=== PATIENT | female | born 1990 | race Hispanic/Latino ===

== ENCOUNTER 2025-02-03 11:04 | Observation (INO) | payer OTHER, MEDICAID, SELFPAY ==
--- NOTE | 2025-02-03 11:50 | PC.NURSE ---
Used translation line (Isha ID # [id number]) to communicate with pt. Discussed admitting symptoms, health and history. Discussed what to expect and plan of care. Pt has no further questions at this time.
[2025-02-03 12:00] VITALS: BP 108/65; PULSE 80
[2025-02-03 12:11] LABS: Add Urine Microscopic? NO; Appearance Urine Clear (Clear); Glucose Urine UA Negative (Negative); Leukocyte Esterase Ur Negative LEU/UL (Negative); Nitrate Urine Negative (Negative); Specific Grav Ur 1.020 (1.001-1.035)
[2025-02-03 12:15] VITALS: BP 113/65; PULSE 76
[2025-02-03 12:30] VITALS: BP 112/71; PULSE 87
[2025-02-03 12:39] VITALS: BMI 37.2
--- NOTE | 2025-02-03 12:46 | OBADM ---
This patient, Lesley Evans, admitted to the OB room [facility] for observation. Patient/family oriented to hospital policies and general routines including ID bracelet, bed and alarms, visiting hours, pain management, procedures, bathroom and other care routines, personal items, smoking policy, room service/diet, and visiting hours. Patient/Family are encouraged to report perceived risks to care and to ask questions if they do not understand what they are told or what they should do.
--- OUTSIDE RECORDS SUMMARY | 2025-02-03 12:57 | XMS_ITS | Data Portability ---
Author Organization [facility] [place] Address [address] [place] [address] Assessment No assessment recorded. Plan of Treatment Reminders Order Date Submit Date Provider Last Modified By Organization Details Last Modified Time Details Appointments OB ROUTINE 2024 02:00P Conchis BACON MD Not available Not available Not available SURG CSection 2024 07:30A Conchis BACON MD Not available Not available Not available SURG POST OP 2024 11:00A Conchis BACON MD Not available Not available Not available Lab bile acids, total, serum 2024 [facility] (Lab), [address], [place], [address], 12/31/2024 13:41:43 CMP, serum or plasma 2024 025 [facility] (Lab), [address], [place], [address], 12/31/2024 13:41:42 CBC w/ auto diff 2024 [facility] (Lab), [address], [place], [address], 12/31/2024 13:41:41 iron + TIBC + ferritin, serum 2024 025 [facility] (Lab), [address], [place], [address], 12/31/2024 13:41:43 glucose tolerance test, gestation al, 3-hour 10/07/ 2025 10/07/2 025 NIRAV [facility] (Lab), [address], [place], [address], 12/31/2024 13:41:42 Referral None recorded. Procedures None recorded. Surgeries section (SURG) 2024 025 [email or web address] [facility], [address], [place], [address], 01/12/2025 13:24:48 Imaging US, obstetric , follow-up 2024 025 [email or web address] [place], [address], [place], [address], 01/12/2025 13:28:36 Medication Orders None recorded. Patient TargetsNo targets recorded. Patient InstructionsNo instructions recorded. Reason for Referral None Reported. Results Created Date Observation Date Name Description Value Unit Range Abnormal Flag Note LastModifiedBy Organization Detail LastModifiedTime 12/16/1912/15/2024 HEMOG LOBIN (HGB) HGB 11.8 g/dL (based on docume nted legal sex) 11.6-1 5.4 Not Available [facility] (Lab) [address], [place], [address], 12/16/2024 14:27:51 12/16/19 25 12/15/2024 HEMAT OCRIT (HCT) HCT 37.1 % (based on docume nted legal sex) 34.0-4 5.0 Not Available [facility] (Lab) [address], [place], [address], 12/16/2024 14:27:51 12/16/19 25 12/15/2024 GTT - GESTA ARSHPOLY Mcrae, ACOG OB glucose, 1 hour screen 173 mg/dL 70-135 high Not Available [facility] (Lab) [address], [place], [address], 12/16/2024 14:27:52 12/16/1912/15/2024 HIV 1/2 ANTIG EN/AN TIBOD Y, REFLE X CONFI RMATI ON HIV antigen/anti body Nonrea ctive nonrea ctive HIV-1 antig en and HIV-1 /HIV- 2 antib odies were not detec lina. No labor atory evide nce of HIV infec tion. Not Available [facility] (Lab) [address], [place], [address], 12/16/2024 14:27:52 12/16/1912/15/2024 RPR SCREE N, REFLE X TITER /CONF IRMAT ION RPR qualitative Nonrea ctive nonrea ctive Not Available [facility] (Lab) [address], [place], [address], 12/16/2024 14:27:53 12/31/19 25 12/30/2024 CBC W/DIF F WBC 8.5 10'3/ uL 3.5-10 .5 Not Available [facility] (Lab) [address], [place], [address], 12/31/2024 13:41:41 12/31/19 25 12/30/2024 CBC W/DIF F RBC 4.47 10'6/ uL (based on docume nted legal sex) 3.80-5 .20 Not Available [facility] (Lab) [address], [place], [address], 12/31/2024 13:41:41 12/31/19 25 12/30/2024 CBC W/DIF F HGB 12.5 g/dL (based on docume nted legal sex) 11.6-1 5.4 Not Available [facility] (Lab) [address], [place], [address], 12/31/2024 13:41:41 12/31/19 25 12/30/2024 CBC W/DIF F HCT 39.4 % (based on docume nted legal sex) 34.0-4 5.0 Not Available [facility] (Lab) [address], [place], [address], 12/31/2024 13:41:41 12/31/19 25 12/30/2024 CBC W/DIF F MCV 88.1 fL 80.0-9 9.0 Not Available [facility] (Lab) [address], [place], [address], 12/31/2024 13:41:41 12/31/19 25 12/30/2024 CBC W/DIF F MCH 28.0 pg 27.0-3 4.0 Not Available [facility] (Lab) [address], [place], [address], 12/31/2024 13:41:41 12/31/19 25 12/30/2024 CBC W/DIF F MCHC 31.7 g/dL 32.0-3 5.5 low Not Available [facility] (Lab) [address], [place], [address], 12/31/2024 13:41:41 12/31/19 25 12/30/2024 CBC W/DIF F RDW 13.8 % 11.0-1 5.0 Not Available [facility] (Lab) [address], [place], [address], 12/31/2024 13:41:41 12/31/19 25 12/30/2024 CBC W/DIF F plt 209 10'3/ uL 150-40 0 Not Available [facility] (Lab) [address], [place], [address], 12/31/2024 13:41:41 12/31/19 25 12/30/2024 CBC W/DIF F MPV 10.3 fL 8.8-12 .1 Not Available [facility] (Lab) [address], [place], [address], 12/31/2024 13:41:41 12/31/19 25 12/30/2024 CBC W/DIF F NRBC's 0.0 % 0.0 Not Available [facility] (Lab) [address], [place], [address], 12/31/2024 13:41:41 12/31/19 25 12/30/2024 CBC W/DIF F absolute NRBCs 0.0 10'3/ uL no refere nce range establ ished Not Available [facility] (Lab) [address], [place], [address], 12/31/2024 13:41:41 12/31/19 25 12/30/2024 CBC W/DIF F neutrophils 69.4 % 34.0-7 3.0 Not Available [facility] (Lab) [address], [place], [address], 12/31/2024 13:41:41 12/31/19 25 12/30/2024 CBC W/DIF F lymphocytes 24.5 % 15.0-5 0.0 Not Available [facility] (Lab) [address], [place], [address], 12/31/2024 13:41:41 12/31/19 25 12/30/2024 CBC W/DIF F monocytes 4.5 % 1.0-15 .0 Not Available [facility] (Lab) [address], [place], [address], 12/31/2024 13:41:41 12/31/19 25 12/30/2024 CBC W/DIF F eosinophils 0.6 % 0.0-8. 0 Not Available [facility] (Lab) [address], [place], [address], 12/31/2024 13:41:41 12/31/19 25 12/30/2024 CBC W/DIF F basophils 0.4 % 0.0-2. 0 Not Available [facility] (Lab) [address] [place], [address], 12/31/2024 13:41:41 12/31/19 25 12/30/2024 CBC W/DIF F immature granulocytes 0.6 % no define d refere nce range Immat ure Granu locyt es (IG) repre sents autom ated enume ratio n of Metam yeloc ytes, Myelo cytes and Promy elocy tracey when IG is < 5%. Blast s are not inclu ded in IG and repor lina separ ately if prese nt. Not Available [facility] (Lab) [address], [place], [address], 12/31/2024 13:41:41 12/31/19 25 12/30/2024 CBC W/DIF F absolute neutrophils 5.9 10'3/ uL 1.5-8. 0 Not Available [facility] (Lab) [address], [place], [address], 12/31/2024 13:41:41 12/31/19 25 12/30/2024 CBC W/DIF F absolute lymphocytes 2.1 10'3/ uL 1.0-4. 0 Not Available [facility] (Lab) [address], [place], [address], 12/31/2024 13:41:41 12/31/19 25 12/30/2024 CBC W/DIF F absolute monocytes 0.4 10'3/ uL 0.2-1. 0 Not Available [facility] (Lab) [address], [place], [address], 12/31/2024 13:41:41 12/31/19 25 12/30/2024 CBC W/DIF F absolute eosinophils 0.1 10'3/ uL 0.0-0. 6 Not Available [facility] (Lab) [address] [place], [address], 12/31/2024 13:41:41 12/31/19 25 12/30/2024 CBC W/DIF F absolute basophils 0.0 10'3/ uL 0.0-0. 3 Not Available [facility] (Lab) [address], [place], [address], 12/31/2024 13:41:41 12/31/19 25 12/30/2024 CBC W/DIF F absolute immature granulocytes 0.1 10'3/ uL 0.00-0 .10 Refer ence range s for nonbi nary/ inter sex or unspe cifie d gende r patie nts have not been estab lishe d. Pleas e refer to the follo wing table for range s estab lishe d for cisge nder patie nts and evalu ate in the clini figueroa sarahi xt of the indiv idual patie nt: [email or web address] :[email or web address] [email or web address] nm.or g/gen derx Not Available [facility] (Lab) [address], [place], [address], 12/31/2024 13:41:41 12/31/19 25 12/30/2024 GTT - GESTA ARSH L, 3 HOUR, ACOG glucose, fasting acog 73 mg/dL 70-94 Not Available [facility] (Lab) [address] [place], [address], 12/31/2024 13:41:42 12/31/19 25 12/30/2024 GTT - GESTA ARSH L, 3 HOUR, ACOG glucose, 1 hour acog 166 mg/dL 70-179 Not Available [facility] (Lab) [address] [place], [address], 12/31/2024 13:41:42 12/31/19 25 12/30/2024 GTT - GESTA ARSH L, 3 HOUR, ACOG glucose, 2 hour acog 167 mg/dL 70-154 high Not Available [facility] (Lab) [address] [place], [address], 12/31/2024 13:41:42 12/31/19 25 12/30/2024 GTT - GESTA ARSH L, 3 HOUR, ACOG glucose, 3 hour acog 137 mg/dL 70-139 Not Available [facility] (Lab) [address] [place], [address], 12/31/2024 13:41:42 12/31/19 25 12/30/2024 CMP(C OMPRE HENSI VE METAB OLIC PANEL ) sodium 137 mmol/ L 133-14 6 Not Available [facility] (Lab) [address], [place], [address], 12/31/2024 13:41:42 12/31/19 25 12/30/2024 CMP(C OMPRE HENSI VE METAB OLIC PANEL ) potassium 4.0 mmol/ L 3.5-5. 1 Not Available [facility] (Lab) [address], [place], [address], 12/31/2024 13:41:42 12/31/19 25 12/30/2024 CMP(C OMPRE HENSI VE METAB OLIC PANEL ) chloride 103 mmol/ L 98-107 Not Available [facility] (Lab) [address], [place], [address], 12/31/2024 13:41:42 12/31/19 25 12/30/2024 CMP(C OMPRE HENSI VE METAB OLIC PANEL ) carbon dioxide 24 mmol/ L 21-31 Not Available [facility] (Lab) [address], [place], [address], 12/31/2024 13:41:42 12/31/19 25 12/30/2024 CMP(C OMPRE HENSI VE METAB OLIC PANEL ) anion gap 10 mmol/ L 4-13 Not Available [facility] (Lab) [address], [place], [address], 12/31/2024 13:41:42 12/31/19 25 12/30/2024 CMP(C OMPRE HENSI VE METAB OLIC PANEL ) blood urea nitrogen 8 mg/dL 7-25 Not Available [facility] (Lab) [address], [place], [address], 12/31/2024 13:41:42 12/31/19 25 12/30/2024 CMP(C OMPRE HENSI VE METAB OLIC PANEL ) creatinine 0.39 mg/dL 0.60-1 .30 low Not Available [facility] (Lab) [address], [place], [address], 12/31/2024 13:41:42 12/31/19 25 12/30/2024 CMP(C OMPRE HENSI VE METAB OLIC PANEL ) egfrcr (CKD-epi 2020) >90 mL/mi n/1.7 3_m2 >=60 Not Available [facility] (Lab) [address], [place], [address], 12/31/2024 13:41:42 12/31/19 25 12/30/2024 CMP(C OMPRE HENSI VE METAB OLIC PANEL ) calcium 8.7 mg/dL 8.3-10 .5 Not Available [facility] (Lab) [address], [place], [address], 12/31/2024 13:41:42 12/31/19 25 12/30/2024 CMP(C OMPRE HENSI VE METAB OLIC PANEL ) glucose 173 mg/dL 70-100 high Not Available [facility] (Lab) [address], [place], [address], 12/31/2024 13:41:42 12/31/19 25 12/30/2024 CMP(C OMPRE HENSI VE METAB OLIC PANEL ) protein, total 6.4 g/dL 6.4-8. 3 Not Available [facility] (Lab) [address], [place], [address], 12/31/2024 13:41:42 12/31/19 25 12/30/2024 CMP(C OMPRE HENSI VE METAB OLIC PANEL ) albumin 3.5 g/dL 3.5-5. 0 Not Available [facility] (Lab) [address], [place], [address], 12/31/2024 13:41:42 12/31/1916 0112/30/2024 CMP(C OMPRE HENSI VE METAB OLIC PANEL ) ALT 18 units /L 9-43 Not Available [facility] (Lab) [address], [place], [address], 12/31/2024 13:41:42 12/31/19 25 12/30/2024 CMP(C OMPRE HENSI VE METAB OLIC PANEL ) alkaline phosphatase 96 units /L 34-104 Not Available [facility] (Lab) [address], [place], [address], 12/31/2024 13:41:42 12/31/19 25 12/30/2024 CMP(C OMPRE HENSI VE METAB OLIC PANEL ) AST 18 units /L 13-39 Not Available [facility] (Lab) [address], [place], [address], 12/31/2024 13:41:42 12/31/19 25 12/30/2024 CMP(C OMPRE HENSI VE METAB OLIC PANEL ) bilirubin, total 0.5 mg/dL 0.2-1. 2 Not Available [facility] (Lab) [address], [place], [address], 12/31/2024 13:41:42 12/31/19 25 12/30/2024 MIRLANDE TIN / IRON / TRANS MIRLANDE N / TIBC iron 123 ug/dL 40-170 Not Available [facility] (Lab) [address], [place], [address], 12/31/2024 13:41:43 12/31/19 25 12/30/2024 MIRLANDE TIN / IRON / TRANS MIRLANDE N / TIBC transferrin 367 mg/dL 200-36 0 high Not Available [facility] (Lab) [address], [place], [address], 12/31/2024 13:41:43 12/31/19 25 12/30/2024 MIRLANDE TIN / IRON / TRANS MIRLANDE N / TIBC ferritin 23.6 NG/mL 8.0-25 2.0 Not Available [facility] (Lab) [address], [place], [address], 12/31/2024 13:41:43 12/31/19 25 12/30/2024 MIRLANDE TIN / IRON / TRANS MIRLANDE N / TIBC TIBC 514 ug/dL 250-45 0 high Not Available [facility] (Lab) [address], [place], [address], 12/31/2024 13:41:43 12/31/19 25 12/30/2024 MIRLANDE TIN / IRON / TRANS MIRLANDE N / TIBC iron saturation 24 % 20-55 Not Available [facility] (Lab) [address], [place], [address], 12/31/2024 13:41:43 12/31/19 25 12/30/2024 BILE ACIDS , TOTAL bile acids, total 3 umol/ L 0-10 Test Perfo rmed by: Jaskaran [facility]z [facility] [address] Not Available [facility] (Lab) [address], [place], [address], 12/31/2024 13:41:43 11/18/19 25 11/17/2024 US, norie tric, limit ed No observ ation record ed. [email or web address] [place] [address], [place], [address], 11/17/2024 15:58:58 11/18/19 25 11/17/2024 US, obstnorbert tric, limit ed No observ ation record ed. anant [email or web address] [address], [place], [address], 12/29/2024 17:09:12 01/13/20 25 01/12/2025 US, elvia tric, follo w-up No observ ation record ed. [email or web address] [place] [address], [place], [address], 01/12/2025 12:15:18 01/13/20 25 01/12/2025 US, obste tric, follo w-up No observ ation record ed. NIRAV Weber [address], [place], [address], 01/26/2025 04:05:19 Result Notes None recorded. Problems Name Problem SNOMED Code Status Onset Date Resolution Date Notes Provider Name and Address Organization Details Recorded Time 90917717 Active 2024 Hilaria Kessler null, [facility] 12:41:52 Deliverie s by [id number] Active 2024 TO REPEAT C/S, would like 03/03 SHAWN BACON MD [address], [place], [address], [facility] 12:31:36 Past history of placenta previa 491081234 Active 2024 Jacob Sanders MD [address], [place], [address], [facility] 12:49:56 Bacteriur ia 41669692 Active 2024 Hilaria Kessler null, [facility] 13:18:44 Bacteriur ia 09472044 Active 2024 Hilaria Kessler null, [facility] 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 12:43:49 Problem Notes None recorded. Procedures Surgical History Date Name Laterality Status Provider Name and Address Organization Details Recorded Time Date of Last Pap Smear completed [facility] 12/29/2024 17:18:43 section completed Hilaria Kessler [facility] 01/21/2023 12:22:47 Imaging Results None recorded. Procedure Notes None recorded. Medical Equipment None Reported. Allergies No known drug allergies Medications Name Sig Start Date Stop Date Status Note LastModified by Organization Details LastModified Time fluconazole 150 mg tablet Take 1 tablet by oral route for 1 day. 11/25 completed Not Available Not Available Not Available metronidazo le 500 mg tablet Take 1 tablet twice a day by oral route for 7 days. 11/17 completed Not Available Not Available Not Available amoxicillin 500 mg tablet TAKE 1 TABLET BY MOUTH TWICE DAILY 11/17 completed Not Available Not Available Not Available active Not Available Not Avai lable Not Available Ismael Fe 1.5/30 (28) 1.5 mg-30 mcg (21)/75 mg (7) tablet TAKE 1 TABLET BY MOUTH ONCE DAILY NEEDS APPOINTME NT 07/28 completed Not Available Not Available Not Available Vitals Date Recorded Body weight Systolic And Diastolic Provider Name and Address Organization Details Last Updated DateTime 12/15/2024 57453.14440 g 103/68 mm[Hg] [facility] 12/15/2024 15:08:01 Date Recorded Body height Body mass index (BMI) Body weight Systolic And Diastolic Provider Name and Address Organization Details Last Updated DateTime 12/29/2024 144.78 cm 38.5 kg/m2 70166.44 g 110/73 mm[Hg] [facility] 12/29/2024 17:18:19 Date Recorded Body weight Body mass index (BMI) Body height Systolic And Diastolic Provider Name and Address Organization Details Last Updated DateTime 01/12/2025 32360.849 49 g 38.3 kg/m2 144.78 cm 105/64 mm[Hg] [facility] 01/12/2025 12:15:11 Date Recorded Body height Body mass index (BMI) Body weight Systolic And Diastolic Provider Name and Address Organization Details Last Updated DateTime 01/27/2025 144.78 cm 38.5 kg/m2 46867.44 g 118/69 mm[Hg] Dia Rocha [facility] 01/27/2025 16:35:03 Social History Question Answer Notes LastModified by Organizat ion Details LastModified Time Tobacco Smoking Status Never Smoker Hilaria Kessler roxana [facility] 01/21/2023 12:22:38 If You Are , What Was Your Level Of Alcohol Consumption Prior To ? Occasional Information not available 08/25/2024 Sex: Unknown Functional Status Question Answer Note LastModified by Organization D etails LastModified Time What is your level of alcohol consumption? None Information not available 08/25/2024 Mental Status None recorded. Family History Relationship Description Onset Age of this Age Resolved Age Notes LastModified by Organization Details LastModified Time Mother Hypertensive disorder [email or web address] Not available 2022 12:22:26 Maternal Grandmother Osteoporosis [email or web address] Not available 01/21/2023 12:22:34 Maternal Grandfather Heart disease [email or web address] Not available 2024 12:06:37 Paternal Grandfather Diabetes mellitus [email or web address] Not available 2024 12:07:04 Paternal Grandmother Diabetes mellitus [email or web address] Not available 2024 12:07:04 Medical History No medical history recorded. Gynecological History Statement/Question Response Date of LMP 05/21/2024 STIs/STDs Y Age of first menstrual cycle 15 Date of Last Pap Smear 08/25/2024 Current Control Method Desired Control Method BCPs LMP Definite Obstetrics History GPAL:G 2 P 1 0 0 1 Type Value Full Term 1 Living 1 Total 2 Past Encounters Encounter ID Performer Location Encounter Start Date Encounter Closed Date Diagnosis/Indication Diagnosis SNOMED-CT Code Diagnosis ICD10 Code Diagnosis IMO Codes Diagnosis Note [id number] Jacob Sanders MD [place] [address] [address] 01/21/2023 10:57:41 01/21/2023 12:55:37 Contraception care management 495821516 Z30.9 Gynecologi c examination 16897391 Z01.419 Annual gynecologi figueroa exam performed. Patient will come back in a year unless there are new symptoms. Suggest Calcium with Vitamin D if not eating in diet. Patient advised to get annual flu shot. Recommend yearly physicals and preform monthly breast exams. Genetic testing is available for patients with family history of cancer. Engage in safe sexual practices, use condoms. Encouraged to have daily exercise. Avoid tobacco and illicit drugs, moderation of alcohol. If BMI greater than 25 dietary consult advised. If you have any questions please call or email. Pap smear- today laboratory evaluation - declined [id number] Jacob Sanders MD [place] [address],[place] [address] 06/29/2024 12:53:38 06/29/2024 13:42:01 Uncertain viability of 005659556 O36.80X0 Z3A.01 [id number] Jacob Sanders MD [place] [address],[place] [address] 07/16/2024 11:04:37 07/16/2024 11:34:30 screening 645633553 Z36.87 Z3A.01 [id number] Jacob Sanders MD [place] [address],[place] [address] 07/28/2024 11:10:44 07/28/2024 11:55:33 Fundal height high for dates 267345629 O26.849 Z3A.08 266465 [id number] Jacob Sanders MD [place] [address],[place] [address] 07/28/2024 11:10:58 07/28/2024 12:47:52 Amenorrhea 90855000 N91.2 37996 this patient is a 34-year-ol d female who presents for amenorrhea . She is a positive test. Ultrasound revealed a 1st trimester gestation. Patient has no complaints . We talked about early care. Talked about genetic screening. We talked about her ultrasound results. We talked about the 12 week ultrasound that has genetic screening components . She was given recommenda tions on exercise, diet, over-the-c ounter medication s. We reviewed her obstetric history. We reviewed her medical history. We reviewed her social history. She will begin routine care at her next visit. [id number] Jacob Sanders MD [place] [address],[place] [address] 08/25/2024 11:38:24 08/25/2024 13:36:34 screening 107462427 Z36.82 Z3A.12 473498 [id number] Jacob Sanders MD [place] [address],[place] [address] 08/25/2024 11:38:57 08/25/2024 12:57:33 care status 514068084 Z34.82 70282582 [id number] SHAWN BACON MD [place] [address],[place] [address] 09/22/2024 11:17:49 09/22/2024 15:51:21 Hog Ribber needed 775573822 Z75.8 9626053733 Gestation period, 16 weeks 83071654 Z3A.16 7654908 [id number] SHAWN BACON MD [place] [address],[place] [address] 10/20/2024 10:30:28 10/20/2024 11:49:04 Ultrasound scan - obstetric 560705144 Z36.3 Z3A.20 97364 [id number] SHAWN BACON MD [place] [address],[place] [address] 10/20/2024 10:30:39 10/20/2024 12:52:06 Genetic disorder carrier 67895963 Z14.8 010529 + carrier for SMA and alpha thalassemi a; needs partner testing prior to next Deliveries by [id number] O82 905521 - desires RCS Gestation period, 20 weeks 53036460 Z3A.20 5980752 [id number] MD Timur BALL [address],[place] [address] 11/17/2024 12:10:34 11/17/2024 14:20:54 Deliveries by [id number] O82 [id number] - [facility] Bacteriuria 66552718 O99 .820 51541806 Gestation period, 24 weeks 857647260 Z3A.24 0997374 [id number] MD Timur BALL [address],[place] [address] 11/17/2024 12:55:45 11/17/2024 13:20:14 Finding related to 777471965 Z03.72 Z3A.24 1669505 [id number] MD Timur BALL [address],[place] [address] 12/15/2024 14:54:05 12/15/2024 15:57:01 Deliveries by [id number] O82 094668 - [facility] Gestation period, 28 weeks 32584051 Z3A.28 1069724 [id number] MD Timur BALL [address],[place] [address] 12/29/2024 17:08:45 01/01/2025 08:55:23 Itching of skin 251280252 L29.89 [id number] Deliveries by [id number] O82 [id number] - [facility] Gestation period, 30 weeks 33563919 Z3A.30 0333762 [id number] MD Timur BALL [address],[place] [address] 01/12/2025 11:06:56 01/12/2025 12:11:01 Placenta circumvallata 7073479 O43.113 Z3A.32 5418527 [id number] MD Timur BALL [address],[place] [address] 01/12/2025 11:07:09 01/12/2025 12:46:52 Deliveries by [id number] O82 021677 - [facility] Gestation period, 32 weeks 8454476 Z3A.32 7767536 [id number] MD Timur BALL [address] [address],[place] [address] 01/27/2025 16:23:34 01/27/2025 17:02:24 Bacteriuria [id number] O99.820 [id number] Deliveries by [id number] - desires [facility] Concerns Section Related Observation LastModified by Organization Detai ls LastModified Time None Recorded Concern Status LastModified by Organization Details LastModified Time None Recorded Advance Directives Directive None Recorded Payers Insurance Date Sequence Insurance Name Policy Number Policy Guillen Covered Member ID Guillen Member ID Guarantor Name 06/29/2024 1 *SELF PAY* Amee cyr Evans 01/24/2025 1 [facility] [id number] Neptrixie C Evans [id number] Nepmary Evans 01/24/2025 2 [place] [facility] Gigiy Evans [id number] Nepmary Evans Notes Date Note Type Note Provider Name and Address Organization Details Recorded Time 12/15/2024 text/html Generic HPI TemplateReported by Patient SHAWN BACON MD [address], [place], [address], [facility] 12/15/2024 15:56:24 12/29/2024 text/html Generic HPI TemplateReported by Patient SHAWN ABCON MD [address], [place], [address], [facility] 01/01/2025 00:25:51 01/12/2025 text/html Generic HPI TemplateReported by Patient Dia schmidt, [facility] 01/12/2025 14:45:18 01/27/2025 text/html Generic HPI TemplateReported by Patient SHAWN BACON MD [address], [place], [address], [facility] 01/27/2025 17:01:00 OBGyn Episode Ob Episode Information Episode Created Date Number of Fetuses Patient Bloodtype Patient rh Status Prepregnancy Weight lbs Domestic Partner Domestic Partner Phone Father Name Security System Engineer Status 01/22/20 23 1 CLOSED Fetus Data First Name Last Name Admitted to NICU Weight (g) Sex Living Outcome Pediatric Complications Fetus ID Race Codes Race Delivery Type 5.88 [id number] F Full Term [id number] Primary Lawrence Calculation Initial Lawrence Date Initial Exam Date Initial Exam Provider Initial Ultrasound Date Last Menstrual Period Date Ultra Sound Weeks Gestation 0 Eighteen To Twenty Week Lawrence Update Ultra Sound Date Fundal Height At Umbil Quickening Date Ultra Sound Latest Weeks Gestation Final Lawrence Confirmed By Final Lawrence Confirmed Date Final Lawrence Date Ultra Sound Latest Days Gestation 0 0 Menstrual History Last Menstrual Date Menses Monthly On Bcp Conception Prior Menses Frequency Hcg Plus Date Menarche Onset Age Delivery Information Delivery Date Delivery Type Labor Anesthesia Weeks Gestation Incision Type Labor Labor Length Hrs Delivered By Post Complications Tubal Sterilization Discharge Date Comments 5 38 Carlott a placenta previa Discharge Information Feeding Method Contraceptive Method Maternal HG B and HCT Levels Ob Episode Information Episode Created Date Number of Fetuses Patient Bloodtype Patient rh Status Prepregnancy Weight lbs Domestic Partner Domestic Partner Phone Father Name Security System Engineer Status 08/26/19 25 1 O Positive [address] Paolo s OPEN Fetus Data First Name Last Name Admitted to NICU Weight (g) Sex Living Outcome Pediatric Complications Fetus ID Race Codes Race Delivery Type [id number] Problems Problem Notes Problem Name Start Date End Date Resolution Snomed Code Not e Bacteriuria 09/04/2024 [id number] Genetic disorder carrier 10/20/2024 [id number] + 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; needs partner testing prior to next Past history of placenta previa 08/25/2024 [id number] Deliveries by 08/25/[id number] TO REPEAT C/S, would like 03/03 Lawrence Calculation Initial Lawrence Date Initial Exam Date Initial Exam Provider Initial Ultrasound Date Last Menstrual Period Date Ultra Sound Weeks Gestation 08/25/2024 07/16/2024 05/21/2024 6 Eighteen To Twenty Week Lawrence Update Ultra Sound Date Fundal Height At Umbil Quickening Date Ultra Sound Latest Weeks Gestation Final Lawrence Confirmed By Final Lawrence Confirmed Date Final Lawrence Date Ultra Sound Latest Days Gestation 0 [email or web address] 08/25/2024 03/06/20 25 0 Pre-paul Flowsheet Flowsheet Date 08/25/2024 Cuevas Score Blood Edema Fundus Height Fundus Units Glucose Ketones Leukocytes Nitrite Labor Signs Protein Cervic Dilation Cervic Effacement Cervic Station Type Weight in lbs Pre/Post Dialysis Refused BP Diastolic BP Location Tested BP Systolic BP Type Fetus Heart Rate Present Fetus Movement Comments Flowsheet Date 08/25/2024 Cuevas Score Blood Edema Fundus Height Fundus Units Glucose Ketones Leukocytes Nitrite Labor Signs Protein Cervic Dilation Cervic Effacement Cervic Station Type Weight in lbs Pre/Post Dialysis Refused Weight 163.772334632331 BP Diastolic BP Location Tested BP Systolic BP Type 83 L arm 120 sitting Fetus Heart Rate Present Fetus Movement A No Comments this patient is a 34-year-ol d multiparous female at 12 weeks' gestation who presents for initial care. She has a history of term . Her medical, surgical, obstetric history is unremarkable. She is vaccinated. She was given precautions recommendations for . We talked about vaccines in . Talked about care in detail. She is having genetic testing. She had a normal 12 week ultrasound. To begin routine care. Flowsheet Date 09/22/2024 Cuevas Score Blood Edema Fundus Height Fundus Units Glucose Ketones Leukocytes Nitrite Labor Signs Protein Cervic Dilation Cervic Effacement Cervic Station Type Weight in lbs Pre/Post Dialysis Refused Weight 166.961075565255 BP Diastolic BP Location Tested BP Systolic BP Type 66 L arm 106 sitting Fetus Heart Rate Present A 145 Fetus Movement A Yes Comments Doing well. Had some vaginal itching, BV on pap smear. Medications sent yesterday, has not started yet. Used OTC miconazole x2, no improvement. Having some bilateral leg swelling. Hx of placenta previa in her prior , discussed that this has low risk of recurrence. Anatomy US next visit. OB labs wnl, NIPT to be drawn today. RTC 4 weeks. Flowsheet Date 10/20/2024 Cuevas Score Blood Edema Fundus Height Fundus Units Glucose Ketones Leukocytes Nitrite Labor Signs Protein Cervic Dilation Cervic Effacement Cervic Station Type Weight in lbs Pre/Post Dialysis Refused BP Diastolic BP Location Tested BP Systolic BP Type Fetus Heart Rate Present Fetus Movement Comments Flowsheet Date 10/20/2024 Cuevas Score Blood Edema Fundus Height Fundus Units Glucose Ketones Leukocytes Nitrite Labor Signs Protein Cervic Dilation Cervic Effacement Cervic Station Type Weight in lbs Pre/Post Dialysis Refused Weight 168.634957627122 BP Diastolic BP Location Tested BP Systolic BP Type 70 L arm 108 sitting Fetus Heart Rate Present A Present Fetus Movement A Yes Comments Good movement. No furt her itching, now resolved. Anatomy US normal and complete, EFW 75%. Repeat at 32 weeks. No evidence of placenta previa. LR male NIPT! Carrier screening +SMA and alpha thal, discussed with patient. Recommend partner testing prior to next . Flowsheet Date 11/17/2024 Cuevas Score Blood Edema Fundus Height Fundus Units Glucose Ketones Leukocytes Nitrite Labor Signs Protein Cervic Dilation Cervic Effacement Cervic Station Type Weight in lbs Pre/Post Dialysis Refused BP Diastolic BP Location Tested BP Systolic BP Type Fetus Heart Rate Present Fetus Movement Comments Flowsheet Date 11/17/2024 Cuevas Score Blood Edema Fundus Height Fundus Units Glucose Ketones Leukocytes Nitrite Labor Signs Protein Cervic Dilation Cervic Effacement Cervic Station Type Weight in lbs Pre/Post Dialysis Refused Weight 172.211829545785 BP Diastolic BP Location Tested BP Systolic BP Type 72 L arm 108 sitting Fetus Heart Rate Present A 150 Fetus Movement A Yes Comments Having increased vaginal dis charge and irritation. Has tried clotrimazole cream without relief. Will send diflucan. Having less movement since hitting her belly on a door at work. No bleeding or cramping. Will follow with ultrasound to evaluate. Discussed GCT and labs for next visit. RTC 4 weeks. Flowsheet Date 12/15/2024 Cuevas Score Blood Edema Fundus Height Fundus Units Glucose Ketones Leukocytes Nitrite Labor Signs Protein Cervic Dilation Cervic Effacement Cervic Station Type Weight in lbs Pre/Post Dialysis Refused 178.090246001456 BP Diastolic BP Location Tested BP Systolic BP Type 68 L arm 103 sitting Fetus Heart Rate Present A 145 Fetus Movement A Yes Comments Doing well, baby active. No cramping or bleeding. GCT and labs today. Discussed tdap and RSV vaccine. Repeat growth US at 32 weeks. RTC 2 weeks. Flowsheet Date 12/29/2024 Cuevas Score Blood Edema Fundus Height Fundus Units Glucose Ketones Leukocytes Nitrite Labor Signs Protein Cervic Dilation Cervic Effacement Cervic Station Type Weight in lbs Pre/Post Dialysis Refused Weight 178.625674628711 BP Diastolic BP Location Tested BP Systolic BP Type 73 L arm 110 sitting Fetus Heart Rate Present A 135 Fetus Movement A Yes Comments Good movement. No blee ding. Reports right sided arm, torso and leg pain and itching of 6/10. Will check bile acids, CMP and ferritin. Discussed tdap and RSV vaccine. GCT elevated, discussed 3h GTT. Will come in tomorrow morning. Repeat growth US next visit at 32 weeks. Flowsheet Date 01/12/2025 Cuevas Score Blood Edema Fundus Height Fundus Units Glucose Ketones Leukocytes Nitrite Labor Signs Protein Cervic Dilation Cervic Effacement Cervic Station Type Weight in lbs Pre/Post Dialysis Refused BP Diastolic BP Location Tested BP Systolic BP Type Fetus Heart Rate Present Fetus Movement Comments Flowsheet Date 01/12/2025 Cuevas Score Blood Edema Fundus Height Fundus Units Glucose Ketones Leukocytes Nitrite Labor Signs Protein Cervic Dilation Cervic Effacement Cervic Station Type Weight in lbs Pre/Post Dialysis Refused 177.792999370725 BP Diastolic BP Location Tested BP Systolic BP Type 64 L arm 105 sitting Fetus Heart Rate Present A Present Fetus Movement A Yes Comments Doing well, good movem ent. Itching has improved. Bile acids and CMP wnl. Passed 3h GTT. EFW 63%, vertex, MAGDALENO wnl. Discussed tdap and RSV vaccine, vaccine orders given. Will schedule preadmission and RCS. RTC 2 weeks. Flowsheet Date 01/27/2025 Cuevas Score Blood Edema Fundus Height Fundus Units Glucose Ketones Leukocytes Nitrite Labor Signs Protein Cervic Dilation Cervic Effacement Cervic Station Type Weight in lbs Pre/Post Dialysis Refused Weight 178.423149853791 BP Diastolic BP Location Tested BP Systolic BP Type 69 L arm 118 sitting Fetus Heart Rate Present Fetus Movement A Yes Comments Good movement. No cram ping or bleeding. Discussed day of c section. Patient would like to start leave at 36 weeks due to very physical job. Will send [facility] paperwork to the office. Received tdap, RSV and flu vaccines. Preadmission scheduled. RTC 2 weeks. Menstrual History Last Menstrual Date Menses Monthly On Bcp Conception Prior Menses Frequency Hcg Plus Date Menarche Onset Age 0205/21/2024 true Delivery Information Delivery Date Delivery Type Labor Anesthesia Weeks Gestation Incision Type Labor Labor Length Hrs Delivered By Post Complications Tubal Sterilization Discharge Date Comments Discharge Information Feeding Method Contraceptive Method Maternal HG B and HCT Levels
[2025-02-03 13:00] VITALS: BP 114/70; PULSE 69
--- NOTE | 2025-02-03 13:21 | PC.NURSE ---
Dr. Slater on unit and informed pt c/o abdominal pain last night that kept her from being able to sleep. Yesterday she felt like she leaked fluid once after using the bathroom. ROM plus was negative. FHT's reactive with occasional contraction noted. Pt just feeling an occasional pressure now, nothing like last night. Order received to check cervix and then may discharge to home.
--- NOTE | 2025-02-03 13:27 | PC.NURSE ---
SVE is closed, thick, -2 station and posterior.
[2025-02-03 13:32] LABS: OBXCEM ROM Plus Negative (Negative)
--- NOTE | 2025-02-08 17:11 | P.PNOB_ITS ---
OB - Triage/Final Diagnosis Visit Information Comments/Additional reasons for admission: I have assessed the risk for this patient, Lesley Evans, and determined that she would benefit from observation care. Evaluation Laboratory results: Laboratory Tests 02/03/25 02/03/25 12:04 13:00 Urine Color Yellow Urine Appearance Clear Urine pH 6.5 Ur Specific [place] 1.020 Urine Protein Negative Urine Glucose (UA) Negative Urine Ketones Negative Ur Blood (Man) Negative Urine Nitrate Negative Urine Bilirubin Negative Urine Urobilinogen 1.0 Leukocyte Esterase Rfl Negative Membranes Rupture Rom plus negative Final Diagnosis (1) Abdominal pain affecting : Code(s): O26.899 - Other specified related conditions, unspecified trimester; R10.9 - Unspecified abdominal pain Status: Acute
== END 2025-02-03 14:10 | disposition home or self-care (01) ==
LOC: ANHOBPP 13:52 → ANHLDR 14:24
PROVIDERS: Admitting Provider Obstetrics & Gynecology; Visit Provider Obstetrics & Gynecology
DX: O26.893 Other specified pregnancy related conditions, third trimester (principal); Z3A.36 36 weeks gestation of pregnancy; R10.9 Unspecified abdominal pain
CPT/HCPCS: 81003; 84112; G0378; G0379

== ENCOUNTER 2025-03-03 05:12 | Inpatient (IN) | payer OTHER, MEDICAID, SELFPAY ==
[2025-03-03] VITALS (76 sets, daily range): BP systolic 88–136; BP diastolic 50–98; PULSE 40–100; RESP 15–20; TEMP 36.3–36.8; O2SAT 84–100; BMI 39.0
--- OUTSIDE RECORDS SUMMARY | 2025-03-03 00:35 | XMS_ITS | Continuity of Care Document ---
Author Organization [facility] [place], P.[place], [place] Address [address] [place] [address] Assessment No assessment recorded. Plan of Treatment Reminders Order Date Submit Date Provider Last Modified By Organization Details Last Modified Time Details Appointments SURG CSection 2024 07:30A Conchis BACON MD Not available Not available Not available SURG POST OP 2024 11:00A Conchis BACON MD Not available Not available Not available Lab None recorded. Referral None recorded. Procedures None recorded. Surgeries None recorded. Imaging None recorded. Medication Orders None recorded. Patient TargetsNo targets recorded. Patient InstructionsNo instructions recorded. Reason for Referral None Reported. Results Created Date Observation Date Name Description Value Unit Range Abnormal Flag Note LastModifiedBy Organization Detail LastModifiedTime 09/29/19 25 09/28/2024 [UNIT Y] ANEUP LOIDY NIPT fraction 4.6% normal Not Available [facility] [address], [place], [address], 09/28/2024 23:42:26 09/29/19 25 09/28/2024 [UNIT Y] ANEUP LOIDY NIPT 22Q11.2 microdeletio n LOW RISK <1 in 10,000 normal Not Available [facility] [address], [place], [address], 09/28/2024 23:42:26 09/29/19 25 09/28/2024 [UNIT Y] ANEUP LOIDY NIPT sex chromosome aneuploidy NOT DETECT ED normal Not Available [facility] [address], [place], [address], 09/28/2024 23:42:26 09/29/19 25 09/28/2024 [UNIT Y] ANEUP LOIDY NIPT monosomy X LOW RISK <1 in 10,000 normal Not Available [facility] [address], [place], [address], 09/28/2024 23:42:26 09/29/19 25 09/28/2024 [UNIT Y] ANEUP LOIDY NIPT trisomy 13 LOW RISK <1 in 10,000 normal Not Available [facility] [address], [place], [address], 09/28/2024 23:42:26 09/29/19 25 09/28/2024 [UNIT Y] ANEUP LOIDY NIPT trisomy 18 LOW RISK <1 in 10,000 normal Not Available [facility] [address], [place], [address], 09/28/2024 23:42:26 09/29/19 25 09/28/2024 [UNIT Y] ANEUP LOIDY NIPT trisomy 21 LOW RISK <1 in 10,000 normal Not Available [facility] [address], [place], [address], 09/28/2024 23:42:26 09/29/19 25 09/28/2024 [UNIT Y] ANEUP LOIDY NIPT sex MALE normal Not Available [facility] [address], [place], [address], 09/28/2024 23:42:26 09/29/19 25 09/28/2024 [UNIT Y] ANEUP LOIDY NIPT gestation SINGLE TON normal Not Available [facility] [address], [place], [address], 09/28/2024 23:42:26 09/29/19 25 09/28/2024 [UNIT Y] ANEUP LOIDY NIPT for detailed report, see pdf See PDF normal Not Available [facility] [address], [place], [address], 09/28/2024 23:42:26 10/08/19 25 10/07/2024 [UNIT Y] CHARLEEN Mcrae fraction 5.7% normal Not Available [facility] [address], [place], [address], 10/07/2024 00:49:52 10/08/19 25 10/07/2024 [UNIT Y] CHARLEEN CATHIE TYSON N alpha-thalas semia nipt result LOW RISK 1 in 2,300 ( patern al ethnic ity); 1 in 14,000 (Gener al popula tion) normal Not Available [facility] [address], [place], [address], 10/07/2024 00:49:52 10/08/19 25 10/07/2024 [UNIT Y] CHARLEEN TYSON N spinal muscular atrophy nipt result LOW RISK 1 in 4000 normal Not Available [facility] [address], [place], [address], 10/07/2024 00:49:52 10/08/19 25 10/07/2024 [UNIT Y] CHARLEEN Mcrae sickle cell disease/beta -thalassemia /hemoglobino pathies carrier screen NEGATI VE normal Not Available [facility] [address], [place], [address], 10/07/2024 00:49:52 10/08/19 25 10/07/2024 [UNIT Y] CHARLEEN TYSON N alpha-thalas semia carrier screen POSITI VE Silent tanvi r; aa/a- abnormal Not Available [facility] [address], [place], [address], 10/07/2024 00:49:52 10/08/19 25 10/07/2024 [UNIT Y] CHARLEEN TYSON N cystic fibrosis carrier screen NEGATI VE normal Not Available [facility] [address], [place], [address], 10/07/2024 00:49:52 10/08/19 25 10/07/2024 [UNIT Y] CHARLEEN Mcrae spinal muscular atrophy carrier screen POSITI VE 1 SMN1 copy abnormal Not Available [facility] [address], [place], [address], 10/07/2024 00:49:52 10/08/19 25 10/07/2024 [UNIT Y] CHARLEEN Mcrae for detailed report, see pdf See PDF normal Not Available [facility] [address], [place], [address], 10/07/2024 00:49:52 08/26/19 25 08/25/2024 CBC W/DIF F WBC 8.4 10'3/ uL 3.5-10 .5 Not Available [facility] (Lab) [address], [place], [address], 08/26/2024 12:03:47 08/26/19 25 08/25/2024 CBC W/DIF F RBC 4.46 10'6/ uL (based on docume nted legal sex) 3.80-5 .20 Not Available [facility] (Lab) [address] [place], [address], 08/26/2024 12:03:47 08/26/19 25 08/25/2024 CBC W/DIF F HGB 12.3 g/dL (based on docume nted legal sex) 11.6-1 5.4 Not Available [facility] (Lab) [address] [place], [address], 08/26/2024 12:03:47 08/26/19 25 08/25/2024 CBC W/DIF F HCT 37.8 % (based on docume nted legal sex) 34.0-4 5.0 Not Available [facility] (Lab) [address], [place], [address], 08/26/2024 12:03:47 08/26/19 25 08/25/2024 CBC W/DIF F MCV 84.8 fL 80.0-9 9.0 Not Available [facility] (Lab) [address], [place], [address], 08/26/2024 12:03:47 08/26/19 25 08/25/2024 CBC W/DIF F MCH 27.6 pg 27.0-3 4.0 Not Available [facility] (Lab) [address], [place], [address], 08/26/2024 12:03:47 08/26/19 25 08/25/2024 CBC W/DIF F MCHC 32.5 g/dL 32.0-3 5.5 Not Available [facility] (Lab) [address], [place], [address], 08/26/2024 12:03:47 08/26/19 25 08/25/2024 CBC W/DIF F RDW 13.2 % 11.0-1 5.0 Not Available [facility] (Lab) [address], [place], [address], 08/26/2024 12:03:47 08/26/19 25 08/25/2024 CBC W/DIF F plt 254 10'3/ uL 150-40 0 Not Available [facility] (Lab) [address], [place], [address], 08/26/2024 12:03:47 08/26/19 25 08/25/2024 CBC W/DIF F MPV 10.2 fL 8.8-12 .1 Not Available [facility] (Lab) [address], [place], [address], 08/26/2024 12:03:47 08/26/19 25 08/25/2024 CBC W/DIF F NRBC's 0.0 % 0.0 Not Available [facility] (Lab) [address], [place], [address], 08/26/2024 12:03:47 08/26/19 25 08/25/2024 CBC W/DIF F absolute NRBCs 0.0 10'3/ uL no refere nce range establ ished Not Available [facility] (Lab) [address] [facility], [place], [address], 08/26/2024 12:03:47 08/26/19 25 08/25/2024 CBC W/DIF F neutrophils 67.0 % 34.0-7 3.0 Not Available [facility] (Lab) [address] [facility], [place], [address], 08/26/2024 12:03:47 08/26/19 25 08/25/2024 CBC W/DIF F lymphocytes 24.5 % 15.0-5 0.0 Not Available [facility] (Lab) [address] [facility], [place], [address], 08/26/2024 12:03:47 08/26/19 25 08/25/2024 CBC W/DIF F monocytes 6.3 % 1.0-15 .0 Not Available [facility] (Lab) [address] [facility], [place], [address], 08/26/2024 12:03:47 08/26/19 25 08/25/2024 CBC W/DIF F eosinophils 1.2 % 0.0-8. 0 Not Available [facility] (Lab) [address] [place], [address], 08/26/2024 12:03:47 08/26/19 25 08/25/2024 CBC W/DIF F basophils 0.2 % 0.0-2. 0 Not Available [facility] (Lab) [address] [facility], [place], [address], 08/26/2024 12:03:47 08/26/19 25 08/25/2024 CBC W/DIF F immature granulocytes 0.8 % no define d refere nce range Immat ure Granu locyt es (IG) repre sents autom ated enume ratio n of Metam yeloc ytes, Myelo cytes and Promy elocy tracey when IG is < 5%. Blast s are not inclu ded in IG and repor lina separ ately if prese nt. Not Available [facility] (Lab) [address] [facility], [place], [address], 08/26/2024 12:03:47 08/26/19 25 08/25/2024 CBC W/DIF F absolute neutrophils 5.6 10'3/ uL 1.5-8. 0 Not Available [facility] (Lab) [address] [facility], [place], [address], 08/26/2024 12:03:47 08/26/19 25 08/25/2024 CBC W/DIF F absolute lymphocytes 2.1 10'3/ uL 1.0-4. 0 Not Available [facility] (Lab) [address] [facility], [place], [address], 08/26/2024 12:03:47 08/26/19 25 08/25/2024 CBC W/DIF F absolute monocytes 0.5 10'3/ uL 0.2-1. 0 Not Available [facility] (Lab) [address] [facility], [place], [address], 08/26/2024 12:03:47 08/26/19 25 08/25/2024 CBC W/DIF F absolute eosinophils 0.1 10'3/ uL 0.0-0. 6 Not Available [facility] (Lab) [address] [facility], [place], [address], 08/26/2024 12:03:47 08/26/19 25 08/25/2024 CBC W/DIF F absolute basophils 0.0 10'3/ uL 0.0-0. 3 Not Available [facility] (Lab) [address] [place], [address], 08/26/2024 12:03:47 08/26/19 25 08/25/2024 CBC W/DIF F absolute immature granulocytes 0.1 10'3/ uL 0.00-0 .10 Refer ence range s for nonbi nary/ inter sex or unspe cifie d gende r patie nts have not been estab lishe d. Pleas e refer to the [facility] table for range s estab lishe d for cisge nder patie nts and evalu ate in the clini figueroa sarahi xt of the indiv idual patie nt: https :[email or web address] book. [email or web address].or g/gen derx Not Available [facility] (Lab) [address], [place], [address], 08/26/2024 12:03:47 08/26/1908/25/2024 TYPE/ RH/SC REEN ABO/Rh type O POS Not Available [facility] (Lab) [address] [place], [address], 08/26/2024 12:03:48 08/26/19 25 08/25/2024 TYPE/ RH/SC REEN antibody screen NEG Not Available [facility] (Lab) [address], [place], [address], 08/26/2024 12:03:48 08/26/19 25 08/25/2024 TYPE/ RH/SC REEN exp date 2024 23:59 Not Available [facility] (Lab) [address] [place], [address], 08/26/2024 12:03:48 08/26/19 25 08/25/2024 HEPAT ITIS B SURFA CE ANTIG EN hepatitis B surface antigen Non-re active non-re active This assay was perfo rmed using [employer] ratio n reage nts and test kits. Value s obtai ellie with other assay metho ds or kits canno t be used inter smith eably . Not Available [facility] (Lab) [address], [place], [address], 08/26/2024 12:03:48 08/26/19 25 08/25/2024 HEPAT ITIS C ANTIB JAMEEL SCREE N, REFLE X TO CONFI RMATI ON hepatitis C antibody Non-re active non-re active Antib odies to HCV Not Detec lina, does not exclu de the possi bilit y of expos ure to HCV. Not Available [facility] (Lab) [address] [place], [address], 08/26/2024 12:03:49 08/26/19 25 08/25/2024 TSH, REFLE X FREE T4 TSH 1.44 uIU/m L 0.30-5 .33 Not Available [facility] (Lab) [address] [place], [address], 08/26/2024 12:03:49 08/26/19 25 08/25/2024 RUBEL LA IGG ANTIB JAMEEL, QUANT rubella antibodies, IgG Reacti ve reacti ve Not Available [facility] (Lab) [address] [place], [address], 08/26/2024 12:03:50 08/26/19 25 08/25/2024 RUBEL LA IGG ANTIB JAMEEL, QUANT rubella antibodies, IgG quant 242.9 IU/mL >=10 Non-r eacti ve (Non- Immun e) <10 IU/mL React veronica (Immu ne) > or = 10 IU/mL Not Available [facility] (Lab) [address] [place], [address], 08/26/2024 12:03:50 08/26/19 25 08/25/2024 HEMOG LOBIN A1C hemoglobin A1C 4.8 % 4.0-5. 6 The Ameri can [employer]abe tracey [employer] iatio n recom mends that a prima ry goal of thera py rosaul d be a HBA1C of < 7% and that physi cians rosaul d reeva luate the treat ment regim en in patie nts with HBA1C value s consi stent ly > 8%. <5.7% Laure l 5.7 - 6.4% Incre ased risk for diabe tracey >=6.5 % Diagn ostic of diabe tracey <7.0% Goal of thera py >8.0% Actio n sugge sted Not Available [facility] (Lab) [address] [facility], [place], [address], 08/26/2024 12:03:50 08/26/19 25 08/25/2024 RPR SCREE N, REFLE X TITER /CONF IRMAT ION RPR qualitative Nonrea ctive nonrea ctive Not Available [facility] (Lab) [address] [facility], [place], [address], 08/26/2024 12:03:51 08/26/19 25 08/25/2024 IMAGE GUIDE D PAP AND HPV REGAR DLESS image guided Pap, HPV regardless of Pap result SEE RESULT S BELOW CASE REPOR T: Cytol ogy Gynec ologi figueroa Repor t Case: [id number] Autho shelley g Provi ruben: Madeline Sanders MD Colle cted: 08/25 1442 Order ing Locat ion: [place] Path[facility] Recei adriana: 08/26 0738 First Scree n: Jessica Gaytan een: Brandon Robles ed, CT Speci men: Screnorbert luana Pap - Image d, Cervi x STATE MENT OF ADEQU ACY: Satis facto ry for evalu ation Trans forma tion zone compo nent prese nt ----- ----- ----- ----- ----- ----- ----- ----- ----- ----- ----- ----- ----- ----- ----- ----- ----- ---- FINAL DIAGN OSIS: Negat veronica for Intra epith elial Lesio n or Casa funes (NIL) . Shift in dania sugge stive of bacte rial vagin osis. Elect alan diaz d by Brandon Robles ed, CT on 025 at 2320 CDT ----- ----- ----- ----- ----- ----- ----- ----- ----- ----- ----- ----- ----- ----- ----- ----- ----- ---- HPV RESUL TS: HPV mRNA E6/E7 : No HPV mRNA Detec lina NOTE: This high risk HPV mRNA assay detec ts fourt een high- risk HPV types (16, 18, 31, 33, 35, 39, 45, 51, 52, 56, 58, 59, 66, 68) witho ut diffe renti ation . COMME NT: This speci men was revie wed by a Cytot echno logis t and/o r Patho logis t (as indic ated in this repor t) after evalu ation using the Thinp rep Imagi ng Syste m. CLINI FIGUEROA INFOR MATIO N: Menst rual Statu s: LMP (if appli cable ): 2024 Clini figueroa Histo ry/Pr eviou s Pap: Type of Neopl aroldo (if appli cable ): Signi fican t Clini figueroa Findi ngs: Other Histo ry: Hormo mayra (if appli cable ): PAP EDUCA ARSH L NOTE: The Pap Test is a scree luana test with an inher ent false negat veronica rate. Liqui d-bas ed sampl ing may decre ase, but will not elimi santos, false negat veronica resul ts. A negat veronica resul t does not precl ude the prese nce and/o r devel opmen t of disea se, since the prese nce of abnor mal cells in the sampl e depen ds on the locat ion of the lesio n and sampl ing techn ique. Karen nued regul ar scree luana is the best metho d of cance r preve ntion . If repor lina cytol ogic findi ng do not corre late with physi figueroa and/o r histo rical findi ngs, furth er inves tigat ion is recom torey d, as clini lala summers nted. Not Available [facility] (Lab) [address] [facility], [place], [address], 08/27/2024 04:01:28 08/26/19 25 08/25/2024 CULTU RE: URINE result report SEE RESULT S BELOW abnormal Test: Cultu re: Urine Speci men Sourc e: Urine Voide d Speci men Type: Urine Speci men Date: 1442 Resul t Date: 257 Resul t Statu s: Final resul t Abnor mal: Yes Resul ting Lab: [facility] [address] [facility] [address] Tel: CULTU RE ----- ----- ----- --- 25,00 0-50, 000 CFU/m l Strep tococ cus agala ctiae (Grou p B) (Abno rmal) Strep tococ cus agala ctiae (Beta strep Group B Strep ) remai ns unive rsall y susce ptibl e to penic illin , cefaz sejal and vanco mycin . If clind elizabeth n is being consi dered for intra partu m proph ylaxi s, pleas e conta ct the lab withi n 5 days. Not Available [facility] (Lab) [address] , [place], [address], 08/27/2024 04:01:29 09/23/1909/22/2024 HIV 1/2 ANTIG EN/AN TIBOD Y, REFLE X CONFI RMATI ON HIV antigen/anti body Nonrea ctive nonrea ctive Phleb otomi [facility] this test on 08/25 . Do not charg e for venip unctu re. HIV-1 antig en and HIV-1 /HIV- 2 antib odies were not detec lina. No labor atory evide nce of HIV infec tion. Not Available [facility] (Lab) [address] , [place], [address], 09/23/2024 04:49:59 12/16/1912/15/2024 HEMOG LOBIN (HGB) HGB 11.8 g/dL (based on docume nted legal sex) 11.6-1 5.4 Not Available [facility] (Lab) [address] [facility], [place], [address], 12/16/2024 14:27:51 12/16/19 25 12/15/2024 HEMAT OCRIT (HCT) HCT 37.1 % (based on docume nted legal sex) 34.0-4 5.0 Not Available [facility] (Lab) [address] [facility], [place], [address], 12/16/2024 14:27:51 12/16/19 25 12/15/2024 GTT - GESTA ARSH L JAH N, ACOG OB glucose, 1 hour screen 173 mg/dL 70-135 high Not Available [facility] (Lab) [address] [facility], [place], [address], 12/16/2024 14:27:52 12/16/19 25 12/15/2024 HIV 1/2 ANTIG EN/AN TIBOD Y, REFLE X CONFI RMATI ON HIV antigen/anti body Nonrea ctive nonrea ctive HIV-1 antig en and HIV-1 /HIV- 2 antib odies were not detec lina. No labor atory evide nce of HIV infec tion. Not Available [facility] (Lab) [address] [facility], [place], [address], 12/16/2024 14:27:52 12/16/1912/15/2024 RPR SCREE N, REFLE X TITER /CONF IRMAT ION RPR qualitative Nonrea ctive nonrea ctive Not Available [facility] (Lab) [address] [facility], [place], [address], 12/16/2024 14:27:53 12/31/19 25 12/30/2024 CBC W/DIF F WBC 8.5 10'3/ uL 3.5-10 .5 Not Available [facility] (Lab) [address] , [place], [address], 12/31/2024 13:41:41 12/31/19 25 12/30/2024 CBC W/DIF F RBC 4.47 10'6/ uL (based on docume nted legal sex) 3.80-5 .20 Not Available [facility] (Lab) [address], [place], [address], 12/31/2024 13:41:41 12/31/19 25 12/30/2024 CBC W/DIF F HGB 12.5 g/dL (based on docume nted legal sex) 11.6-1 5.4 Not Available [facility] (Lab) [address], [place], [address], 12/31/2024 13:41:41 12/31/19 25 12/30/2024 CBC W/DIF F HCT 39.4 % (based on docume nted legal sex) 34.0-4 5.0 Not Available [facility] (Lab) [address], [place], [address], 12/31/2024 13:41:41 12/31/19 25 12/30/2024 CBC W/DIF F MCV 88.1 fL 80.0-9 9.0 Not Available [facility] (Lab) [address], [place], [address], 12/31/2024 13:41:41 12/31/19 25 12/30/2024 CBC W/DIF F MCH 28.0 pg 27.0-3 4.0 Not Available [facility] (Lab) [address], [place], [address], 12/31/2024 13:41:41 12/31/19 25 12/30/2024 CBC W/DIF F MCHC 31.7 g/dL 32.0-3 5.5 low Not Available [facility] (Lab) [address] [facility], [place], [address], 12/31/2024 13:41:41 12/31/19 25 12/30/2024 CBC W/DIF F RDW 13.8 % 11.0-1 5.0 Not Available [facility] (Lab) [address] [facility], [place], [address], 12/31/2024 13:41:41 12/31/19 25 12/30/2024 CBC W/DIF F plt 209 10'3/ uL 150-40 0 Not Available [facility] (Lab) [address] [facility], [place], [address], 12/31/2024 13:41:41 12/31/19 25 12/30/2024 CBC W/DIF F MPV 10.3 fL 8.8-12 .1 Not Available [facility] (Lab) [address] [facility], [place], [address], 12/31/2024 13:41:41 12/31/19 25 12/30/2024 CBC W/DIF F NRBC's 0.0 % 0.0 Not Available [facility] (Lab) [address] [facility], [place], [address], 12/31/2024 13:41:41 12/31/19 25 12/30/2024 CBC W/DIF F absolute NRBCs 0.0 10'3/ uL no refere nce range establ ished Not Available [facility] (Lab) [address] [facility], [place], [address], 12/31/2024 13:41:41 12/31/19 25 12/30/2024 CBC W/DIF F neutrophils 69.4 % 34.0-7 3.0 Not Available [facility] (Lab) [address] [facility], [place], [address], 12/31/2024 13:41:41 12/31/19 25 12/30/2024 CBC W/DIF F lymphocytes 24.5 % 15.0-5 0.0 Not Available [facility] (Lab) [address] [facility], [place], [address], 12/31/2024 13:41:41 12/31/19 25 12/30/2024 CBC W/DIF F monocytes 4.5 % 1.0-15 .0 Not Available [facility] (Lab) [address] [facility], [place], [address], 12/31/2024 13:41:41 12/31/19 25 12/30/2024 CBC W/DIF F eosinophils 0.6 % 0.0-8. 0 Not Available [facility] (Lab) [address] [facility], [place], [address], 12/31/2024 13:41:41 12/31/19 25 12/30/2024 CBC W/DIF F basophils 0.4 % 0.0-2. 0 Not Available [facility] (Lab) [address] [facility], [place], [address], 12/31/2024 13:41:41 12/31/19 25 12/30/2024 CBC W/DIF [...] separ ately if prese nt. Not Available [facility] (Lab) [address] [facility], [place], [address], 12/31/2024 13:41:41 12/31/19 25 12/30/2024 CBC W/DIF F absolute neutrophils 5.9 10'3/ uL 1.5-8. 0 Not Available [facility] (Lab) [address] [facility], [place], [address], 12/31/2024 13:41:41 12/31/19 25 12/30/2024 CBC W/DIF F absolute lymphocytes 2.1 10'3/ uL 1.0-4. 0 Not Available [facility] (Lab) [address] [facility], [place], [address], 12/31/2024 13:41:41 12/31/19 25 12/30/2024 CBC W/DIF F absolute monocytes 0.4 10'3/ uL 0.2-1. 0 Not Available [facility] (Lab) [address] [facility], [place], [address], 12/31/2024 13:41:41 12/31/19 25 12/30/2024 CBC W/DIF F absolute eosinophils 0.1 10'3/ uL 0.0-0. 6 Not Available [facility] (Lab) [address] [facility], [place], [address], 12/31/2024 13:41:41 12/31/19 25 12/30/2024 CBC W/DIF F absolute basophils 0.0 10'3/ uL 0.0-0. 3 Not Available [facility] (Lab) [address] [facility], [place], [address], 12/31/2024 13:41:41 12/31/19 25 12/30/2024 CBC W/DIF F absolute immature granulocytes 0.1 10'3/ uL 0.00-0 .10 Refer ence range s for nonbi nary/ inter sex or unspe cifie d gende r patie nts have not been estab lishe d. Pleas e refer to the consueloo wing table for range s estab lishe d for cisge nder patie nts and evalu ate in the clini figueroa sarahi xt of the indiv idual patie nt: https :[email or web address] book. nm.or g/gen derx Not Available [facility] (Lab) [address], [place], [address], 12/31/2024 13:41:41 12/31/19 25 12/30/2024 GTT - GESTA ARSH L, 3 HOUR, ACOG glucose, fasting acog 73 mg/dL 70-94 Not Available [facility] (Lab) [address] [facility], [place], [address], 12/31/2024 13:41:42 12/31/19 25 12/30/2024 GTT - GESTA ARSH L, 3 HOUR, ACOG glucose, 1 hour acog 166 mg/dL 70-179 Not Available [facility] (Lab) [address] [facility], [place], [address], 12/31/2024 13:41:42 12/31/19 25 12/30/2024 GTT - GESTA ARSH L, 3 HOUR, ACOG glucose, 2 hour acog 167 mg/dL 70-154 high Not Available [facility] (Lab) [address] [facility], [place], [address], 12/31/2024 13:41:42 12/31/19 25 12/30/2024 GTT - GESTA ARSH L, 3 HOUR, ACOG glucose, 3 hour acog 137 mg/dL 70-139 Not Available [facility] (Lab) [address] [facility], [place], [address], 12/31/2024 13:41:42 12/31/19 25 12/30/2024 CMP(C OMPRE HENSI VE METAB OLIC PANEL ) sodium 137 mmol/ L 133-14 6 Not Available [facility] (Lab) [address] [place], [address], 12/31/2024 13:41:42 12/31/19 25 12/30/2024 CMP(C OMPRE HENSI VE METAB OLIC PANEL ) potassium 4.0 mmol/ L 3.5-5. 1 Not Available [facility] (Lab) [address] [place], [address], 12/31/2024 13:41:42 12/31/19 25 12/30/2024 CMP(C OMPRE HENSI VE METAB OLIC PANEL ) chloride 103 mmol/ L 98-107 Not Available [facility] (Lab) [address] [facility], [place], [address], 12/31/2024 13:41:42 12/31/19 25 12/30/2024 CMP(C OMPRE HENSI VE METAB OLIC PANEL ) carbon dioxide 24 mmol/ L 21-31 Not Available [facility] (Lab) [address] [facility], [place], [address], 12/31/2024 13:41:42 12/31/19 25 12/30/2024 CMP(C OMPRE HENSI VE METAB OLIC PANEL ) anion gap 10 mmol/ L 4-13 Not Available [facility] (Lab) [address] [facility], [place], [address], 12/31/2024 13:41:42 12/31/19 25 12/30/2024 CMP(C OMPRE HENSI VE METAB OLIC PANEL ) blood urea nitrogen 8 mg/dL 7-25 Not Available [facility] (Lab) [address] [facility], [place], [address], 12/31/2024 13:41:42 12/31/19 25 12/30/2024 CMP(C OMPRE HENSI VE METAB OLIC PANEL ) creatinine 0.39 mg/dL 0.60-1 .30 low Not Available [facility] (Lab) [address] [facility], [place], [address], 12/31/2024 13:41:42 12/31/19 25 12/30/2024 CMP(C OMPRE HENSI VE METAB OLIC PANEL ) egfrcr (CKD-epi 2020) >90 mL/mi n/1.7 3_m2 >=60 Not Available [facility] (Lab) [address] [facility], [place], [address], 12/31/2024 13:41:42 12/31/19 25 12/30/2024 CMP(C OMPRE HENSI VE METAB OLIC PANEL ) calcium 8.7 mg/dL 8.3-10 .5 Not Available [facility] (Lab) [address] [facility], [place], [address], 12/31/2024 13:41:42 12/31/19 25 12/30/2024 CMP(C OMPRE HENSI VE METAB OLIC PANEL ) glucose 173 mg/dL 70-100 high Not Available [facility] (Lab) [address] [facility], [place], [address], 12/31/2024 13:41:42 12/31/19 25 12/30/2024 CMP(C OMPRE HENSI VE METAB OLIC PANEL ) protein, total 6.4 g/dL 6.4-8. 3 Not Available [facility] (Lab) [address] [facility], [place], [address], 12/31/2024 13:41:42 12/31/19 25 12/30/2024 CMP(C OMPRE HENSI VE METAB OLIC PANEL ) albumin 3.5 g/dL 3.5-5. 0 Not Available [facility] (Lab) [address] [facility], [place], [address], 12/31/2024 13:41:42 12/31/19 25 12/30/2024 CMP(C OMPRE HENSI VE METAB OLIC PANEL ) ALT 18 units /L 9-43 Not Available [facility] (Lab) [address] [facility], [place], [address], 12/31/2024 13:41:42 12/31/19 25 12/30/2024 CMP(C OMPRE HENSI VE METAB OLIC PANEL ) alkaline phosphatase 96 units /L 34-104 Not Available [facility] (Lab) [address] [facility], [place], [address], 12/31/2024 13:41:42 12/31/19 25 12/30/2024 CMP(C OMPRE HENSI VE METAB OLIC PANEL ) AST 18 units /L 13-39 Not Available [facility] (Lab) [address], [place], [address], 12/31/2024 13:41:42 12/31/19 25 12/30/2024 CMP(C OMPRE HENSI VE METAB OLIC PANEL ) bilirubin, total 0.5 mg/dL 0.2-1. 2 Not Available [facility] (Lab) [address], [place], [address], 12/31/2024 13:41:42 12/31/19 25 12/30/2024 MIRLANDE TIN / IRON / TRANS MIRLANDE N / TIBC iron 123 ug/dL 40-170 Not Available [facility] (Lab) [address] [facility], [place], [address], 12/31/2024 13:41:43 12/31/19 25 12/30/2024 MIRLANDE TIN / IRON / TRANS MIRLANDE N / TIBC transferrin 367 mg/dL 200-36 0 high Not Available [facility] (Lab) [address] [facility], [place], [address], 12/31/2024 13:41:43 12/31/19 25 12/30/2024 MIRLANDE TIN / IRON / TRANS MIRLANDE N / TIBC ferritin 23.6 NG/mL 8.0-25 2.0 Not Available [facility] (Lab) [address] [facility], [place], [address], 12/31/2024 13:41:43 12/31/19 25 12/30/2024 MIRLANDE TIN / IRON / TRANS MIRLANDE N / TIBC TIBC 514 ug/dL 250-45 0 high Not Available [facility] (Lab) [address], [place], [address], 12/31/2024 13:41:43 12/31/19 25 12/30/2024 MIRLANDE TIN / IRON / TRANS MIRLANDE N / TIBC iron saturation 24 % 20-55 Not Available [facility] (Lab) [address] [facility], [place], [address], 12/31/2024 13:41:43 12/31/19 25 12/30/2024 BILE ACIDS , TOTAL bile acids, total 3 umol/ L 0-10 Test Perfo rmed by: Jaskaran Neville [facility] [address] [place] [address] Not Available [facility] (Lab) [address], [place], [address], 12/31/2024 13:41:43 08/26/19 25 08/25/2024 US, obste tric, nucha l trans lucen cy No observ ation record ed. [email or web address] [place] [address], [place], [address], 08/25/2024 15:03:01 08/26/19 25 08/25/2024 US, obste tric, nucha l trans lucen cy No observ ation record ed. [email or web address] T[address], [place], [address], 08/26/2024 13:31:04 10/21/19 25 10/20/2024 US, obste tric, 2nd or 3rd trime ster No observ ation record ed. [email or web address] [address], [place], [address], 10/20/2024 15:07:51 10/21/19 25 10/20/2024 US, obste tric, 2nd or 3rd trime ster No observ ation record ed. [email or web address] [address], [place], [address], 12/29/2024 17:15:22 11/18/19 25 11/17/2024 US, obste tric, limit ed No observ ation record ed. [email or web address] [place] [address], [place], [address], 11/17/2024 15:58:58 11/18/19 25 11/17/2024 US, obste tric, limit ed No observ ation record ed. [email or web address] [address], [place], [address], 12/29/2024 17:09:12 01/13/20 25 01/12/2025 US, obste tric, follo w-up No observ ation record ed. [email or web address] [place] [address], [place], [address], 01/12/2025 12:15:18 01/13/20 25 01/12/2025 US, obste tric, follo w-up No observ ation record ed. NIRAV [facility] [address] [facility] [address], [place], [address], 02/15/2025 10:24:47 Result Notes None recorded. Problems Name Problem SNOMED Code Status Onset Date Resolution Date Notes Provider Name and Address Organization Details Recorded Time 75166435 Active 2024 Hilaria schmidt [facility] 12:41:52 Deliverie s by 256722875 Active 2024 TO REPEAT C/S, would like 03/03 SHAWN BACON MD [address], [place], [address], [facility] 12:31:36 Past history of placenta previa 967436866 Active 2024 Jacob Sanders MD [address], [place], [address], [facility] 12:49:56 Bacteriur ia 45342993 Active 2024 Hilaria schmidt, [facility] 13:18:44 Bacteriur ia 61909859 Active 2024 Hilaria schmidt, [facility] 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 12:43:49 Problem Notes None recorded. Procedures Surgical History Date Name Laterality Status Provider Name and Address Organization Details Recorded Time Date of Last Pap Smear completed Dia Rocha [facility] 12/29/2024 17:18:43 section completed Hilaria Kessler [facility] 01/21/2023 12:22:47 Imaging Results None recorded. [...] Available Not Available Vitals Date Recorded Body height Body mass index (BMI) Body weight Systolic And Diastolic Provider Name and Address Organization Details Last Updated DateTime 01/27/2025 144.78 cm 38.5 kg/m2 33596.44 g 118/69 mm[Hg] Dia Rocha [facility] 01/27/2025 16:35:03 Social History Question Answer Notes LastModified by Organizat ion Details LastModified Time Tobacco Smoking Status Never Smoker Hilaria [facility] 01/21/2023 12:22:38 If You Are , [...] ICD10 Code Diagnosis IMO Codes Diagnosis Note [id number] SHAWN BACON MD [place] [address] [address] 12/29/2024 17:08:45 01/01/2025 08:55:23 Itching of skin 381045311 L29.89 [id number] Deliveries by [id number] [id number] - desires [facility]CS Gestation period, 30 weeks 84763033 Z3A.30 [id number] SHAWN BACON MD [place] [address] [address] 01/12/2025 11:06:56 01/12/2025 12:11:01 Placenta circumvallata 8340316 O43.113 Z3A.32 [id number] [id number] SHAWN BACON MD [place] [address] [address] 01/12/2025 11:07:09 01/12/2025 12:46:52 Deliveries by [id number] [id number] - desires RCS Gestation period, 32 weeks 7670341 Z3A.32 [id number] SHAWN BACON MD [place] [address] [address] 01/27/2025 16:23:34 01/27/2025 17:02:24 Bacteriuria 89767965 O99.820 [id number] Deliveries by [id number] O82 [id number] - desires [facility] Health Concerns Section Related Observation LastModified by Organization Detai ls LastModified Time None Recorded Concern Status LastModified by Organization Details LastModified Time None Recorded Payers Encounter Date Sequence Insurance Name Policy Number Policy Guillen Covered Member ID Guillen Member ID Guarantor Name 01/27/2025 1 [facility] [id number] Nepmary C Evans [id number] Nepmary Evans 01/27/2025 2 [place] [id number] Nepmary Evans [id number] Nepmary Evans Notes Date Note Type Note Provider Name and Address Organization Details Recorded Time 01/27/2025 text/html Generic HPI TemplateReported by Patient SHAWN BACON MD [address], [place], [address], [facility] 01/27/2025 17:01:00 OBGyn Episode Ob Episode Information Episode Created Date Number of Fetuses Patient Bloodtype Patient rh Status Prepregnancy Weight lbs Domestic Partner Domestic Partner Phone Father Name Bartender Manager Status 08/26/19 25 1 O Positive [address] Paolo s OPEN Fetus Data First Name Last Name Admitted to NICU Weight (g) Sex Living Outcome Pediatric Complications Fetus ID Race Codes Race Delivery Type [id number] Problems Problem Notes Problem Name Start Date End Date Resolution Snomed Code Not e Bacteriuria 09/04/2024 11973738 Genetic disorder carrier 10/20/2024 [id number] + 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; needs partner testing prior to next Past history of placenta previa 08/25/2024 [id number] Deliveries by 08/25/2024 [id number] TO REPEAT C/S, would like 03/03 [...] Weight in lbs Pre/Post Dialysis Refused Weight 163.753375650339 BP Diastolic BP Location Tested BP Systolic [...] Weight in lbs Pre/Post Dialysis Refused Weight 166.963002466499 BP Diastolic BP Location Tested BP Systolic [...] Weight in lbs Pre/Post Dialysis Refused Weight 168.656854290794 BP Diastolic BP Location Tested BP Systolic [...] Weight in lbs Pre/Post Dialysis Refused Weight 172.454877351805 BP Diastolic BP Location Tested BP Systolic [...] Type Weight in lbs Pre/Post Dialysis Refused 178.172941821156 BP Diastolic BP Location Tested BP Systolic [...] Weight in lbs Pre/Post Dialysis Refused Weight 178.062400576845 BP Diastolic BP Location Tested BP Systolic [...] Type Weight in lbs Pre/Post Dialysis Refused 177.652785375094 BP Diastolic BP Location Tested BP Systolic [...] Weight in lbs Pre/Post Dialysis Refused Weight 178.826819070410 BP Diastolic BP Location Tested BP Systolic BP Type 69 L arm 118 sitting Fetus Heart Rate Present Fetus Movement A Yes Comments Good movement. No cram ping or bleeding. Discussed day of c section. Patient would like to start leave at 36 weeks due to very physical job. Will send [facility] paperwork to the office. Received tdap, RSV and flu vaccines. Preadmission scheduled. RTC 2 weeks. Flowsheet Date 02/09/2025 Cuevas Score Blood Edema Fundus Height Fundus Units Glucose Ketones Leukocytes Nitrite Labor Signs Protein Cervic Dilation Cervic Effacement Cervic Station Type Weight in lbs Pre/Post Dialysis Refused Weight 183.032939986372 BP Diastolic BP Location Tested BP Systolic BP Type 68 L arm 111 sitting Fetus Heart Rate Present A 135 Fetus Movement A Yes Comments Baby active. No issues. No c ramping or bleeding. GBS collected. c section scheduled. RTC 1 week Flowsheet Date 02/16/2025 Cuevas Score Blood Edema Fundus Height Fundus Units Glucose Ketones Leukocytes Nitrite Labor Signs Protein Cervic Dilation Cervic Effacement Cervic Station Type Weight in lbs Pre/Post Dialysis Refused Weight 182.631474781691 BP Diastolic BP Location Tested BP Systolic BP Type 79 L arm 122 sitting Fetus Heart Rate Present A 150 Fetus Movement A Yes Comments Doing well, reports lower pe lvic pain and contractions at night. Good movement. No cramping or bleeding. GBS positive. SVE closed. RTC 1 week. Flowsheet Date 02/24/2025 Cuevas Score Blood Edema Fundus Height Fundus Units Glucose Ketones Leukocytes Nitrite Labor Signs Protein Cervic Dilation Cervic Effacement Cervic Station Type Weight in lbs Pre/Post Dialysis Refused 183.842874687777 BP Diastolic BP Location Tested BP Systolic BP Type 74 L arm 114 sitting Fetus Heart Rate Present A 155 Fetus Movement A Yes Comments Doing well, good movem ent. No cramping or bleeding. Ready for c section next week. Having new hemorrhoids, discussed OTC treatments. Menstrual History Last Menstrual Date Menses Monthly [...]
--- OUTSIDE RECORDS SUMMARY | 2025-03-03 00:35 | XMS_ITS | Continuity of Care Document ---
Author Organization [facility] [place] [place] Address [address] [place] [address] Assessment No assessment recorded. Plan of Treatment Reminders Order Date Submit Date Provider Last Modified By Organization Details Last Modified Time Details Appointments SURG CSection 2024 07:30A Conchis BACNO MD Not available Not available Not available [...] [facility] [address], [place], [address], 09/28/2024 23:42:26 09/29/19 25 09/28/2024 [UNIT Y] ANEUP LOIDY NIPT 22Q11.2 microdeletio n LOW RISK <1 in 10,000 normal Not Available [facility] [address], [place], [address], 09/28/2024 23:42:26 09/29/19 25 09/28/2024 [UNIT Y] ANEUP LOIDY NIPT sex chromosome aneuploidy NOT DETECT ED normal Not Available [facility] [address], [place], [address], 09/28/2024 23:42:26 09/29/19 25 09/28/2024 [UNIT Y] ANEUP LOIDY NIPT monosomy X LOW RISK <1 in 10,000 normal Not Available [facility] [address], [place], [address], 09/28/2024 23:42:26 09/29/19 25 09/28/2024 [UNIT Y] ANEUP LOIDY NIPT trisomy 13 LOW RISK <1 in 10,000 normal Not Available [facility] [address], [place], [address], 09/28/2024 23:42:26 09/29/19 25 09/28/2024 [UNIT Y] ANEUP LOIDY NIPT trisomy 18 LOW RISK <1 in 10,000 normal Not Available [facility] [address], [place], [address], 09/28/2024 23:42:26 09/29/19 25 09/28/2024 [UNIT Y] ANEUP LOIDY NIPT trisomy 21 LOW RISK <1 in 10,000 normal Not Available [facility] [address], [place], [address], 09/28/2024 23:42:26 09/29/19 25 09/28/2024 [UNIT Y] ANEUP LOIDY NIPT sex MALE normal Not Available [facility] [address], [place], [address], 09/28/2024 23:42:26 09/29/19 25 09/28/2024 [UNIT Y] ANEUP LOIDY NIPT gestation SINGLE TON normal Not Available [facility] [address], [place], [address], 09/28/2024 23:42:26 09/29/19 25 09/28/2024 [UNIT Y] ANEUP LOIDY NIPT for detailed report, see pdf See PDF normal Not Available [facility] [address], [place], [address], 09/28/2024 23:42:26 10/08/19 25 10/07/2024 [UNIT Y] CHARLEEN Mcrae fraction 5.7% normal Not Available [facility] [address], [place], [address], 10/07/2024 00:49:52 10/08/19 25 10/07/2024 [UNIT Y] CHARLEEN CATHIE TYSON N alpha-thalas semia nipt result LOW RISK 1 in 2,300 ( patern al ethnic ity); 1 in 14,000 (Gener al popula tion) normal Not Available [facility] [address], [place], [address], 10/07/2024 00:49:52 10/08/19 25 10/07/2024 [UNIT Y] CHARLEEN TYSON N spinal muscular atrophy nipt result LOW RISK 1 in 4000 normal Not Available [facility] [address], [place], [address], 10/07/2024 00:49:52 10/08/19 25 10/07/2024 [UNIT Y] CHARLEEN Mcrae sickle cell disease/beta -thalassemia /hemoglobino pathies carrier screen NEGATI VE normal Not Available [facility] [address], [place], [address], 10/07/2024 00:49:52 10/08/19 25 10/07/2024 [UNIT Y] CHARLEEN TYSON N alpha-thalas semia carrier screen POSITI VE Silent tanvi r; aa/a- abnormal Not Available [facility] [address], [place], [address], 10/07/2024 00:49:52 10/08/19 25 10/07/2024 [UNIT Y] CHARLEEN TYSON N cystic fibrosis carrier screen NEGATI VE normal Not Available [facility] [address], [place], [address], 10/07/2024 00:49:52 10/08/19 25 10/07/2024 [UNIT Y] CHARLEEN Mcrae spinal muscular atrophy carrier screen POSITI VE 1 SMN1 copy abnormal Not Available [facility] [address], [place], [address], 10/07/2024 00:49:52 10/08/19 25 10/07/2024 [UNIT Y] CHARLEEN Mcrae for detailed report, see pdf See PDF normal Not Available [facility] [address], [place], [address], 10/07/2024 00:49:52 08/26/19 25 08/25/2024 CBC W/DIF F WBC 8.4 10'3/ uL 3.5-10 .5 Not Available [facility] (Lab) [address], [place], [address], 08/26/2024 12:03:47 08/26/19 25 08/25/2024 CBC W/DIF F RBC 4.46 10'6/ uL (based on docume nted legal sex) 3.80-5 .20 Not Available [facility] (Lab) [address] [place], [address], 08/26/2024 12:03:47 08/26/19 25 08/25/2024 CBC W/DIF F HGB 12.3 g/dL (based on docume nted legal sex) 11.6-1 5.4 Not Available [facility] (Lab) [address] [place], [address], 08/26/2024 12:03:47 08/26/19 25 08/25/2024 CBC W/DIF F HCT 37.8 % (based on docume nted legal sex) 34.0-4 5.0 Not Available [facility] (Lab) [address], [place], [address], 08/26/2024 12:03:47 08/26/19 25 08/25/2024 CBC W/DIF F MCV 84.8 fL 80.0-9 9.0 Not Available [facility] (Lab) [address], [place], [address], 08/26/2024 12:03:47 08/26/19 25 08/25/2024 CBC W/DIF F MCH 27.6 pg 27.0-3 4.0 Not Available [facility] (Lab) [address], [place], [address], 08/26/2024 12:03:47 08/26/19 25 08/25/2024 CBC W/DIF F MCHC 32.5 g/dL 32.0-3 5.5 Not Available [facility] (Lab) [address], [place], [address], 08/26/2024 12:03:47 08/26/19 25 08/25/2024 CBC W/DIF F RDW 13.2 % 11.0-1 5.0 Not Available [facility] (Lab) [address], [place], [address], 08/26/2024 12:03:47 08/26/19 25 08/25/2024 CBC W/DIF F plt 254 10'3/ uL 150-40 0 Not Available [facility] (Lab) [address], [place], [address], 08/26/2024 12:03:47 08/26/19 25 08/25/2024 CBC W/DIF F MPV 10.2 fL 8.8-12 .1 Not Available [facility] (Lab) [address], [place], [address], 08/26/2024 12:03:47 08/26/19 25 08/25/2024 CBC W/DIF F NRBC's 0.0 % 0.0 Not Available [facility] (Lab) [address], [place], [address], 08/26/2024 12:03:47 08/26/19 25 08/25/2024 CBC W/DIF F absolute NRBCs 0.0 10'3/ uL no refere nce range establ ished Not Available [facility] (Lab) [address] [facility], [place], [address], 08/26/2024 12:03:47 08/26/19 25 08/25/2024 CBC W/DIF F neutrophils 67.0 % 34.0-7 3.0 Not Available [facility] (Lab) [address] [facility], [place], [address], 08/26/2024 12:03:47 08/26/19 25 08/25/2024 CBC W/DIF F lymphocytes 24.5 % 15.0-5 0.0 Not Available [facility] (Lab) [address], [place], [address], 08/26/2024 12:03:47 08/26/19 25 08/25/2024 CBC W/DIF F monocytes 6.3 % 1.0-15 .0 Not Available [facility] (Lab) [address] [facility], [place], [address], 08/26/2024 12:03:47 08/26/19 25 08/25/2024 CBC W/DIF F eosinophils 1.2 % 0.0-8. 0 Not Available [facility] (Lab) [address] [place], [address], 08/26/2024 12:03:47 08/26/19 25 08/25/2024 CBC W/DIF F basophils 0.2 % 0.0-2. 0 Not Available [facility] (Lab) [address], [place], [address], 08/26/2024 12:03:47 08/26/19 25 08/25/2024 CBC W/DIF [...] separ ately if prese nt. Not Available [facility] (Lab) [address], [place], [address], 08/26/2024 12:03:47 08/26/19 25 08/25/2024 CBC W/DIF F absolute neutrophils 5.6 10'3/ uL 1.5-8. 0 Not Available [facility] (Lab) [address], [place], [address], 08/26/2024 12:03:47 08/26/19 25 08/25/2024 CBC W/DIF F absolute lymphocytes 2.1 10'3/ uL 1.0-4. 0 Not Available [facility] (Lab) [address], [place], [address], 08/26/2024 12:03:47 08/26/19 25 08/25/2024 CBC W/DIF F absolute monocytes 0.5 10'3/ uL 0.2-1. 0 Not Available [facility] (Lab) [address], [place], [address], 08/26/2024 12:03:47 08/26/19 25 08/25/2024 CBC W/DIF F absolute eosinophils 0.1 10'3/ uL 0.0-0. 6 Not Available [facility] (Lab) [address], [place], [address], 08/26/2024 12:03:47 08/26/19 25 08/25/2024 CBC W/DIF F absolute basophils 0.0 10'3/ uL 0.0-0. 3 Not Available [facility] (Lab) [address] [place], [address], 08/26/2024 12:03:47 08/26/19 25 08/25/2024 CBC W/DIF F absolute immature granulocytes 0.1 10'3/ uL 0.00-0 .10 Refer ence range s for nonbi nary/ inter sex or unspe cifie d gende r patie nts have not been estab lishe d. Pleas e [facility] for range s estab lishe d for cisge nder patie nts and evalu ate in the clini figueroa sarahi xt of the indiv idual patie nt: https :[email or web address] arciniega book. nm.or g/gen derx Not Available [facility] (Lab) [address], [place], [address], 08/26/2024 12:03:47 08/26/1908/25/2024 TYPE/ RH/SC REEN ABO/Rh type O POS Not Available [facility] (Lab) [address] [place], [address], 08/26/2024 12:03:48 08/26/19 25 08/25/2024 TYPE/ RH/SC REEN antibody screen NEG Not Available [facility] (Lab) [address], [place], [address], 08/26/2024 12:03:48 08/26/19 25 08/25/2024 TYPE/ RH/SC REEN exp date 2024 23:59 Not Available [facility] (Lab) [address] [place], [address], 08/26/2024 12:03:48 08/26/19 25 08/25/2024 HEPAT ITIS B SURFA CE ANTIG EN hepatitis B surface antigen Non-re active non-re active This assay was perfo rmed using [employer] ratio n reage nts and test kits. Value s obtai ellie with other assay metho ds or kits canno t be used inter smith eably . Not Available [facility] (Lab) [address], [place], [address], 08/26/2024 12:03:48 08/26/19 25 08/25/2024 HEPAT ITIS C ANTIB JAMEEL SCREE N, REFLE X TO CONFI RMATI ON hepatitis C antibody Non-re active non-re active Antib odies to HCV Not Detec lina, does not exclu de the possi bilit y of expos ure to HCV. Not Available [facility] (Lab) [address] [place], [address], 08/26/2024 12:03:49 08/26/19 25 08/25/2024 TSH, REFLE X FREE T4 TSH 1.44 uIU/m L 0.30-5 .33 Not Available [facility] (Lab) [address] [place], [address], 08/26/2024 12:03:49 08/26/19 25 08/25/2024 RUBEL LA IGG ANTIB JAMEEL, QUANT rubella antibodies, IgG Reacti ve reacti ve Not Available [facility] (Lab) [address] [place], [address], 08/26/2024 12:03:50 08/26/19 25 08/25/2024 RUBEL LA IGG ANTIB JAMEEL, QUANT rubella antibodies, IgG quant 242.9 IU/mL >=10 Non-r eacti ve (Non- Immun e) <10 IU/mL React veronica (Immu ne) > or = 10 IU/mL Not Available [facility] (Lab) [address] [place], [address], 08/26/2024 12:03:50 08/26/19 25 08/25/2024 HEMOG LOBIN [...] >8.0% Actio n sugge sted Not Available [facility] (Lab) [address] [facility], [place], [address], 08/26/2024 12:03:50 08/26/19 25 08/25/2024 RPR SCREE N, REFLE X TITER /CONF IRMAT ION RPR qualitative Nonrea ctive nonrea ctive Not Available [facility] (Lab) [address], [place], [address], 08/26/2024 12:03:51 08/26/19 25 08/25/2024 IMAGE GUIDE [...] as clini lala summers nted. Not Available [facility] (Lab) [address], [place], [address], 08/27/2024 04:01:28 08/26/19 25 08/25/2024 CULTU RE: URINE result report SEE RESULT S BELOW abnormal Test: Cultu re: Urine Speci men Sourc e: Urine Voide d Speci men Type: Urine Speci men Date: 1442 Resul t Date: 257 Resul t Statu s: Final resul t Abnor mal: Yes Resul ting Lab: [facility] [address] [facility] [address] Tel: CULTU RE ----- ----- ----- --- [...] lab withi n 5 days. Not Available [facility] (Lab) [address] , [place], [address], 08/27/2024 04:01:29 09/23/1909/22/2024 HIV 1/2 ANTIG EN/AN TIBOD Y, REFLE X CONFI RMATI ON HIV antigen/anti body Nonrea ctive nonrea ctive Phleb otomi [facility] this test on 08/25 . Do not charg e for venip unctu re. HIV-1 antig en and HIV-1 /HIV- 2 antib odies were not detec lina. No labor atory evide nce of HIV infec tion. Not Available [facility] (Lab) [address] , [place], [address], 09/23/2024 04:49:59 12/16/1912/15/2024 HEMOG LOBIN (HGB) HGB 11.8 g/dL (based on docume nted legal sex) 11.6-1 5.4 Not Available [facility] (Lab) [address], [place], [address], 12/16/2024 14:27:51 12/16/19 25 12/15/2024 HEMAT OCRIT (HCT) HCT 37.1 % (based on docume nted legal sex) 34.0-4 5.0 Not Available [facility] (Lab) [address], [place], [address], 12/16/2024 14:27:51 12/16/19 25 12/15/2024 GTT - GESTA ARSH L JAH N, ACOG OB glucose, 1 hour screen 173 mg/dL 70-135 high Not Available [facility] (Lab) [address], [place], [address], 12/16/2024 14:27:52 12/16/19 25 12/15/2024 HIV 1/2 ANTIG EN/AN TIBOD Y, REFLE X CONFI RMATI ON HIV antigen/anti body Nonrea ctive nonrea ctive HIV-1 antig en and HIV-1 /HIV- 2 antib odies were not detec lina. No labor atory evide nce of HIV infec tion. Not Available [facility] (Lab) [address], [place], [address], 12/16/2024 14:27:52 12/16/1912/15/2024 RPR SCREE N, REFLE X TITER /CONF IRMAT ION RPR qualitative Nonrea ctive nonrea ctive Not Available [facility] (Lab) [address], [place], [address], 12/16/2024 14:27:53 12/31/19 25 12/30/2024 CBC W/DIF F WBC 8.5 10'3/ uL 3.5-10 .5 Not Available [facility] (Lab) [address] , [place], [address], 12/31/2024 13:41:41 12/31/19 25 12/30/2024 CBC W/DIF F RBC 4.47 10'6/ uL (based on docume nted legal sex) 3.80-5 .20 Not Available [facility] (Lab) [address], [place], [address], 12/31/2024 13:41:41 12/31/19 25 12/30/2024 CBC W/DIF F HGB 12.5 g/dL (based on docume nted legal sex) 11.6-1 5.4 Not Available [facility] (Lab) [address], [place], [address], 12/31/2024 13:41:41 12/31/19 25 12/30/2024 CBC W/DIF F HCT 39.4 % (based on docume nted legal sex) 34.0-4 5.0 Not Available [facility] (Lab) [address], [place], [address], 12/31/2024 13:41:41 12/31/19 25 12/30/2024 CBC W/DIF F MCV 88.1 fL 80.0-9 9.0 Not Available [facility] (Lab) [address], [place], [address], 12/31/2024 13:41:41 12/31/19 25 12/30/2024 CBC W/DIF F MCH 28.0 pg 27.0-3 4.0 Not Available [facility] (Lab) [address], [place], [address], 12/31/2024 13:41:41 12/31/19 25 12/30/2024 CBC W/DIF F MCHC 31.7 g/dL 32.0-3 5.5 low Not Available [facility] (Lab) [address] [facility] [address], [place], [address], 12/31/2024 13:41:41 12/31/19 25 12/30/2024 CBC W/DIF F RDW 13.8 % 11.0-1 5.0 Not Available [facility] (Lab) [address], [place], [address], 12/31/2024 13:41:41 12/31/19 25 12/30/2024 CBC W/DIF F plt 209 10'3/ uL 150-40 0 Not Available [facility] (Lab) [address], [place], [address], 12/31/2024 13:41:41 12/31/19 25 12/30/2024 CBC W/DIF F MPV 10.3 fL 8.8-12 .1 Not Available [facility] (Lab) [address], [place], [address], 12/31/2024 13:41:41 12/31/19 25 12/30/2024 CBC W/DIF F NRBC's 0.0 % 0.0 Not Available [facility] (Lab) [address], [place], [address], 12/31/2024 13:41:41 12/31/19 25 12/30/2024 CBC W/DIF F absolute NRBCs 0.0 10'3/ uL no refere nce range establ ished Not Available [facility] (Lab) [address], [place], [address], 12/31/2024 13:41:41 12/31/19 25 12/30/2024 CBC W/DIF F neutrophils 69.4 % 34.0-7 3.0 Not Available [facility] (Lab) [address], [place], [address], 12/31/2024 13:41:41 12/31/19 25 12/30/2024 CBC W/DIF F lymphocytes 24.5 % 15.0-5 0.0 Not Available [facility] (Lab) [address], [place], [address], 12/31/2024 13:41:41 12/31/19 25 12/30/2024 CBC W/DIF F monocytes 4.5 % 1.0-15 .0 Not Available [facility] (Lab) [address], [place], [address], 12/31/2024 13:41:41 12/31/19 25 12/30/2024 CBC W/DIF F eosinophils 0.6 % 0.0-8. 0 Not Available [facility] (Lab) [address], [place], [address], 12/31/2024 13:41:41 12/31/19 25 12/30/2024 CBC W/DIF F basophils 0.4 % 0.0-2. 0 Not Available [facility] (Lab) [address], [place], [address], 12/31/2024 13:41:41 12/31/19 25 12/30/2024 CBC W/DIF [...] separ ately if prese nt. Not Available [facility] (Lab) [address], [place], [address], 12/31/2024 13:41:41 12/31/19 25 12/30/2024 CBC W/DIF F absolute neutrophils 5.9 10'3/ uL 1.5-8. 0 Not Available [facility] (Lab) [address], [place], [address], 12/31/2024 13:41:41 12/31/19 25 12/30/2024 CBC W/DIF F absolute lymphocytes 2.1 10'3/ uL 1.0-4. 0 Not Available [facility] (Lab) [address], [place], [address], 12/31/2024 13:41:41 12/31/19 25 12/30/2024 CBC W/DIF F absolute monocytes 0.4 10'3/ uL 0.2-1. 0 Not Available [facility] (Lab) [address], [place], [address], 12/31/2024 13:41:41 12/31/19 25 12/30/2024 CBC W/DIF F absolute eosinophils 0.1 10'3/ uL 0.0-0. 6 Not Available [facility] (Lab) [address], [place], [address], 12/31/2024 13:41:41 12/31/19 25 12/30/2024 CBC W/DIF F absolute basophils 0.0 10'3/ uL 0.0-0. 3 Not Available [facility] (Lab) [address], [place], [address], 12/31/2024 13:41:41 12/31/19 25 12/30/2024 CBC W/DIF [...] arciniega book. nm.or g/gen derx Not Available [facility] (Lab) [address], [place], [address], 12/31/2024 13:41:41 12/31/19 25 12/30/2024 GTT - GESTA ARSH L, 3 HOUR, ACOG glucose, fasting acog 73 mg/dL 70-[address] [facility] (Lab) [address], [place], [address], 12/31/2024 13:41:42 12/31/19 25 12/30/2024 GTT - GESTA ARSH L, 3 HOUR, ACOG glucose, 1 hour acog 166 mg/dL 70-179 Not Available [facility] (Lab) [address], [place], [address], 12/31/2024 13:41:42 12/31/19 25 12/30/2024 GTT - GESTA ARSH L, 3 HOUR, ACOG glucose, 2 hour acog 167 mg/dL 70-154 high Not Available [facility] (Lab) [address], [place], [address], 12/31/2024 13:41:42 12/31/19 25 12/30/2024 GTT - GESTA ARSH L, 3 HOUR, ACOG glucose, 3 hour acog 137 mg/dL 70-139 Not Available [facility] (Lab) [address], [place], [address], 12/31/2024 13:41:42 12/31/19 25 12/30/2024 CMP(C OMPRE HENSI VE METAB OLIC PANEL ) sodium 137 mmol/ L 133-14 6 Not Available [facility] (Lab) [address] [place], [address], 12/31/2024 13:41:42 12/31/19 25 12/30/2024 CMP(C OMPRE HENSI VE METAB OLIC PANEL ) potassium 4.0 mmol/ L 3.5-5. 1 Not Available [facility] (Lab) [address] [place], [address], 12/31/2024 13:41:42 12/31/19 25 12/30/2024 CMP(C OMPRE HENSI VE METAB OLIC PANEL ) chloride 103 mmol/ L 98-107 Not Available [facility] (Lab) [address], [place], [address], 12/31/2024 13:41:42 12/31/19 25 12/30/2024 CMP(C OMPRE HENSI VE METAB OLIC PANEL ) carbon dioxide 24 mmol/ L 21-31 Not Available [facility] (Lab) [address], [place], [address], 12/31/2024 13:41:42 12/31/19 25 12/30/2024 CMP(C OMPRE HENSI VE METAB OLIC PANEL ) anion gap 10 mmol/ L 4-13 Not Available [facility] (Lab) [address], [place], [address], 12/31/2024 13:41:42 12/31/19 25 12/30/2024 CMP(C OMPRE HENSI VE METAB OLIC PANEL ) blood urea nitrogen 8 mg/dL 7-25 Not Available [facility] (Lab) [address], [place], [address], 12/31/2024 13:41:42 12/31/19 25 12/30/2024 CMP(C OMPRE HENSI VE METAB OLIC PANEL ) creatinine 0.39 mg/dL 0.60-1 .30 low Not Available [facility] (Lab) [address], [place], [address], 12/31/2024 13:41:42 12/31/19 25 12/30/2024 CMP(C OMPRE HENSI VE METAB OLIC PANEL ) egfrcr (CKD-epi 2020) >90 mL/mi n/1.7 3_m2 >=60 Not Available [facility] (Lab) [address], [place], [address], 12/31/2024 13:41:42 12/31/19 25 12/30/2024 CMP(C OMPRE HENSI VE METAB OLIC PANEL ) calcium 8.7 mg/dL 8.3-10 .5 Not Available [facility] (Lab) [address], [place], [address], 12/31/2024 13:41:42 12/31/19 25 12/30/2024 CMP(C OMPRE HENSI VE METAB OLIC PANEL ) glucose 173 mg/dL 70-100 high Not Available [facility] (Lab) [address], [place], [address], 12/31/2024 13:41:42 12/31/19 25 12/30/2024 CMP(C OMPRE HENSI VE METAB OLIC PANEL ) protein, total 6.4 g/dL 6.4-8. 3 Not Available [facility] (Lab) [address], [place], [address], 12/31/2024 13:41:42 12/31/19 25 12/30/2024 CMP(C OMPRE HENSI VE METAB OLIC PANEL ) albumin 3.5 g/dL 3.5-5. 0 Not Available [facility] (Lab) [address], [place], [address], 12/31/2024 13:41:42 12/31/19 25 12/30/2024 CMP(C OMPRE HENSI VE METAB OLIC PANEL ) ALT 18 units /L 9-43 Not Available [facility] (Lab) [address], [place], [address], 12/31/2024 13:41:42 12/31/19 25 12/30/2024 CMP(C OMPRE HENSI VE METAB OLIC PANEL ) alkaline phosphatase 96 units /L 34-104 Not Available [facility] (Lab) [address], [place], [address], 12/31/2024 13:41:42 12/31/19 25 12/30/2024 CMP(C OMPRE HENSI VE METAB OLIC PANEL ) AST 18 units /L 13-39 Not Available [facility] (Lab) [address], [place], [address], 12/31/2024 13:41:42 12/31/19 25 12/30/2024 CMP(C OMPRE HENSI VE METAB OLIC PANEL ) bilirubin, total 0.5 mg/dL 0.2-1. 2 Not Available [facility] (Lab) [address], [place], [address], 12/31/2024 13:41:42 12/31/19 25 12/30/2024 MIRLANDE TIN / IRON / TRANS MIRLANDE N / TIBC iron 123 ug/dL 40-170 Not Available [facility] (Lab) [address], [place], [address], 12/31/2024 13:41:43 12/31/19 25 12/30/2024 MIRLANDE TIN / IRON / TRANS MIRLANDE N / TIBC transferrin 367 mg/dL 200-36 0 high Not Available [facility] (Lab) [address], [place], [address], 12/31/2024 13:41:43 12/31/19 25 12/30/2024 MIRLANDE TIN / IRON / TRANS MIRLANDE N / TIBC ferritin 23.6 NG/mL 8.0-25 2.0 Not Available [facility] (Lab) [address], [place], [address], 12/31/2024 13:41:43 12/31/19 25 12/30/2024 MIRLANDE TIN / IRON / TRANS MIRLANDE N / TIBC TIBC 514 ug/dL 250-45 0 high Not Available [facility] (Lab) [address], [place], [address], 12/31/2024 13:41:43 12/31/19 25 12/30/2024 MIRLANDE TIN / IRON / TRANS MIRLANDE N / TIBC iron saturation 24 % 20-55 Not Available [facility] (Lab) [address], [place], [address], 12/31/2024 13:41:43 12/31/19 25 12/30/2024 BILE ACIDS , TOTAL bile acids, total 3 umol/ L 0-10 Test Perfo rmed by: Jaskaran rodriguez [facility] [address] [place] [address] Not Available [facility] (Lab) [address], [place], [address], 12/31/2024 13:41:43 02/10/20 25 02/09/2025 CULTU RE: GROUP B STREP SCREE N, REFLE X SUSCE PTIBI LITY result report SEE RESULT S BELOW abnormal Test: Cultu re: Group B Strep , Refle x Susce ptibi lity ([facility]/ [facility] ) Speci men Sourc e: Vagin a/Rec paxton Speci men Type: Vagin al/Re ctal Speci men Date: 02/09 1452 Resul t Date: 02/13 1510 Resul t Statu s: Final resul t Abnor mal: Yes Resul ting Lab: [facility] [address] [facility] [address] Tel: CULTU RE ----- ----- ----- --- Posit veronica for Strep tococ cus agala ctiae (Grou p B) (Abno rmal) Clind amyci n = resis tant, eryth romyc in = resis tant. Cefaz sejal may be used for intra partu m proph ylaxi s in penic illin -marnie rgic women at low risk, and Vanco mycin is recom torey d for women at high risk for anaph ylaxi s. Susce ptibi lity testi ng is not neces indu for these drugs . Not Available [facility] (Lab) [address], [place], [address], 02/13/2025 16:13:50 08/26/19 25 08/25/2024 US, obste tric, nucha l trans lucen cy No observ ation record ed. [email or web address] [place] [address], [place], [address], 08/25/2024 15:03:01 08/26/19 25 08/25/2024 US, obste tric, nucha l trans lucen cy No observ ation record ed. [email or web address] [address], [place], [address], 08/26/2024 13:31:04 10/21/19 25 10/20/2024 US, obste tric, 2nd or 3rd trime ster No observ ation record ed. [email or web address] [place] [address], [place], [address], 10/20/2024 15:07:51 10/21/19 25 10/20/2024 [place], obste tric, 2nd or 3rd trime ster No observ ation record ed. [email or web address] [address], [place], [address], 12/29/2024 17:15:22 11/18/19 25 11/17/2024 [place], obste tric, limit ed No observ ation record ed. [email or web address] [place] [address], [place], [address], 11/17/2024 15:58:58 11/18/19 25 11/17/2024 US, obste tric, limit ed No observ ation record ed. [email or web address] [address], [place], [address], 12/29/2024 17:09:12 01/13/20 25 01/12/2025 US, obste tric, follo w-up No observ ation record ed. [email or web address] [place] [address], [place], [address], 01/12/2025 12:15:18 01/13/20 25 01/12/2025 US, obste tric, follo w-up No observ ation record ed. NIRAV T[address], [place], [address], 02/15/2025 10:24:47 Result Notes None recorded. Problems Name Problem SNOMED Code Status Onset Date Resolution Date Notes Provider Name and Address Organization Details Recorded Time 99714977 Active [address] [facility] 12:41:52 Deliverie s by [id number] Active 2024 TO REPEAT C/S, would like 03/03 SHAWN BACON MD [address], [place], [address], [facility] 12:31:36 Past history of placenta previa 622495030 Active 2024 Jacob Sanders MD [address], [place], [address], [facility] 5 12:49:56 Bacteriur ia 44514997 Active 2024 Hilaria [facility] 5 13:18:44 Bacteriur ia 93802160 Active 2024 [facility] 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 12:43:49 Problem Notes None recorded. Procedures Surgical History Date Name Laterality Status Provider Name and Address Organization Details Recorded Time Date of Last Pap Smear completed Dia Rocha [facility] 12/29/2024 17:18:43 section completed Hilaria Kessler [facility] 01/21/2023 12:22:47 Imaging Results None recorded. [...] Not Avai lable Not Available Ismael Fe .5 (28) 1.5 mg-30 mcg (21)/75 mg (7) tablet TAKE 1 TABLET BY MOUTH ONCE DAILY NEEDS APPOINTME NT 07/28 completed Not Available Not Available Not Available Vitals Date Recorded Body weight Body mass index (BMI) Body height Systolic And Diastolic Provider Name and Address Organization Details Last Updated DateTime 02/24/2025 74284.403 71 g 39.6 kg/m2 144.78 cm 114/74 mm[Hg] Dia Rocha [facility] 02/24/2025 09:46:01 Social History Question Answer Notes LastModified by Organizat ion Details LastModified Time Tobacco Smoking Status Never Sm[facility] 01/21/2023 12:22:38 If You Are , [...] available 2024 12:07:04 Paternal Grandmother Diabetes mellitus [email or web address] Not available 2024 12:07:04 Medical History No [...] ICD10 Code Diagnosis IMO Codes Diagnosis Note [id number] SHAWN BACON MD [place] [address],[place] [address] 01/27/2025 16:23:34 01/27/2025 17:02:24 Bacteriuria 49395360 O99.820 [id number] Deliveries by [id number] [id number] - desires RCS [id number] SHAWN BACON MD [place] [address],[place] [address] 02/09/2025 15:07:38 02/09/2025 15:56:09 Gestation period, 36 weeks 32347367 Z3A.36 [id number] Deliveries by [id number] O82 [id number] - desires RCS [id number] SHAWN BACON MD [place] [address],[place] [address] 02/16/2025 14:49:42 02/16/2025 15:24:08 Deliveries by [id number] O82 [id number] - desires RCS Bacteriuria 71983438 O99 .820 [id number] Gestation period, 37 weeks 55430041 Z3A.37 [id number] - continue PNV [id number] SHAWN BACON MD [place] [address],[place] [address] 02/24/2025 09:38:49 02/24/2025 10:11:12 Deliveries by [id number] O82 [id number] - desires RCS Gestation period, 38 weeks 09750523 Z3A.38 [id number] Health Concerns Section Related Observation LastModified by Organization Detai ls LastModified Time None Recorded Concern Status LastModified by Organization Details LastModified Time None Recorded Payers Encounter Date Sequence Insurance Name Policy Number Policy Guillen Covered Member ID Guillen Member ID Guarantor Name 02/24/2025 1 [facility] [id number] Lesley Evans [id number] Lesley Evans 02/24/2025 2 [place] [id number] Lesley Evans [id number] Lesley Evans Notes Date Note Type Note Provider Name and Address Organization Details Recorded Time 02/24/2025 text/html Generic HPI TemplateReported by Patient SHAWN BACON MD [address], [place], [address], [facility] 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 Status 08/26/19 25 1 O Positive [address] s OPEN Fetus Data First Name Last Name Admitted to NICU Weight (g) Sex Living Outcome Pediatric Complications Fetus ID Race Codes Race Delivery Type [id number] Problems Problem Notes Problem Name Start Date End Date Resolution Snomed Code Not e Bacteriuria 09/04/2024 [id number] Genetic disorder carrier 10/20/2024 04135262 + 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; needs partner testing prior to next Past history of placenta previa 08/25/2024 [id number] Deliveries by 08/25/2024 [id number] TO REPEAT C/S, would like 03/03 [...] Weight in lbs Pre/Post Dialysis Refused Weight 163.997714551409 BP Diastolic BP Location Tested BP Systolic [...] Weight in lbs Pre/Post Dialysis Refused Weight 166.776697303008 BP Diastolic BP Location Tested BP Systolic [...] Weight in lbs Pre/Post Dialysis Refused Weight 168.866131182998 BP Diastolic BP Location Tested BP Systolic [...] Weight in lbs Pre/Post Dialysis Refused Weight 172.430738529217 BP Diastolic BP Location Tested BP Systolic [...] Type Weight in lbs Pre/Post Dialysis Refused 178.236938538164 BP Diastolic BP Location Tested BP Systolic [...] Weight in lbs Pre/Post Dialysis Refused Weight 178.768011195675 BP Diastolic BP Location Tested BP Systolic [...] Type Weight in lbs Pre/Post Dialysis Refused 177.291540180673 BP Diastolic BP Location Tested BP Systolic [...] Weight in lbs Pre/Post Dialysis Refused Weight 178.739902177147 BP Diastolic BP Location Tested BP Systolic BP Type 69 L arm 118 sitting Fetus Heart Rate Present Fetus Movement A Yes Comments Good movement. No cram ping or bleeding. Discussed day of c section. Patient would like to start leave at 36 weeks due to very physical job. Will send [facility] paperwork to the office. Received tdap, RSV and flu vaccines. Preadmission scheduled. RTC 2 weeks. Flowsheet Date 02/09/2025 Cuevas Score Blood Edema Fundus Height Fundus Units Glucose Ketones Leukocytes Nitrite Labor Signs Protein Cervic Dilation Cervic Effacement Cervic Station Type Weight in lbs Pre/Post Dialysis Refused Weight 183.643560335382 BP Diastolic BP Location Tested BP Systolic [...] Weight in lbs Pre/Post Dialysis Refused Weight 182.734567250855 BP Diastolic BP Location Tested BP Systolic [...] Type Weight in lbs Pre/Post Dialysis Refused 183.259469142662 BP Diastolic BP Location Tested BP Systolic [...]
--- OUTSIDE RECORDS SUMMARY | 2025-03-03 00:35 | XMS_ITS | Continuity of Care Document ---
Author Organization [facility] [place] Address [address] [place] [address] Assessment No assessment recorded. Plan of Treatment Reminders Order Date Submit Date Provider Last Modified By Organization Details Last Modified Time Details Appointments SURG CSection 2024 07:30A Conchis BACON MD Not available Not available Not available SURG POST OP 2024 11:00A Conchis BACON MD Not available Not available Not available Lab streptoco ccus group B, culture, unspecifi ed specimen 2024 025 [facility] (Lab), [address], [place], [address], 02/13/2025 16:13:51 Referral None recorded. Procedures None recorded. Surgeries None recorded. Imaging None recorded. Medication Orders None recorded. Patient TargetsNo targets recorded. Patient InstructionsNo instructions recorded. Reason for Referral None Reported. Results Created Date Observation Date Name Description Value Unit Range Abnormal Flag Note LastModifiedBy Organization Detail LastModifiedTime 09/29/1909/28/2024 [UNIT Y] ANEUP LOIDY NIPT fraction 4.6% normal Not Available [facility] [address], [place], [address], 09/28/2024 23:42:26 09/29/19 25 09/28/2024 [UNIT Y] ANEUP LOIDY NIPT 22Q11.2 microdeletio n LOW RISK <1 in 10,000 normal Not Available [facility] [address], [place], [address], 09/28/2024 23:42:26 09/29/19 25 09/28/2024 [UNIT Y] ANEUP LOIDY NIPT sex chromosome aneuploidy NOT DETECT ED normal Not Available [facility] [address], [place], [address], 09/28/2024 23:42:26 09/29/19 25 09/28/2024 [UNIT Y] ANEUP LOIDY NIPT monosomy X LOW RISK <1 in 10,000 normal Not Available [facility] [address], [place], [address], 09/28/2024 23:42:26 09/29/19 25 09/28/2024 [UNIT Y] ANEUP LOIDY NIPT trisomy 13 LOW RISK <1 in 10,000 normal Not Available [facility] [address], [place], [address], 09/28/2024 23:42:26 09/29/19 25 09/28/2024 [UNIT Y] ANEUP LOIDY NIPT trisomy 18 LOW RISK <1 in 10,000 normal Not Available [facility] [address], [place], [address], 09/28/2024 23:42:26 09/29/19 25 09/28/2024 [UNIT Y] ANEUP LOIDY NIPT trisomy 21 LOW RISK <1 in 10,000 normal Not Available [facility] [address], [place], [address], 09/28/2024 23:42:26 09/29/19 25 09/28/2024 [UNIT Y] ANEUP LOIDY NIPT sex MALE normal Not Available [facility] [address], [place], [address], 09/28/2024 23:42:26 09/29/19 25 09/28/2024 [UNIT Y] ANEUP LOIDY NIPT gestation SINGLE TON normal Not Available [facility] [address], [place], [address], 09/28/2024 23:42:26 09/29/19 25 09/28/2024 [UNIT Y] ANEUP LOIDY NIPT for detailed report, see pdf See PDF normal Not Available [facility] [address], [place], [address], 09/28/2024 23:42:26 10/08/19 25 10/07/2024 [UNIT Y] CHARLEEN CATHIE Mcrae fraction 5.7% normal Not Available [facility] [address], [place], [address], 10/07/2024 00:49:52 10/08/19 25 10/07/2024 [UNIT Y] CHARLEEN ER SCREE N alpha-thalas semia nipt result LOW RISK 1 in 2,300 ( patern al ethnic ity); 1 in 14,000 (Gener al popula tion) normal Not Available [facility] [address], [place], [address], 10/07/2024 00:49:52 10/08/19 25 10/07/2024 [UNIT Y] CHARLEEN CATHIE SCREE N spinal muscular atrophy nipt result LOW RISK 1 in 4000 normal Not Available [facility] [address], [place], [address], 10/07/2024 00:49:52 10/08/19 25 10/07/2024 [UNIT Y] CHARLEEN CATHIE SCREE N sickle cell disease/beta -thalassemia /hemoglobino pathies carrier screen NEGATI VE normal Not Available [facility] [address], [place], [address], 10/07/2024 00:49:52 10/08/19 25 10/07/2024 [UNIT Y] CHARLEEN CATHIE SCREE N alpha-thalas semia carrier screen POSITI VE Silent tanvi r; aa/a- abnormal Not Available [facility] [address], [place], [address], 10/07/2024 00:49:52 10/08/19 25 10/07/2024 [UNIT Y] CHARLEEN Mcrae cystic fibrosis carrier screen NEGATI VE normal Not Available [facility] [address], [place], [address], 10/07/2024 00:49:52 10/08/19 25 10/07/2024 [UNIT Y] CHARLEEN Mcrae spinal muscular atrophy carrier screen POSITI VE 1 SMN1 copy abnormal Not Available [facility] [address], [place], [address], 10/07/2024 00:49:52 10/08/19 25 10/07/2024 [UNIT Y] CHARLEEN Mcrae for detailed report, see pdf See PDF normal Not Available [facility] [address], [place], [address], 10/07/2024 00:49:52 08/26/19 25 08/25/2024 CBC W/DIF F WBC 8.4 10'3/ uL 3.5-10 .5 Not Available [facility] (Lab) [address], [place], [address], 08/26/2024 12:03:47 08/26/19 25 08/25/2024 CBC W/DIF F RBC 4.46 10'6/ uL (based on docume nted legal sex) 3.80-5 .20 Not Available [facility] (Lab) [address], [place], [address], 08/26/2024 12:03:47 08/26/19 25 08/25/2024 CBC W/DIF F HGB 12.3 g/dL (based on docume nted legal sex) 11.6-1 5.4 Not Available [facility] (Lab) [address] [place], [address], 08/26/2024 12:03:47 08/26/19 25 08/25/2024 CBC W/DIF F HCT 37.8 % (based on docume nted legal sex) 34.0-4 5.0 Not Available [facility] (Lab) [address], [place], [address], 08/26/2024 12:03:47 08/26/19 25 08/25/2024 CBC W/DIF F MCV 84.8 fL 80.0-9 9.0 Not Available [facility] (Lab) [address], [place], [address], 08/26/2024 12:03:47 08/26/19 25 08/25/2024 CBC W/DIF F MCH 27.6 pg 27.0-3 4.0 Not Available [facility] (Lab) [address], [place], [address], 08/26/2024 12:03:47 08/26/19 25 08/25/2024 CBC W/DIF F MCHC 32.5 g/dL 32.0-3 5.5 Not Available [facility] (Lab) [address], [place], [address], 08/26/2024 12:03:47 08/26/19 25 08/25/2024 CBC W/DIF F RDW 13.2 % 11.0-1 5.0 Not Available [facility] (Lab) [address], [place], [address], 08/26/2024 12:03:47 08/26/19 25 08/25/2024 CBC W/DIF F plt 254 10'3/ uL 150-40 0 Not Available [facility] (Lab) [address] [place], [address], 08/26/2024 12:03:47 08/26/19 25 08/25/2024 CBC W/DIF F MPV 10.2 fL 8.8-12 .1 Not Available [facility] (Lab) [address] [place], [address], 08/26/2024 12:03:47 08/26/19 25 08/25/2024 CBC W/DIF F NRBC's 0.0 % 0.0 Not Available [facility] (Lab) [address] [facility], [place], [address], 08/26/2024 12:03:47 08/26/19 25 08/25/2024 CBC W/DIF F absolute NRBCs 0.0 10'3/ uL no refere nce range establ ished Not Available [facility] (Lab) [address] [facility], [place], [address], 08/26/2024 12:03:47 08/26/19 25 08/25/2024 CBC W/DIF F neutrophils 67.0 % 34.0-7 3.0 Not Available [facility] (Lab) [address] [facility], [place], [address], 08/26/2024 12:03:47 08/26/19 25 08/25/2024 CBC W/DIF F lymphocytes 24.5 % 15.0-5 0.0 Not Available [facility] (Lab) [address] [facility], [place], [address], 08/26/2024 12:03:47 08/26/19 25 08/25/2024 CBC W/DIF F monocytes 6.3 % 1.0-15 .0 Not Available [facility] (Lab) [address] [facility], [place], [address], 08/26/2024 12:03:47 08/26/19 25 08/25/2024 CBC W/DIF F eosinophils 1.2 % 0.0-8. 0 Not Available [facility] (Lab) [address] [facility], [place], [address], 08/26/2024 12:03:47 08/26/19 25 08/25/2024 CBC W/DIF F basophils 0.2 % 0.0-2. 0 Not Available [facility] (Lab) [address] [facility], [place], [address], 08/26/2024 12:03:47 08/26/19 25 08/25/2024 CBC W/DIF [...] separ ately if prese nt. Not Available [facility] (Lab) [address] [facility], [place], [address], 08/26/2024 12:03:47 08/26/19 25 08/25/2024 CBC W/DIF F absolute neutrophils 5.6 10'3/ uL 1.5-8. 0 Not Available [facility] (Lab) [address] [facility], [place], [address], 08/26/2024 12:03:47 08/26/19 25 08/25/2024 CBC W/DIF F absolute lymphocytes 2.1 10'3/ uL 1.0-4. 0 Not Available [facility] (Lab) [address] [facility], [place], [address], 08/26/2024 12:03:47 08/26/19 25 08/25/2024 CBC W/DIF F absolute monocytes 0.5 10'3/ uL 0.2-1. 0 Not Available [facility] (Lab) [address] [facility], [place], [address], 08/26/2024 12:03:47 08/26/19 25 08/25/2024 CBC W/DIF F absolute eosinophils 0.1 10'3/ uL 0.0-0. 6 Not Available [facility] (Lab) [address] [facility], [place], [address], 08/26/2024 12:03:47 08/26/19 25 08/25/2024 CBC W/DIF F absolute basophils 0.0 10'3/ uL 0.0-0. 3 Not Available [facility] (Lab) [address], [place], [address], 08/26/2024 12:03:47 08/26/19 25 08/25/2024 CBC W/DIF [...] arciniega book. nm.or g/gen derx Not Available [facility] (Lab) [address], [place], [address], 08/26/2024 12:03:47 08/26/19 25 08/25/2024 TYPE/ RH/SC REEN ABO/Rh type O POS Not Available [facility] (Lab) [address], [place], [address], 08/26/2024 12:03:48 08/26/19 25 08/25/2024 TYPE/ RH/SC REEN antibody screen NEG Not Available [facility] (Lab) [address], [place], [address], 08/26/2024 12:03:48 08/26/19 25 08/25/2024 TYPE/ RH/SC REEN exp date 2024 23:59 Not Available [facility] (Lab) [address], [place], [address], 08/26/2024 12:03:48 08/26/19 25 08/25/2024 HEPAT ITIS B SURFA CE ANTIG EN hepatitis B surface antigen Non-re active non-re active This assay was perfo rmed using [employer] ratio n reage nts and test kits. Value s obtai ellie with other assay metho ds or kits canno t be used inter smith eably . Not Available [facility] (Lab) [address] [facility], [place], [address], 08/26/2024 12:03:48 08/26/19 25 08/25/2024 HEPAT ITIS C ANTIB JAMEEL SCREE N, REFLE X TO CONFI RMATI ON hepatitis C antibody Non-re active non-re active Antib odies to HCV Not Detec lina, does not exclu de the possi bilit y of expos ure to HCV. Not Available [facility] (Lab) [address] [facility], [place], [address], 08/26/2024 12:03:49 08/26/19 25 08/25/2024 TSH, REFLE X FREE T4 TSH 1.44 uIU/m L 0.30-5 .33 Not Available [facility] (Lab) [address] [facility], [place], [address], 08/26/2024 12:03:49 08/26/19 25 08/25/2024 RUBEL LA IGG ANTIB JAMEEL, QUANT rubella antibodies, IgG Reacti ve reacti ve Not Available [facility] (Lab) [address] [facility], [place], [address], 08/26/2024 12:03:50 08/26/19 25 08/25/2024 RUBEL LA IGG ANTIB JAMEEL, QUANT rubella antibodies, IgG quant 242.9 IU/mL >=10 Non-r eacti ve (Non- Immun e) <10 IU/mL React veronica (Immu ne) > or = 10 IU/mL Not Available [facility] (Lab) [address] [place], [address], 08/26/2024 12:03:50 08/26/19 25 08/25/2024 HEMOG LOBIN A1C hemoglobin A1C 4.8 % 4.0-5. 6 The Ameri can Diabe tracey [employer] iatio n recom mends that a prima ry goal of thera py shoul d be a HBA1C of < 7% and that physi cians shoul d reeva luate the treat ment regim en in patie nts with HBA1C value s consi stent ly > 8%. <5.7% Laure l 5.7 - 6.4% Incre ased risk for diabe tracey >=6.5 % Diagn ostic of diabe tracey <7.0% Goal of thera py >8.0% Actio n sugge sted Not Available [facility] (Lab) [address] [facility], [place], [address], 08/26/2024 12:03:50 08/26/19 25 08/25/2024 RPR SCREE N, REFLE X TITER /CONF IRMAT ION RPR qualitative Nonrea ctive nonrea ctive Not Available [facility] (Lab) [address] [facility], [place], [address], 08/26/2024 12:03:51 08/26/19 25 08/25/2024 IMAGE GUIDE D PAP AND HPV REGAR DLESS image guided Pap, HPV regardless of Pap result SEE RESULT S BELOW CASE REPOR T: Cytol ogy Gynec ologi figueroa Repor t Case: [id number] Autho shelley juarez Provi ruben: Madeline Sanders MD Colle cted: 08/25 1442 Order ing Locat ion: [place] [facility] Recei adriana: 08/26 0738 First Scree n: Jessica Gaytan Rescr een: Otto genao, Brandon ed, CT Speci men: Scree luana Pap - Image d, Cervi x [...] ing techn ique. Karen nued regul ar connie craft is the best metho d of cance r preve ntion . If repor lina cytol ogic findi ng do not corre late with physi figueroa and/o r histo rical findi ngs, furth er inves tigat ion is recom torey d, as clini lala summers nted. Not Available [facility] (Lab) [address], [place], [address], 08/27/2024 04:01:28 08/26/1908/25/2024 CULTU RE: URINE result report SEE RESULT S BELOW abnormal Test: Cultu re: Urine Speci men Sourc e: Urine Voide d Speci men Type: Urine Speci men Date: 1441 Resul t Date: 257 Resul t Statu s: Final resul t Abnor mal: Yes Resul ting Lab: [facility] [address] [facility] [address] Tel: CULTU RE ----- ----- ----- --- 25,00 0-50, 000 CFU/m l Strep tococ cus agala ctiae (Grou p B) (Abno rmal) Strep tococ cus agala ctiae (Beta strep Group B Strep ) remai ns unive rsall y susce ptibl e to penic illin , cefaz sejal and vanco mycin . If clind amybrook n is being consi dered for intra partu m proph ylaxi s, pleas e conta ct the lab withi n 5 days. Not Available [facility] (Lab) [address], [place], [address], 08/27/2024 04:01:29 09/23/1909/22/2024 HIV 1/2 ANTIG EN/AN TIBOD Y, REFLE X CONFI RMATI ON HIV antigen/anti body Nonrea ctive nonrea ctive Phleb otomi st misse d drawi ng this test on 08/25 . Do not charg e for venip unctu re. HIV-1 antig en and HIV-1 /HIV- 2 antib odies were not detec lina. No labor atory evide nce of HIV infec tion. Not Available [facility] (Lab) [address] [facility], [place], [address], 09/23/2024 04:49:59 12/16/1912/15/2024 HEMOG LOBIN (HGB) HGB 11.8 g/dL (based on docume nted legal sex) 11.6-1 5.4 Not Available [facility] (Lab) [address] [facility], [place], [address], 12/16/2024 14:27:51 12/16/19 25 12/15/2024 HEMAT OCRIT (HCT) HCT 37.1 % (based on docume nted legal sex) 34.0-4 5.0 Not Available [facility] (Lab) [address] [facility], [place], [address], 12/16/2024 14:27:51 12/16/19 25 12/15/2024 GTT - GESTA ARSH L CONNIE Mcrae, ACOG OB glucose, 1 hour screen 173 mg/dL 70-135 high Not Available [facility] (Lab) [address] [place], [address], 12/16/2024 14:27:52 12/16/1912/15/2024 HIV 1/2 ANTIG EN/AN TIBOD Y, REFLE X CONFI RMATI ON HIV antigen/anti body Nonrea ctive nonrea ctive HIV-1 antig en and HIV-1 /HIV- 2 antib odies were not detec lina. No labor atory evide nce of HIV infec tion. Not Available [facility] (Lab) [address] [facility], [place], [address], 12/16/2024 14:27:52 12/16/19 25 12/15/2024 RPR SCREE N, REFLE X TITER /CONF IRMAT ION RPR qualitative Nonrea ctive nonrea ctive Not Available [facility] (Lab) [address], [place], [address], 12/16/2024 14:27:53 12/31/1912/30/2024 CBC W/DIF F WBC 8.5 10'3/ uL 3.5-10 .5 Not Available [facility] (Lab) [address], [place], [address], 12/31/2024 13:41:41 12/31/19 25 12/30/2024 CBC W/DIF F RBC 4.47 10'6/ uL (based on docume nted legal sex) 3.80-5 .20 Not Available [facility] (Lab) [address], [place], [address], 12/31/2024 13:41:41 12/31/19 25 12/30/2024 CBC W/DIF F HGB 12.5 g/dL (based on docume nted legal sex) 11.6-1 5.4 Not Available [facility] (Lab) [address], [place], [address], 12/31/2024 13:41:41 12/31/19 25 12/30/2024 CBC W/DIF F HCT 39.4 % (based on docume nted legal sex) 34.0-4 5.0 Not Available [facility] (Lab) [address], [place], [address], 12/31/2024 13:41:41 12/31/19 25 12/30/2024 CBC W/DIF F MCV 88.1 fL 80.0-9 9.0 Not Available [facility] (Lab) [address], [place], [address], 12/31/2024 13:41:41 12/31/19 25 12/30/2024 CBC W/DIF F MCH 28.0 pg 27.0-3 4.0 Not Available [facility] (Lab) [address], [place], [address], 12/31/2024 13:41:41 12/31/19 25 12/30/2024 CBC W/DIF F MCHC 31.7 g/dL 32.0-3 5.5 low Not Available [facility] (Lab) [address] [facility], [place], [address], 12/31/2024 13:41:41 12/31/19 25 12/30/2024 CBC W/DIF F RDW 13.8 % 11.0-1 5.0 Not Available [facility] (Lab) [address] [facility], [place], [address], 12/31/2024 13:41:41 12/31/19 25 12/30/2024 CBC W/DIF F plt 209 10'3/ uL 150-40 0 Not Available [facility] (Lab) [address] [facility], [place], [address], 12/31/2024 13:41:41 12/31/19 25 12/30/2024 CBC W/DIF F MPV 10.3 fL 8.8-12 .1 Not Available [facility] (Lab) [address] [facility], [place], [address], 12/31/2024 13:41:41 12/31/19 25 12/30/2024 CBC W/DIF F NRBC's 0.0 % 0.0 Not Available [facility] (Lab) [address] [facility], [place], [address], 12/31/2024 13:41:41 12/31/19 25 12/30/2024 CBC W/DIF F absolute NRBCs 0.0 10'3/ uL no refere nce range establ ished Not Available [facility] (Lab) [address] [facility], [place], [address], 12/31/2024 13:41:41 12/31/19 25 12/30/2024 CBC W/DIF F neutrophils 69.4 % 34.0-7 3.0 Not Available [facility] (Lab) [address] [facility], [place], [address], 12/31/2024 13:41:41 12/31/19 25 12/30/2024 CBC W/DIF F lymphocytes 24.5 % 15.0-5 0.0 Not Available [facility] (Lab) [address] [facility], [place], [address], 12/31/2024 13:41:41 12/31/19 25 12/30/2024 CBC W/DIF F monocytes 4.5 % 1.0-15 .0 Not Available [facility] (Lab) [address] [facility], [place], [address], 12/31/2024 13:41:41 12/31/19 25 12/30/2024 CBC W/DIF F eosinophils 0.6 % 0.0-8. 0 Not Available [facility] (Lab) [address] [facility], [place], [address], 12/31/2024 13:41:41 12/31/19 25 12/30/2024 CBC W/DIF F basophils 0.4 % 0.0-2. 0 Not Available [facility] (Lab) [address] [facility], [place], [address], 12/31/2024 13:41:41 12/31/19 25 12/30/2024 CBC W/DIF [...] separ ately if prese nt. Not Available [facility] (Lab) [address] [facility], [place], [address], 12/31/2024 13:41:41 12/31/19 25 12/30/2024 CBC W/DIF F absolute neutrophils 5.9 10'3/ uL 1.5-8. 0 Not Available [facility] (Lab) [address] [facility], [place], [address], 12/31/2024 13:41:41 12/31/19 25 12/30/2024 CBC W/DIF F absolute lymphocytes 2.1 10'3/ uL 1.0-4. 0 Not Available [facility] (Lab) [address] [facility], [place], [address], 12/31/2024 13:41:41 12/31/19 25 12/30/2024 CBC W/DIF F absolute monocytes 0.4 10'3/ uL 0.2-1. 0 Not Available [facility] (Lab) [address] [facility], [place], [address], 12/31/2024 13:41:41 12/31/19 25 12/30/2024 CBC W/DIF F absolute eosinophils 0.1 10'3/ uL 0.0-0. 6 Not Available [facility] (Lab) [address] [facility], [place], [address], 12/31/2024 13:41:41 12/31/19 25 12/30/2024 CBC W/DIF F absolute basophils 0.0 10'3/ uL 0.0-0. 3 Not Available [facility] (Lab) [address] [facility], [place], [address], 12/31/2024 13:41:41 12/31/19 25 12/30/2024 CBC W/DIF F absolute immature granulocytes 0.1 10'3/ uL 0.00-0 .10 Refer ence range s for nonbi nary/ inter sex or unspe cifie d gende r patie nts have not been estab lishe d. Pleas e refer to the sal olson table for range s estab lishe d for cisge nder patie nts and evalu ate in the clini figueroa sarahi xt of the indiv idual patie nt: https :[email or web address] arciniega book. nm.or g/gen derx Not Available [facility] (Lab) [address] [facility], [place], [address], 12/31/2024 13:41:41 12/31/19 25 12/30/2024 GTT - GESTA ARSH L, 3 HOUR, ACOG glucose, fasting acog 73 mg/dL 70-94 Not Available [facility] (Lab) [address] [facility], [place], [address], 12/31/2024 13:41:42 12/31/19 25 12/30/2024 GTT - GESTA ARSH L, 3 HOUR, ACOG glucose, 1 hour acog 166 mg/dL 70-179 Not Available [facility] (Lab) [address] [facility], [place], [address], 12/31/2024 13:41:42 12/31/19 25 12/30/2024 GTT - GESTA ARSH L, 3 HOUR, ACOG glucose, 2 hour acog 167 mg/dL 70-154 high Not Available [facility] (Lab) [address] [facility], [place], [address], 12/31/2024 13:41:42 12/31/19 25 12/30/2024 GTT - GESTA ARSH L, 3 HOUR, ACOG glucose, 3 hour acog 137 mg/dL 70-139 Not Available [facility] (Lab) [address] [place], [address], 12/31/2024 13:41:42 12/31/19 25 12/30/2024 CMP(C OMPRE HENSI VE METAB OLIC PANEL ) sodium 137 mmol/ L 133-14 6 Not Available [facility] (Lab) [address] [place], [address], 12/31/2024 13:41:42 12/31/19 25 12/30/2024 CMP(C OMPRE HENSI VE METAB OLIC PANEL ) potassium 4.0 mmol/ L 3.5-5. 1 Not Available [facility] (Lab) [address] [place], [address], 12/31/2024 13:41:42 12/31/19 25 12/30/2024 CMP(C OMPRE HENSI VE METAB OLIC PANEL ) chloride 103 mmol/ L 98-107 Not Available [facility] (Lab) [address] [facility], [place], [address], 12/31/2024 13:41:42 12/31/19 25 12/30/2024 CMP(C OMPRE HENSI VE METAB OLIC PANEL ) carbon dioxide 24 mmol/ L 21-31 Not Available [facility] (Lab) [address] [facility], [place], [address], 12/31/2024 13:41:42 12/31/19 25 12/30/2024 CMP(C OMPRE HENSI VE METAB OLIC PANEL ) anion gap 10 mmol/ L 4-13 Not Available [facility] (Lab) [address] [facility], [place], [address], 12/31/2024 13:41:42 12/31/19 25 12/30/2024 CMP(C OMPRE HENSI VE METAB OLIC PANEL ) blood urea nitrogen 8 mg/dL 7-25 Not Available [facility] (Lab) [address] [facility], [place], [address], 12/31/2024 13:41:42 12/31/19 25 12/30/2024 CMP(C OMPRE HENSI VE METAB OLIC PANEL ) creatinine 0.39 mg/dL 0.60-1 .30 low Not Available [facility] (Lab) [address] [facility], [place], [address], 12/31/2024 13:41:42 12/31/19 25 12/30/2024 CMP(C OMPRE HENSI VE METAB OLIC PANEL ) egfrcr (CKD-epi 2020) >90 mL/mi n/1.7 3_m2 >=60 Not Available [facility] (Lab) [address], [place], [address], 12/31/2024 13:41:42 12/31/19 25 12/30/2024 CMP(C OMPRE HENSI VE METAB OLIC PANEL ) calcium 8.7 mg/dL 8.3-10 .5 Not Available [facility] (Lab) [address], [place], [address], 12/31/2024 13:41:42 12/31/19 25 12/30/2024 CMP(C OMPRE HENSI VE METAB OLIC PANEL ) glucose 173 mg/dL 70-100 high Not Available [facility] (Lab) [address], [place], [address], 12/31/2024 13:41:42 12/31/19 25 12/30/2024 CMP(C OMPRE HENSI VE METAB OLIC PANEL ) protein, total 6.4 g/dL 6.4-8. 3 Not Available [facility] (Lab) [address], [place], [address], 12/31/2024 13:41:42 12/31/19 25 12/30/2024 CMP(C OMPRE HENSI VE METAB OLIC PANEL ) albumin 3.5 g/dL 3.5-5. 0 Not Available [facility] (Lab) [address], [place], [address], 12/31/2024 13:41:42 12/31/19 25 12/30/2024 CMP(C OMPRE HENSI VE METAB OLIC PANEL ) ALT 18 units /L 9-43 Not Available [facility] (Lab) [address], [place], [address], 12/31/2024 13:41:42 12/31/19 25 12/30/2024 CMP(C OMPRE HENSI VE METAB OLIC PANEL ) alkaline phosphatase 96 units /L 34-104 Not Available [facility] (Lab) [address], [place], [address], 12/31/2024 13:41:42 12/31/19 25 12/30/2024 CMP(C OMPRE HENSI VE METAB OLIC PANEL ) AST 18 units /L 13-39 Not Available [facility] (Lab) [address], [place], [address], 12/31/2024 13:41:42 12/31/19 25 12/30/2024 CMP(C OMPRE HENSI VE METAB OLIC PANEL ) bilirubin, total 0.5 mg/dL 0.2-1. 2 Not Available [facility] (Lab) [address], [place], [address], 12/31/2024 13:41:42 12/31/19 25 12/30/2024 MIRLANDE TIN / IRON / TRANS MIRLANDE N / TIBC iron 123 ug/dL 40-170 Not Available [facility] (Lab) [address], [place], [address], 12/31/2024 13:41:43 12/31/19 25 12/30/2024 MIRLANDE TIN / IRON / TRANS MIRLANDE N / TIBC transferrin 367 mg/dL 200-36 0 high Not Available [facility] (Lab) [address] [facility], [place], [address], 12/31/2024 13:41:43 12/31/19 25 12/30/2024 MIRLANDE TIN / IRON / TRANS MIRLANDE N / TIBC ferritin 23.6 NG/mL 8.0-25 2.0 Not Available [facility] (Lab) [address] [facility], [place], [address], 12/31/2024 13:41:43 12/31/19 25 12/30/2024 MIRLANDE TIN / IRON / TRANS MIRLANDE N / TIBC TIBC 514 ug/dL 250-45 0 high Not Available [facility] (Lab) [address] [facility], [place], [address], 12/31/2024 13:41:43 12/31/19 25 12/30/2024 MIRLANDE TIN / IRON / TRANS MIRLANDE N / TIBC iron saturation 24 % 20-55 Not Available [facility] (Lab) [address], [place], [address], 12/31/2024 13:41:43 12/31/19 25 12/30/2024 BILE ACIDS , TOTAL bile acids, total 3 umol/ L 0-10 Test Perfo rmed by: [facility] [address] [place] [address] Not Available [facility] (Lab) [address], [place], [address], 12/31/2024 13:41:43 02/10/2002/09/2025 CULTU RE: GROUP B STREP SCREE N, REFLE X SUSCE PTIBI LITY result report SEE RESULT S BELOW abnormal Test: Cultu re: Group B Strep , Refle x Susce ptibi lity ([facility] ) Speci men Sourc e: Vagin a/Rec paxton Speci men Type: Vagin al/Re ctal Speci men Date: 02/09 1452 Resul t Date: 02/13 1510 Resul t Statu s: Final resul t Abnor mal: Yes Resul whitney Lab: [facility] [address] [facility] [address] Tel: CULTU RE ----- ----- ----- --- [...] indu for these drugs . Not Available [facility] (Lab) [address], [place], [address], 02/13/2025 16:13:50 08/26/19 25 08/25/2024 US, obste tric, nucha l trans lucen cy No observ ation record ed. [email or web address] [facility] [address], [place], [address], 08/25/2024 15:03:01 08/26/19 25 08/25/2024 US, obste tric, nucha l trans lucen cy No observ ation record ed. [email or web address] Tia [address], [place], [address], 08/26/2024 13:31:04 10/21/19 25 10/20/2024 US, obste tric, 2nd or 3rd trime ster No observ ation record ed. [email or web address] [facility] [address], [place], [address], 10/20/2024 15:07:51 10/21/19 25 10/20/2024 US, obste tric, 2nd or 3rd trime ster No observ ation record ed. Tia [address], [place], [address], 12/29/2024 17:15:22 11/18/19 25 11/17/2024 US, obste tric, limit ed No observ ation record ed. [email or web address] [address], [place], [address], 11/17/2024 15:58:58 11/18/19 25 11/17/2024 US, obste tric, limit ed No observ ation record ed. [email or web address] [address], [place], [address], 12/29/2024 17:09:12 01/13/20 25 01/12/2025 US, obste tric, follo w-up No observ ation record ed. [email or web address] [facility] [address], [place], [address], 01/12/2025 12:15:18 01/13/20 25 01/12/2025 US, obste tric, follo w-up No observ ation record ed. NIRAV Weber [address], [place], [address], 02/15/2025 10:24:47 Result Notes None recorded. Problems Name Problem SNOMED Code Status Onset Date Resolution Date Notes Provider Name and Address Organization Details Recorded Time 58590867 Active 2024 Hilaira Kessler null, [facility] 12:41:52 Deliverie s by 222092950 Active 2024 TO REPEAT C/S, would like 03/03 SHAWN BACON MD [address], [place], [address], [facility] 12:31:36 Past history of placenta previa 721695247 Active 2024 Jacob Sanders MD [address], [place], [address], [facility] 5 12:49:56 Bacteriur ia 58524390 Active 2024 Hilaria Kessler null, [facility] 5 13:18:44 Bacteriur ia 03007597 Active 2024 Hilarianeha Kessler null, [facility] 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 12:43:49 Problem Notes None recorded. Procedures Surgical History Date Name Laterality Status Provider Name and Address Organization Details Recorded Time Date of Last Pap Smear completed Dia Rocha [facility] 12/29/2024 17:18:43 section completed Hilaria Kessler [facility] 01/21/2023 12:22:47 Imaging Results None [...] and Address Organization Details Last Updated DateTime 02/09/2025 144.78 cm 39.6 kg/m2 18161.4 g 111/68 mm[Hg] Dia Rocha [facility] 02/09/2025 15:13:46 Social History Question Answer Notes LastModified by Organizat ion Details LastModified Time Tobacco Smoking Status Never Smoker Hilaria schmidt [facility] 01/21/2023 12:22:38 If You Are [...] ICD10 Code Diagnosis IMO Codes Diagnosis Note [id number] SHAWN BACON MD [facility] [address],[place] [address] 01/12/2025 11:06:56 01/12/2025 12:11:01 Placenta circumvallata 6449820 O43.113 Z3A.32 2817973 [id number] SHAWN BACON MD [facility] [address],[place] [address] 01/12/2025 11:07:09 01/12/2025 12:46:52 Deliveries by [id number] [id number] - desires [facility] Gestation period, 32 weeks 6096032 Z3A.32 6353663 [id number] SHAWN BACON MD [facility] [address],[place] [address] 01/27/2025 16:23:34 01/27/2025 17:02:24 Bacteriuria 18738023 O99.820 [id number] Deliveries by [id number] O82 [id number] - desires [facility] [id number] SHAWN BACON MD [facility] [address],[place] [address] 02/09/2025 15:07:38 02/09/2025 15:56:09 Gestation period, 36 weeks 16288210 Z3A.36 [id number] Deliveries by [id number] O82 [id number] - desires [facility] Concerns Section Related Observation LastModified by Organization Detai ls LastModified Time None Recorded Concern Status LastModified by Organization Details LastModified Time None Recorded Payers Encounter Date Sequence Insurance Name Policy Number Policy Guillen Covered Member ID Guillen Member ID Guarantor Name 02/09/2025 1 [facility] [id number] Lesley Freemana [id number] Neptrixie Evans 02/09/2025 2 [place] [employer] Lesley Freemana [id number] Lesley Evans Notes Date Note Type Note Provider Name and Address Organization Details Recorded Time 02/09/2025 text/html Generic HPI TemplateReported by Patient SHAWN BACON MD [address], [place], [address], [facility] 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 08/26/19 25 1 O Positive [address] Paolo s OPEN Fetus Data First Name Last Name Admitted to NICU Weight (g) Sex Living Outcome Pediatric Complications Fetus ID Race Codes Race Delivery Type [id number] Problems Problem Notes Problem Name Start Date End Date Resolution Snomed Code Not e Bacteriuria 09/04/2024 65081172 Genetic disorder carrier 10/20/2024 26210682 + 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; needs partner testing prior to next Past history of placenta previa 08/25/2024 361189140 Deliveries by 08/25/[id number] 004 TO REPEAT C/S, would like 03/03 [...] Weight in lbs Pre/Post Dialysis Refused Weight 163.535513636747 BP Diastolic BP Location Tested BP Systolic [...] Weight in lbs Pre/Post Dialysis Refused Weight 166.035004487052 BP Diastolic BP Location Tested BP Systolic [...] Weight in lbs Pre/Post Dialysis Refused Weight 168.576884188074 BP Diastolic BP Location Tested BP Systolic [...] Weight in lbs Pre/Post Dialysis Refused Weight 172.804812001358 BP Diastolic BP Location Tested BP Systolic [...] Type Weight in lbs Pre/Post Dialysis Refused 178.802567526761 BP Diastolic BP Location Tested BP Systolic [...] Weight in lbs Pre/Post Dialysis Refused Weight 178.750965634569 BP Diastolic BP Location Tested BP Systolic [...] Type Weight in lbs Pre/Post Dialysis Refused 177.210975515227 BP Diastolic BP Location Tested BP Systolic [...] Weight in lbs Pre/Post Dialysis Refused Weight 178.719798807436 BP Diastolic BP Location Tested BP Systolic BP Type 69 L arm 118 sitting Fetus Heart Rate Present Fetus Movement A Yes Comments Good movement. No cram ping or bleeding. Discussed day of c section. Patient would like to start leave at 36 weeks due to very physical job. Will send [place] paperwork to the office. Received tdap, RSV and flu vaccines. Preadmission scheduled. RTC 2 weeks. Flowsheet Date 02/09/2025 Cuevas Score Blood Edema Fundus Height Fundus Units Glucose Ketones Leukocytes Nitrite Labor Signs Protein Cervic Dilation Cervic Effacement Cervic Station Type Weight in lbs Pre/Post Dialysis Refused Weight 183.616366977919 BP Diastolic BP Location Tested BP Systolic [...] Weight in lbs Pre/Post Dialysis Refused Weight 182.907487304567 BP Diastolic BP Location Tested BP Systolic [...] Type Weight in lbs Pre/Post Dialysis Refused 183.818542931558 BP Diastolic BP Location Tested BP Systolic [...]
--- OUTSIDE RECORDS SUMMARY | 2025-03-03 00:35 | XMS_ITS | Continuity of Care Document ---
Author Organization [facility], [place] Address [address] [place] [address] Assessment No assessment recorded. Plan of Treatment [...] None recorded. Surgeries section (SURG) 2024 025 [email or web address] [facility], [address] [address], [place], [address], 01/12/2025 13:24:48 Imaging None recorded. Medication Orders None recorded. Patient TargetsNo targets recorded. Patient InstructionsNo instructions recorded. Reason for Referral None Reported. Results Created Date Observation Date Name Description Value Unit Range Abnormal Flag Note LastModifiedBy Organization Detail LastModifiedTime 09/29/1909/28/2024 [UNIT Y] ANEUP LOIDY NIPT fraction 4.6% normal Not Available [facility] [address], [place], [address], 09/28/2024 23:42:26 09/29/19 25 09/28/2024 [UNIT Y] ANEUP LOIDY NIPT 22Q11.2 microdeletio n LOW RISK <1 in 10,000 normal Not Available [facility] [address], [place], [address], 09/28/2024 23:42:26 09/29/19 25 09/28/2024 [UNIT Y] ANEUP LOIDY NIPT sex chromosome aneuploidy NOT DETECT ED normal Not Available [facility] [address], [place], [address], 09/28/2024 23:42:26 09/29/19 25 09/28/2024 [UNIT Y] ANEUP LOIDY NIPT monosomy X LOW RISK <1 in 10,000 normal Not Available [facility] [address], [place], [address], 09/28/2024 23:42:26 09/29/19 25 09/28/2024 [UNIT Y] ANEUP LOIDY NIPT trisomy 13 LOW RISK <1 in 10,000 normal Not Available [facility] [address], [place], [address], 09/28/2024 23:42:26 09/29/19 25 09/28/2024 [UNIT Y] ANEUP LOIDY NIPT trisomy 18 LOW RISK <1 in 10,000 normal Not Available [facility] [address], [place], [address], 09/28/2024 23:42:26 09/29/19 25 09/28/2024 [UNIT Y] ANEUP LOIDY NIPT trisomy 21 LOW RISK <1 in 10,000 normal Not Available [facility] [address], [place], [address], 09/28/2024 23:42:26 09/29/19 25 09/28/2024 [UNIT Y] ANEUP LOIDY NIPT sex MALE normal Not Available [facility] [address], [place], [address], 09/28/2024 23:42:26 09/29/19 25 09/28/2024 [UNIT Y] ANEUP LOIDY NIPT gestation SINGLE TON normal Not Available [facility] [address], [place], [address], 09/28/2024 23:42:26 09/29/19 25 09/28/2024 [UNIT Y] ANEUP LOIDY NIPT for detailed report, see pdf See PDF normal Not Available [facility] [address], [place], [address], 09/28/2024 23:42:26 10/08/19 25 10/07/2024 [UNIT Y] CHARLEEN CATHIE Mcrae fraction 5.7% normal Not Available [facility] [address], [place], [address], 10/07/2024 00:49:52 10/08/19 25 10/07/2024 [UNIT Y] CHARLEEN CATHIE SCRENorbert N alpha-thalas semia nipt result LOW RISK 1 in 2,300 ( patern al ethnic ity); 1 in 14,000 (Gener al popula tion) normal Not Available [facility] [address], [place], [address], 10/07/2024 00:49:52 10/08/19 25 10/07/2024 [UNIT Y] CHARLEEN CATHIE TYSON N spinal muscular atrophy nipt result LOW RISK 1 in 4000 normal Not Available [facility] [address], [place], [address], 10/07/2024 00:49:52 10/08/19 25 10/07/2024 [UNIT Y] CHARLEEN CATHIE SCREE N sickle cell disease/beta -thalassemia /hemoglobino pathies carrier screen NEGATI VE normal Not Available [facility] [address], [place], [address], 10/07/2024 00:49:52 10/08/19 25 10/07/2024 [UNIT Y] CHARLEEN CATHIE TYSON N alpha-thalas semia carrier screen POSITI VE Silent tanvi r; aa/a- abnormal Not Available [facility] [address], [place], [address], 10/07/2024 00:49:52 10/08/19 25 10/07/2024 [UNIT Y] CHARLEEN Mcrae cystic fibrosis carrier screen NEGATI VE normal Not Available [facility] [address], [place], [address], 10/07/2024 00:49:52 10/08/19 25 10/07/2024 [UNIT Y] CHARLEEN Mcrae spinal muscular atrophy carrier screen POSITI VE 1 SMN1 copy abnormal Not Available [facility] [address], [place], [address], 10/07/2024 00:49:52 10/08/19 25 10/07/2024 [UNIT Y] CHARLEEN Mcrae for detailed report, see pdf See PDF normal Not Available [facility] [address], [place], [address], 10/07/2024 00:49:52 08/26/19 25 08/25/2024 CBC W/DIF F WBC 8.4 10'3/ uL 3.5-10 .5 Not Available [facility] (Lab) [address] , [place], [address], 08/26/2024 12:03:47 08/26/19 25 08/25/2024 CBC W/DIF F RBC 4.46 10'6/ uL (based on docume nted legal sex) 3.80-5 .20 Not Available [facility] (Lab) [address], [place], [address], 08/26/2024 12:03:47 08/26/19 25 08/25/2024 CBC W/DIF F HGB 12.3 g/dL (based on docume nted legal sex) 11.6-1 5.4 Not Available [facility] (Lab) [address], [place], [address], 08/26/2024 12:03:47 08/26/19 25 08/25/2024 CBC W/DIF F HCT 37.8 % (based on docume nted legal sex) 34.0-4 5.0 Not Available [facility] (Lab) [address], [place], [address], 08/26/2024 12:03:47 08/26/19 25 08/25/2024 CBC W/DIF F MCV 84.8 fL 80.0-9 9.0 Not Available [facility] (Lab) [address], [place], [address], 08/26/2024 12:03:47 08/26/19 25 08/25/2024 CBC W/DIF F MCH 27.6 pg 27.0-3 4.0 Not Available [facility] (Lab) [address], [place], [address], 08/26/2024 12:03:47 08/26/19 25 08/25/2024 CBC W/DIF F MCHC 32.5 g/dL 32.0-3 5.5 Not Available [facility] (Lab) [address], [place], [address], 08/26/2024 12:03:47 08/26/19 25 08/25/2024 CBC W/DIF F RDW 13.2 % 11.0-1 5.0 Not Available [facility] (Lab) [address], [place], [address], 08/26/2024 12:03:47 08/26/19 25 08/25/2024 CBC W/DIF F plt 254 10'3/ uL 150-40 0 Not Available [facility] (Lab) [address], [place], [address], 08/26/2024 12:03:47 08/26/19 25 08/25/2024 CBC W/DIF F MPV 10.2 fL 8.8-12 .1 Not Available [facility] (Lab) [address], [place], [address], 08/26/2024 12:03:47 08/26/19 25 08/25/2024 CBC W/DIF F NRBC's 0.0 % 0.0 Not Available [facility] (Lab) [address], [place], [address], 08/26/2024 12:03:47 08/26/19 25 08/25/2024 CBC W/DIF F absolute NRBCs 0.0 10'3/ uL no refere nce range establ ished Not Available [facility] (Lab) [address], [place], [address], 08/26/2024 12:03:47 08/26/19 25 08/25/2024 CBC W/DIF F neutrophils 67.0 % 34.0-7 3.0 Not Available [facility] (Lab) [address], [place], [address], 08/26/2024 12:03:47 08/26/19 25 08/25/2024 CBC W/DIF F lymphocytes 24.5 % 15.0-5 0.0 Not Available [facility] (Lab) [address], [place], [address], 08/26/2024 12:03:47 08/26/19 25 08/25/2024 CBC W/DIF F monocytes 6.3 % 1.0-15 .0 Not Available [facility] (Lab) [address] [facility], [place], [address], 08/26/2024 12:03:47 08/26/19 25 08/25/2024 CBC W/DIF F eosinophils 1.2 % 0.0-8. 0 Not Available [facility] (Lab) [address] [facility], [place], [address], 08/26/2024 12:03:47 08/26/19 25 08/25/2024 CBC W/DIF F basophils 0.2 % 0.0-2. 0 Not Available [facility] (Lab) [address], [place], [address], 08/26/2024 12:03:47 08/26/19 25 08/25/2024 CBC W/DIF [...] separ ately if prese nt. Not Available [facility] (Lab) [address], [place], [address], 08/26/2024 12:03:47 08/26/19 25 08/25/2024 CBC W/DIF F absolute neutrophils 5.6 10'3/ uL 1.5-8. 0 Not Available [facility] (Lab) [address] [facility], [place], [address], 08/26/2024 12:03:47 08/26/19 25 08/25/2024 CBC W/DIF F absolute lymphocytes 2.1 10'3/ uL 1.0-4. 0 Not Available [facility] (Lab) [address] [facility], [place], [address], 08/26/2024 12:03:47 08/26/19 25 08/25/2024 CBC W/DIF F absolute monocytes 0.5 10'3/ uL 0.2-1. 0 Not Available [facility] (Lab) [address] [facility], [place], [address], 08/26/2024 12:03:47 08/26/19 25 08/25/2024 CBC W/DIF F absolute eosinophils 0.1 10'3/ uL 0.0-0. 6 Not Available [facility] (Lab) [address] [facility], [place], [address], 08/26/2024 12:03:47 08/26/19 25 08/25/2024 CBC W/DIF F absolute basophils 0.0 10'3/ uL 0.0-0. 3 Not Available [facility] (Lab) [address] [facility], [place], [address], 08/26/2024 12:03:47 08/26/19 25 08/25/2024 CBC W/DIF F absolute immature granulocytes 0.1 10'3/ uL 0.00-0 .10 Refer ence range s for nonbi nary/ inter sex or unspe cifie d gende r patie nts have not been estab lishe d. Pleas e [facility] for range s estab lishe d for cisge nder patie nts and evalu ate in the clini figueroa sarahi xt of the indiv idual patie nt: https :[email or web address] arciniega book. nm.or g/gen derx Not Available [facility] (Lab) [address] [facility], [place], [address], 08/26/2024 12:03:47 08/26/19 25 08/25/2024 TYPE/ RH/SC REEN ABO/Rh type O POS Not Available [facility] (Lab) [address] [place], [address], 08/26/2024 12:03:48 08/26/19 25 08/25/2024 TYPE/ RH/SC REEN antibody screen NEG Not Available [facility] (Lab) [address] [place], [address], 08/26/2024 12:03:48 08/26/19 25 08/25/2024 TYPE/ RH/SC REEN exp date 2024 23:59 Not Available [facility] (Lab) [address] [facility], [place], [address], 08/26/2024 12:03:48 08/26/19 25 08/25/2024 HEPAT ITIS B SURFA CE ANTIG EN hepatitis B surface antigen Non-re active non-re active This assay was perfo rmed using [employer] ratio n reage nts and test kits. Value s obtai ellie with other assay metho ds or kits canno t be used inter smith eably . Not Available [facility] (Lab) [address] [facility], [place], [address], 08/26/2024 12:03:48 08/26/19 25 08/25/2024 HEPAT ITIS C ANTIB JAMEEL SCREE N, REFLE X TO CONFI RMATI ON hepatitis C antibody Non-re active non-re active Antib odies to HCV Not Detec lina, does not exclu de the possi bilit y of expos ure to HCV. Not Available [facility] (Lab) [address] [facility], [place], [address], 08/26/2024 12:03:49 08/26/19 25 08/25/2024 TSH, REFLE X FREE T4 TSH 1.44 uIU/m L 0.30-5 .33 Not Available [facility] (Lab) [address] [place], [address], 08/26/2024 12:03:49 08/26/19 25 08/25/2024 RUBEL LA IGG ANTIB JAMEEL, QUANT rubella antibodies, IgG Reacti ve reacti ve Not Available [facility] (Lab) [address] [facility], [place], [address], 08/26/2024 12:03:50 08/26/19 25 08/25/2024 RUBEL LA IGG ANTIB JAMEEL, QUANT rubella antibodies, IgG quant 242.9 IU/mL >=10 Non-r eacti ve (Non- Immun e) <10 IU/mL React veronica (Immu ne) > or = 10 IU/mL Not Available [facility] (Lab) [address] [facility], [place], [address], 08/26/2024 12:03:50 08/26/19 25 08/25/2024 HEMOG LOBIN A1C hemoglobin A1C 4.8 % 4.0-5. 6 The Ameri can [employer] tracey [employer] i[employer] n recom mends that a prima ry goal of thera py kurtis d be a HBA1C of < 7% and that physi cians shoul d reeva luate the treat ment regim en in patie nts with HBA1C value s consi stent ly > 8%. <5.7% Laure l 5.7 - 6.4% Incre ased risk for diabe tracey >=6.5 % Diagn ostic of diabe tracey <7.0% Goal of thera py >8.0% Actio n sugge sted Not Available [facility] (Lab) [address] [place], [address], 08/26/2024 12:03:50 08/26/19 25 08/25/2024 RPR SCREE N, REFLE X TITER /CONF IRMAT ION RPR qualitative Nonrea ctive nonrea ctive Not Available [facility] (Lab) [address] [place], [address], 08/26/2024 12:03:51 08/26/19 25 08/25/2024 IMAGE GUIDE [...] Recei adriana: 08/26 0738 First Scree n: Francisca foster, Jessica Rescr een: Otto genao, Brandon ed, CT Speci men: Screnorbert luana Pap [...] of bacte rial vagin osis. Elect alan pastrana emily d by Brandon Robles ed, CT on [...] as clini lala summers nted. Not Available [facility] (Lab) [address] [facility], [place], [address], 08/27/2024 04:01:28 08/26/19 25 08/25/2024 CULTU RE: URINE result report SEE RESULT S BELOW abnormal Test: Cultu re: Urine Speci men Sourc e: Urine Voide d Speci men Type: Urine Speci men Date: 1441 Resul t Date: 257 Resul t Statu s: Final resul t Abnor mal: Yes Resul ting Lab: [facility] [address] [facility] [address] Tel: CULTU RE ----- ----- ----- --- 25,00 0-50, 000 CFU/m l Strep tococ cus agala ctiae (Grou p B) (Abno rmal) Strep tococ cus agala ctiae (Beta strep Group B Strep ) remai ns unive rsall y susce ptibl e to penic illin , cefaz sejal and vanco mycin . If clind amyci n is being consi dered for intra partu m proph ylaxi s, pleas e conta ct the lab withi n 5 days. Not Available [facility] (Lab) [address] [facility], [place], [address], 08/27/2024 04:01:29 09/23/19 25 09/22/2024 HIV 1/2 ANTIG EN/AN TIBOD Y, REFLE X CONFI RMATI ON HIV antigen/anti body Nonrea ctive nonrea ctive Phleb otomi st misse d drawi ng this test on 08/25 . Do not charg e for venip unctu re. HIV-1 antig en and HIV-1 /HIV- 2 antib odies were not detec lina. No labor atory evide nce of HIV infec tion. Not Available [facility] (Lab) [address] [facility], [place], [address], 09/23/2024 04:49:59 12/16/1912/15/2024 HEMOG LOBIN (HGB) HGB 11.8 g/dL (based on docume nted legal sex) 11.6-1 5.4 Not Available [facility] (Lab) [address] [facility], [place], [address], 12/16/2024 14:27:51 12/16/1912/15/2024 HEMAT OCRIT (HCT) HCT 37.1 % (based on docume nted legal sex) 34.0-4 5.0 Not Available [facility] (Lab) [address] [place], [address], 12/16/2024 14:27:51 12/16/19 25 12/15/2024 GTT - GESTA ARSH L JAH N, ACOG OB glucose, 1 hour screen 173 mg/dL 70-135 high Not Available [facility] (Lab) [address] [place], [address], 12/16/2024 14:27:52 12/16/1912/15/2024 HIV 1/2 ANTIG EN/AN TIBOD Y, REFLE X CONFI RMATI ON HIV antigen/anti body Nonrea ctive nonrea ctive HIV-1 antig en and HIV-1 /HIV- 2 antib odies were not detec lina. No labor atory evide nce of HIV infec tion. Not Available [facility] (Lab) [address] [place], [address], 12/16/2024 14:27:52 12/16/19 25 12/15/2024 RPR SCREE N, REFLE X TITER /CONF IRMAT ION RPR qualitative Nonrea ctive nonrea ctive Not Available [facility] (Lab) [address] [facility], [place], [address], 12/16/2024 14:27:53 12/31/1912/30/2024 CBC W/DIF F WBC 8.5 10'3/ uL 3.5-10 .5 Not Available [facility] (Lab) [address] [facility], [place], [address], 12/31/2024 13:41:41 12/31/19 25 12/30/2024 CBC W/DIF F RBC 4.47 10'6/ uL (based on docume nted legal sex) 3.80-5 .20 Not Available [facility] (Lab) [address] [facility], [place], [address], 12/31/2024 13:41:41 12/31/19 25 12/30/2024 CBC W/DIF F HGB 12.5 g/dL (based on docume nted legal sex) 11.6-1 5.4 Not Available [facility] (Lab) [address] [facility], [place], [address], 12/31/2024 13:41:41 12/31/19 25 12/30/2024 CBC W/DIF F HCT 39.4 % (based on docume nted legal sex) 34.0-4 5.0 Not Available [facility] (Lab) [address] [facility], [place], [address], 12/31/2024 13:41:41 12/31/19 25 12/30/2024 CBC W/DIF F MCV 88.1 fL 80.0-9 9.0 Not Available [facility] (Lab) [address] [facility], [place], [address], 12/31/2024 13:41:41 12/31/19 25 12/30/2024 CBC W/DIF F MCH 28.0 pg 27.0-3 4.0 Not Available [facility] (Lab) [address] [facility], [place], [address], 12/31/2024 13:41:41 12/31/19 25 12/30/2024 CBC W/DIF F MCHC 31.7 g/dL 32.0-3 5.5 low Not Available [facility] (Lab) [address], [place], [address], 12/31/2024 13:41:41 12/31/19 25 12/30/2024 CBC W/DIF F RDW 13.8 % 11.0-1 5.0 Not Available [facility] (Lab) [address], [place], [address], 12/31/2024 13:41:41 12/31/19 25 12/30/2024 CBC W/DIF F plt 209 10'3/ uL 150-40 0 Not Available [facility] (Lab) [address], [place], [address], 12/31/2024 13:41:41 12/31/19 25 12/30/2024 CBC W/DIF F MPV 10.3 fL 8.8-12 .1 Not Available [facility] (Lab) [address] [facility], [place], [address], 12/31/2024 13:41:41 12/31/19 25 12/30/2024 CBC W/DIF F NRBC's 0.0 % 0.0 Not Available [facility] (Lab) [address] [facility], [place], [address], 12/31/2024 13:41:41 12/31/19 25 12/30/2024 CBC W/DIF F absolute NRBCs 0.0 10'3/ uL no refere nce range establ ished Not Available [facility] (Lab) [address], [place], [address], 12/31/2024 13:41:41 12/31/19 25 12/30/2024 CBC W/DIF F neutrophils 69.4 % 34.0-7 3.0 Not Available [facility] (Lab) [address] [facility], [place], [address], 12/31/2024 13:41:41 12/31/19 25 12/30/2024 CBC W/DIF F lymphocytes 24.5 % 15.0-5 0.0 Not Available [facility] (Lab) [address] [facility], [place], [address], 12/31/2024 13:41:41 12/31/19 25 12/30/2024 CBC W/DIF F monocytes 4.5 % 1.0-15 .0 Not Available [facility] (Lab) [address] [facility], [place], [address], 12/31/2024 13:41:41 12/31/19 25 12/30/2024 CBC W/DIF F eosinophils 0.6 % 0.0-8. 0 Not Available [facility] (Lab) [address] [facility], [place], [address], 12/31/2024 13:41:41 12/31/19 25 12/30/2024 CBC W/DIF F basophils 0.4 % 0.0-2. 0 Not Available [facility] (Lab) [address] [facility], [place], [address], 12/31/2024 13:41:41 12/31/19 25 12/30/2024 CBC W/DIF [...] separ ately if prese nt. Not Available [facility] (Lab) [address] [facility], [place], [address], 12/31/2024 13:41:41 12/31/19 25 12/30/2024 CBC W/DIF F absolute neutrophils 5.9 10'3/ uL 1.5-8. 0 Not Available [facility] (Lab) [address] [facility], [place], [address], 12/31/2024 13:41:41 12/31/1912/30/2024 CBC W/DIF F absolute lymphocytes 2.1 10'3/ uL 1.0-4. 0 Not Available [facility] (Lab) [address] [facility], [place], [address], 12/31/2024 13:41:41 12/31/19 25 12/30/2024 CBC W/DIF F absolute monocytes 0.4 10'3/ uL 0.2-1. 0 Not Available [facility] (Lab) [address] [facility], [place], [address], 12/31/2024 13:41:41 12/31/19 25 12/30/2024 CBC W/DIF F absolute eosinophils 0.1 10'3/ uL 0.0-0. 6 Not Available [facility] (Lab) [address] [facility], [place], [address], 12/31/2024 13:41:41 12/31/19 25 12/30/2024 CBC W/DIF F absolute basophils 0.0 10'3/ uL 0.0-0. 3 Not Available [facility] (Lab) [address] [facility], [place], [address], 12/31/2024 13:41:41 12/31/19 25 12/30/2024 CBC W/DIF F absolute immature granulocytes 0.1 10'3/ uL 0.00-0 .10 Refer ence range s for nonbi nary/ inter sex or unspe cifie d gende r patie nts have not been estab lishe d. Eugenia e refer to the consueloo wing table for range s estab lishe d for cisge nder patie nts and evalu ate in the clini figueroa sarahi xt of the indiv idual patie nt: https :[email or web address] demian book. nm.or g/gen derx Not Available [facility] (Lab) [address] [facility], [place], [address], 12/31/2024 13:41:41 12/31/19 25 12/30/2024 GTT - GESTA ARSH L, 3 HOUR, ACOG glucose, fasting acog 73 mg/dL 70-94 Not Available [facility] (Lab) [address] [facility], [place], [address], 12/31/2024 13:41:42 12/31/19 25 12/30/2024 GTT - GESTA ARSH L, 3 HOUR, ACOG glucose, 1 hour acog 166 mg/dL 70-179 Not Available [facility] (Lab) [address] [facility], [place], [address], 12/31/2024 13:41:42 12/31/19 25 12/30/2024 GTT - GESTA ARSH L, 3 HOUR, ACOG glucose, 2 hour acog 167 mg/dL 70-154 high Not Available [facility] (Lab) [address] [facility], [place], [address], 12/31/2024 13:41:42 12/31/19 25 12/30/2024 GTT - GESTA ARSH L, 3 HOUR, ACOG glucose, 3 hour acog 137 mg/dL 70-139 Not Available [facility] (Lab) [address] [facility], [place], [address], 12/31/2024 13:41:42 12/31/19 25 12/30/2024 CMP(C OMPRE HENSI VE METAB OLIC PANEL ) sodium 137 mmol/ L 133-14 6 Not Available [facility] (Lab) [address] [facility], [place], [address], 12/31/2024 13:41:42 12/31/19 25 12/30/2024 CMP(C OMPRE HENSI VE METAB OLIC PANEL ) potassium 4.0 mmol/ L 3.5-5. 1 Not Available [facility] (Lab) [address] [facility], [place], [address], 12/31/2024 13:41:42 12/31/19 25 12/30/2024 CMP(C OMPRE HENSI VE METAB OLIC PANEL ) chloride 103 mmol/ L 98-107 Not Available [facility] (Lab) [address] [facility], [place], [address], 12/31/2024 13:41:42 12/31/19 25 12/30/2024 CMP(C OMPRE HENSI VE METAB OLIC PANEL ) carbon dioxide 24 mmol/ L 21-31 Not Available [facility] (Lab) [address] [facility], [place], [address], 12/31/2024 13:41:42 12/31/19 25 12/30/2024 CMP(C OMPRE HENSI VE METAB OLIC PANEL ) anion gap 10 mmol/ L 4-13 Not Available [facility] (Lab) [address] [facility], [place], [address], 12/31/2024 13:41:42 12/31/19 25 12/30/2024 CMP(C OMPRE HENSI VE METAB OLIC PANEL ) blood urea nitrogen 8 mg/dL 7-25 Not Available [facility] (Lab) [address] [facility], [place], [address], 12/31/2024 13:41:42 12/31/19 25 12/30/2024 CMP(C OMPRE HENSI VE METAB OLIC PANEL ) creatinine 0.39 mg/dL 0.60-1 .30 low Not Available [facility] (Lab) [address] [facility], [place], [address], 12/31/2024 13:41:42 12/31/19 25 12/30/2024 CMP(C OMPRE HENSI VE METAB OLIC PANEL ) egfrcr (CKD-epi 2020) >90 mL/mi n/1.7 3_m2 >=60 Not Available [facility] (Lab) [address] [facility], [place], [address], 12/31/2024 13:41:42 12/31/19 25 12/30/2024 CMP(C OMPRE HENSI VE METAB OLIC PANEL ) calcium 8.7 mg/dL 8.3-10 .5 Not Available [facility] (Lab) [address] [facility], [place], [address], 12/31/2024 13:41:42 12/31/19 25 12/30/2024 CMP(C OMPRE HENSI VE METAB OLIC PANEL ) glucose 173 mg/dL 70-100 high Not Available [facility] (Lab) [address] [facility] [address], [place], [address], 12/31/2024 13:41:42 12/31/19 25 12/30/2024 CMP(C OMPRE HENSI VE METAB OLIC PANEL ) protein, total 6.4 g/dL 6.4-8. 3 Not Available [facility] (Lab) [address] [facility] [address], [place], [address], 12/31/2024 13:41:42 12/31/19 25 12/30/2024 CMP(C OMPRE HENSI VE METAB OLIC PANEL ) albumin 3.5 g/dL 3.5-5. 0 Not Available [facility] (Lab) [address] [facility] [address], [place], [address], 12/31/2024 13:41:42 12/31/19 25 12/30/2024 CMP(C OMPRE HENSI VE METAB OLIC PANEL ) ALT 18 units /L 9-43 Not Available [facility] (Lab) [address] [facility] [address], [place], [address], 12/31/2024 13:41:42 12/31/19 25 12/30/2024 CMP(C OMPRE HENSI VE METAB OLIC PANEL ) alkaline phosphatase 96 units /L 34-104 Not Available [facility] (Lab) [address] [facility] [address], [place], [address], 12/31/2024 13:41:42 12/31/19 25 12/30/2024 CMP(C OMPRE HENSI VE METAB OLIC PANEL ) AST 18 units /L 13-39 Not Available [facility] (Lab) [address] [facility] [address], [place], [address], 12/31/2024 13:41:42 12/31/19 25 12/30/2024 CMP(C OMPRE HENSI VE METAB OLIC PANEL ) bilirubin, total 0.5 mg/dL 0.2-1. 2 Not Available [facility] (Lab) [address], [place], [address], 12/31/2024 13:41:42 12/31/19 25 12/30/2024 MIRLANDE TIN / IRON / TRANS MIRLANDE N / TIBC iron 123 ug/dL 40-170 Not Available [facility] (Lab) [address] [facility], [place], [address], 12/31/2024 13:41:43 12/31/19 25 12/30/2024 MIRLANDE TIN / IRON / TRANS MIRLANDE N / TIBC transferrin 367 mg/dL 200-36 0 high Not Available [facility] (Lab) [address], [place], [address], 12/31/2024 13:41:43 12/31/19 25 12/30/2024 MIRLANDE TIN / IRON / TRANS MIRLANDE N / TIBC ferritin 23.6 NG/mL 8.0-25 2.0 Not Available [facility] (Lab) [address] [facility] [address], [place], [address], 12/31/2024 13:41:43 12/31/19 25 12/30/2024 MIRLANDE TIN / IRON / TRANS MIRLANDE N / TIBC TIBC 514 ug/dL 250-45 0 high Not Available [facility] (Lab) [address] [place], [address], 12/31/2024 13:41:43 12/31/19 25 12/30/2024 MIRLANDE TIN / IRON / TRANS MIRLANDE N / TIBC iron saturation 24 % 20-55 Not Available [facility] (Lab) [address] [facility], [place], [address], 12/31/2024 13:41:43 12/31/19 25 12/30/2024 BILE ACIDS , TOTAL bile acids, total 3 umol/ L 0-10 Test Perfo rmed by: [facility] [address] [place] [address] Not Available [facility] (Lab) [address], [place], [address], 12/31/2024 13:41:43 08/26/19 25 08/25/2024 US, obste tric, nucha l trans lucen cy No observ ation record ed. [email or web address] [facility] [address], [place], [address], 08/25/2024 15:03:01 08/26/19 25 08/25/2024 US, obste tric, nucha l trans lucen cy No observ ation record ed. [email or web address] [address], [place], [address], 08/26/2024 13:31:04 10/21/19 25 10/20/2024 US, obste tric, 2nd or 3rd trime ster No observ ation record ed. [email or web address] [facility] [address], [place], [address], 10/20/2024 15:07:51 10/21/19 25 10/20/2024 US, obste tric, 2nd or 3rd trime ster No observ ation record ed. [email or web address] [address] [address], [place], [address], 12/29/2024 17:15:22 11/18/19 25 11/17/2024 US, obste tric, limit ed No observ ation record ed. [email or web address] [facility] [address], [place], [address], 11/17/2024 15:58:58 11/18/19 25 11/17/2024 US, obste tric, limit ed No observ ation record ed. [email or web address] [address] [address], [place], [address], 12/29/2024 17:09:12 01/13/20 25 01/12/2025 US, obste tric, follo w-up No observ ation record ed. [email or web address] [facility] [address], [place], [address], 01/12/2025 12:15:18 01/13/20 25 01/12/2025 US, obste tric, follo w-up No observ ation record ed. NIRAV [facility] [address], [place], [address], 02/15/2025 10:24:47 Result Notes None recorded. Problems Name Problem SNOMED Code Status Onset Date Resolution Date Notes Provider Name and Address Organization Details Recorded Time 82472615 Active [address] [facility] 12:41:52 Deliverie s by [id number] Active 2024 TO REPEAT C/S, would like 03/03 SHAWN BACON MD [address], [place], [address], [place] [facility] 12:31:36 Past history of placenta previa 393731596 Active 2024 Jacob Sanders MD [address], [place], [address], [place] [facility] 12:49:56 Bacteriur jose a 44695137 Active [address] [facility] 13:18:44 Bacteriur ia 09097188 Active 2024 [facility] 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 12:43:49 Problem Notes None recorded. Procedures Surgical History Date Name Laterality Status Provider Name and Address Organization Details Recorded Time Date of Last Pap Smear completed Dia [facility] 12/29/2024 17:18:43 section [address]ia Kessler [facility] 01/21/2023 12:22:47 Imaging Results None [...] Address Organization Details Last Updated DateTime 01/12/2025 66408.849 49 g 38.3 kg/m2 144.78 cm 105/64 mm[Hg] Dia Rocha [facility] 01/12/2025 12:15:11 Social History Question Answer Notes LastModified by Organizat ion Details LastModified Time Tobacco Smoking Status Never Smoker Hilaria Victoria null, [facility] 01/21/2023 12:22:38 If You Are , [...] ICD10 Code Diagnosis IMO Codes Diagnosis Note [id number] SHAWN BACON MD [facility] [address] [address] 12/15/2024 14:54:05 12/15/2024 15:57:01 Deliveries by [id number] O82 711437 - desires RCS Gestation period, 28 weeks 63970458 Z3A.28 3674420 [id number] SHAWN BACON MD [facility] [address] [address] 12/29/2024 17:08:45 01/01/2025 08:55:23 Itching of skin 292487692 L29.89 [id number] Deliveries by [id number] O82 546707 - desires [facility] Gestation period, 30 weeks 83106422 Z3A.30 7061505 [id number] SHAWN BACON MD [facility] [address] [address] 01/12/2025 11:06:56 01/12/2025 12:11:01 Placenta circumvallata 7836909 O43.113 Z3A.32 1511998 [id number] SHAWN BACON MD [facility] [address] [address] 01/12/2025 11:07:09 01/12/2025 12:46:52 Deliveries by [id number] O82 658233 - [facility] Gestation period, 32 weeks 4252768 Z3A.32 3532101 Health Concerns Section Related Observation LastModified by Organization Detai ls LastModified Time None Recorded Concern Status LastModified by Organization Details LastModified Time None Recorded Payers Encounter Date Sequence Insurance Name Policy Number Policy Guillen Covered Member ID Guillen Member ID Guarantor Name 01/12/2025 1 [facility] [id number] Nepmary C Evans [id number] Nepmary Evans 01/12/2025 2 [place]: [facility] Nepmary Evans [id number] Nepmary Evans Notes Date Note Type Note Provider Name and Address Organization Details Recorded Time 01/12/2025 text/html Generic HPI TemplateReported by Patient Dia Aj [facility] 01/12/2025 14:45:18 OBGyn Episode Ob Episode Information Episode Created Date Number of Fetuses Patient Bloodtype Patient rh Status Prepregnancy Weight lbs Domestic Partner Domestic Partner Phone Father Name Surgical Instruments Inspector Status 08/26/19 25 1 O Positive [address] s OPEN Fetus Data First Name Last Name Admitted to NICU Weight (g) Sex Living Outcome Pediatric Complications Fetus ID Race Codes Race Delivery Type [id number] Problems Problem Notes Problem Name Start Date End Date Resolution Snomed Code Not e Bacteriuria 09/04/2024 50979683 Genetic disorder carrier 10/20/2024 09701355 + 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; needs partner testing prior to next Past history of placenta previa 08/25/2024 443000851 Deliveries by 08/25/[id number] 004 TO REPEAT C/S, would like 03/03 [...] Gestation 0 [email or web address] 08/25/2024 03/06/20 25 0 Pre- Flowsheet Flowsheet Date 08/25/2024 Cuevas Score Blood [...] Weight in lbs Pre/Post Dialysis Refused Weight 163.974672941034 BP Diastolic BP Location Tested BP Systolic [...] Weight in lbs Pre/Post Dialysis Refused Weight 166.921748455304 BP Diastolic BP Location Tested BP Systolic [...] Weight in lbs Pre/Post Dialysis Refused Weight 168.853441298869 BP Diastolic BP Location Tested BP Systolic [...] Weight in lbs Pre/Post Dialysis Refused Weight 172.769827444404 BP Diastolic BP Location Tested BP Systolic [...] Type Weight in lbs Pre/Post Dialysis Refused 178.495290918446 BP Diastolic BP Location Tested BP Systolic [...] Weight in lbs Pre/Post Dialysis Refused Weight 178.412038446973 BP Diastolic BP Location Tested BP Systolic [...] Type Weight in lbs Pre/Post Dialysis Refused 177.542045157498 BP Diastolic BP Location Tested BP Systolic [...] Weight in lbs Pre/Post Dialysis Refused Weight 178.672159321330 BP Diastolic BP Location Tested BP Systolic [...] Weight in lbs Pre/Post Dialysis Refused Weight 183.754371778471 BP Diastolic BP Location Tested BP Systolic [...] Weight in lbs Pre/Post Dialysis Refused Weight 182.652399245409 BP Diastolic BP Location Tested BP Systolic [...] Type Weight in lbs Pre/Post Dialysis Refused 183.799452795134 BP Diastolic BP Location Tested BP Systolic [...]
--- OUTSIDE RECORDS SUMMARY | 2025-03-03 00:35 | XMS_ITS | Continuity of Care Document ---
Author Organization [facility] [place] Address [address] [place] [address] [place] [address] Assessment No assessment recorded. Plan of Treatment Reminders Order Date Submit Date Provider Last Modified By Organization Details Last Modified Time Details Appointments SURG CSection 2024 07:30A Conchis BACON MD Not available Not available Not available SURG POST OP 2024 11:00A Conchis BACON MD Not available Not available Not available Lab None recorded. Referral None recorded. Procedures None recorded. Surgeries None recorded. Imaging US, obstetric , follow-up 2024 025 [email or web address] [place], [address], [address], [place], [address], 01/12/2025 13:28:36 Medication Orders None recorded. Patient TargetsNo targets recorded. Patient InstructionsNo instructions recorded. Reason for Referral None Reported. Results Created Date Observation Date Name Description Value Unit Range Abnormal Flag Note LastModifiedBy Organization Detail LastModifiedTime 09/29/1909/28/2024 [UNIT Y] ANEUP LOIDY NIPT fraction 4.6% normal Not Available [facility] [address], [place], [address], 09/28/2024 23:42:26 09/29/19 25 09/28/2024 [UNIT Y] ANEUP LOIDY NIPT 22Q11.2 microdeletio n LOW RISK <1 in 10,000 normal Not Available [facility] [address], [place], [address], 09/28/2024 23:42:26 09/29/19 25 09/28/2024 [UNIT Y] ANEUP LOIDY NIPT sex chromosome aneuploidy NOT DETECT ED normal Not Available [facility] [address], [place], [address], 09/28/2024 23:42:26 09/29/19 25 09/28/2024 [UNIT Y] ANEUP LOIDY NIPT monosomy X LOW RISK <1 in 10,000 normal Not Available [facility] [address], [place], [address], 09/28/2024 23:42:26 09/29/19 25 09/28/2024 [UNIT Y] ANEUP LOIDY NIPT trisomy 13 LOW RISK <1 in 10,000 normal Not Available [facility] [address], [place], [address], 09/28/2024 23:42:26 09/29/19 25 09/28/2024 [UNIT Y] ANEUP LOIDY NIPT trisomy 18 LOW RISK <1 in 10,000 normal Not Available [facility] [address], [place], [address], 09/28/2024 23:42:26 09/29/19 25 09/28/2024 [UNIT Y] ANEUP LOIDY NIPT trisomy 21 LOW RISK <1 in 10,000 normal Not Available [facility] [address], [place], [address], 09/28/2024 23:42:26 09/29/19 25 09/28/2024 [UNIT Y] ANEUP LOIDY NIPT sex MALE normal Not Available [facility] [address], [place], [address], 09/28/2024 23:42:26 09/29/19 25 09/28/2024 [UNIT Y] ANEUP LOIDY NIPT gestation SINGLE TON normal Not Available [facility] [address], [place], [address], 09/28/2024 23:42:26 09/29/19 25 09/28/2024 [UNIT Y] ANEUP LOIDY NIPT for detailed report, see pdf See PDF normal Not Available [facility] [address], [place], [address], 09/28/2024 23:42:26 10/08/19 25 10/07/2024 [UNIT Y] CHARLEEN CATHIE Mcrae fraction 5.7% normal Not Available [facility] [address], [place], [address], 10/07/2024 00:49:52 10/08/19 25 10/07/2024 [UNIT Y] CHARLEEN CATHIE Mcrae alpha-thalas semia nipt result LOW RISK 1 in 2,300 ( patern al ethnic ity); 1 in 14,000 (Gener al popula tion) normal Not Available [facility] [address], [place], [address], 10/07/2024 00:49:52 10/08/19 25 10/07/2024 [UNIT Y] CHARLEEN CATHIE Mcrae spinal muscular atrophy nipt result LOW RISK 1 in 4000 normal Not Available [facility] [address], [place], [address], 10/07/2024 00:49:52 10/08/19 25 10/07/2024 [UNIT Y] CHARLEEN CATHIE Mcrae sickle cell disease/beta -thalassemia /hemoglobino pathies carrier screen NEGATI VE normal Not Available [facility] [address], [place], [address], 10/07/2024 00:49:52 10/08/19 25 10/07/2024 [UNIT Y] CHARLEEN CATHIE TYSON N alpha-thalas semia carrier screen POSITI VE Silent tanvi r; aa/a- abnormal Not Available [facility] [address], [place], [address], 10/07/2024 00:49:52 10/08/19 25 10/07/2024 [UNIT Y] CHARLEEN CATHIE Mcrae cystic fibrosis carrier screen NEGATI VE normal Not Available [facility] [address], [place], [address], 10/07/2024 00:49:52 10/08/19 25 10/07/2024 [UNIT Y] CHARLEEN Mcrae spinal muscular atrophy carrier screen POSITI VE 1 SMN1 copy abnormal Not Available [facility] [address], [place], [address], 10/07/2024 00:49:52 10/08/19 25 10/07/2024 [UNIT Y] CHARLEEN Mcrae for detailed report, see pdf See PDF normal Not Available [facility] [address], [place], [address], 10/07/2024 00:49:52 08/26/19 25 08/25/2024 CBC W/DIF F WBC 8.4 10'3/ uL 3.5-10 .5 Not Available [facility] (Lab) [address], [place], [address], 08/26/2024 12:03:47 08/26/19 25 08/25/2024 CBC W/DIF F RBC 4.46 10'6/ uL (based on docume nted legal sex) 3.80-5 .20 Not Available [facility] (Lab) [address], [place], [address], 08/26/2024 12:03:47 08/26/19 25 08/25/2024 CBC W/DIF F HGB 12.3 g/dL (based on docume nted legal sex) 11.6-1 5.4 Not Available [facility] (Lab) [address], [place], [address], 08/26/2024 12:03:47 08/26/19 25 08/25/2024 CBC W/DIF F HCT 37.8 % (based on docume nted legal sex) 34.0-4 5.0 Not Available [facility] (Lab) [address], [place], [address], 08/26/2024 12:03:47 08/26/19 25 08/25/2024 CBC W/DIF F MCV 84.8 fL 80.0-9 9.0 Not Available [facility] (Lab) [address], [place], [address], 08/26/2024 12:03:47 08/26/19 25 08/25/2024 CBC W/DIF F MCH 27.6 pg 27.0-3 4.0 Not Available [facility] (Lab) [address], [place], [address], 08/26/2024 12:03:47 08/26/19 25 08/25/2024 CBC W/DIF F MCHC 32.5 g/dL 32.0-3 5.5 Not Available [facility] (Lab) [address], [place], [address], 08/26/2024 12:03:47 08/26/19 25 08/25/2024 CBC W/DIF F RDW 13.2 % 11.0-1 5.0 Not Available [facility] (Lab) [address], [place], [address], 08/26/2024 12:03:47 08/26/19 25 08/25/2024 CBC W/DIF F plt 254 10'3/ uL 150-40 0 Not Available [facility] (Lab) [address], [place], [address], 08/26/2024 12:03:47 08/26/19 25 08/25/2024 CBC W/DIF F MPV 10.2 fL 8.8-12 .1 Not Available [facility] (Lab) [address] [place], [address], 08/26/2024 12:03:47 08/26/19 25 08/25/2024 CBC W/DIF F NRBC's 0.0 % 0.0 Not Available [facility] (Lab) [address] [facility], [place], [address], 08/26/2024 12:03:47 08/26/19 25 08/25/2024 CBC W/DIF F absolute NRBCs 0.0 10'3/ uL no refere nce range establ ished Not Available [facility] (Lab) [address] [facility], [place], [address], 08/26/2024 12:03:47 08/26/19 25 08/25/2024 CBC W/DIF F neutrophils 67.0 % 34.0-7 3.0 Not Available [facility] (Lab) [address] [facility], [place], [address], 08/26/2024 12:03:47 08/26/19 25 08/25/2024 CBC W/DIF F lymphocytes 24.5 % 15.0-5 0.0 Not Available [facility] (Lab) [address] [facility], [place], [address], 08/26/2024 12:03:47 08/26/19 25 08/25/2024 CBC W/DIF F monocytes 6.3 % 1.0-15 .0 Not Available [facility] (Lab) [address] [facility], [place], [address], 08/26/2024 12:03:47 08/26/19 25 08/25/2024 CBC W/DIF F eosinophils 1.2 % 0.0-8. 0 Not Available [facility] (Lab) [address] [facility], [place], [address], 08/26/2024 12:03:47 08/26/19 25 08/25/2024 CBC W/DIF F basophils 0.2 % 0.0-2. 0 Not Available [facility] (Lab) [address] [facility], [place], [address], 08/26/2024 12:03:47 08/26/19 25 08/25/2024 CBC W/DIF [...] separ ately if prese nt. Not Available [facility] (Lab) [address] [facility], [place], [address], 08/26/2024 12:03:47 08/26/19 25 08/25/2024 CBC W/DIF F absolute neutrophils 5.6 10'3/ uL 1.5-8. 0 Not Available [facility] (Lab) [address] [facility], [place], [address], 08/26/2024 12:03:47 08/26/19 25 08/25/2024 CBC W/DIF F absolute lymphocytes 2.1 10'3/ uL 1.0-4. 0 Not Available [facility] (Lab) [address] [facility], [place], [address], 08/26/2024 12:03:47 08/26/19 25 08/25/2024 CBC W/DIF F absolute monocytes 0.5 10'3/ uL 0.2-1. 0 Not Available [facility] (Lab) [address] [facility], [place], [address], 08/26/2024 12:03:47 08/26/19 25 08/25/2024 CBC W/DIF F absolute eosinophils 0.1 10'3/ uL 0.0-0. 6 Not Available [facility] (Lab) [address] [facility], [place], [address], 08/26/2024 12:03:47 08/26/19 25 08/25/2024 CBC W/DIF F absolute basophils 0.0 10'3/ uL 0.0-0. 3 Not Available [facility] (Lab) [address], [place], [address], 08/26/2024 12:03:47 08/26/19 25 08/25/2024 CBC W/DIF [...] arciniega book. nm.or g/gen derx Not Available [facility] (Lab) [address], [place], [address], 08/26/2024 12:03:47 08/26/1908/25/2024 TYPE/ RH/SC REEN ABO/Rh type O POS Not Available [facility] (Lab) [address] [facility], [place], [address], 08/26/2024 12:03:48 08/26/19 25 08/25/2024 TYPE/ RH/SC REEN antibody screen NEG Not Available [facility] (Lab) [address] [place], [address], 08/26/2024 12:03:48 08/26/1908/25/2024 TYPE/ RH/SC REEN exp date 2024 23:59 Not Available [facility] (Lab) [address] [facility], [place], [address], 08/26/2024 12:03:48 08/26/19 25 08/25/2024 HEPAT ITIS B SURFA CE ANTIG EN hepatitis B surface antigen Non-re active non-re active This assay was perfo rmed using [employer] n reage nts and test kits. Value s obtai ellie with other assay metho ds or kits canno t be used inter smith eably . Not Available [facility] (Lab) [address] [facility], [place], [address], 08/26/2024 12:03:48 08/26/19 25 08/25/2024 HEPAT ITIS C ANTIB JAMEEL SCREE N, REFLE X TO CONFI RMATI ON hepatitis C antibody Non-re active non-re active Antib odies to HCV Not Detec lina, does not exclu de the possi bilit y of expos ure to HCV. Not Available [facility] (Lab) [address] [facility], [place], [address], 08/26/2024 12:03:49 08/26/19 25 08/25/2024 TSH, REFLE X FREE T4 TSH 1.44 uIU/m L 0.30-5 .33 Not Available [facility] (Lab) [address] [facility], [place], [address], 08/26/2024 12:03:49 08/26/19 25 08/25/2024 RUBEL LA IGG ANTIB JAMEEL, QUANT rubella antibodies, IgG Reacti ve reacti ve Not Available [facility] (Lab) [address] [facility], [place], [address], 08/26/2024 12:03:50 08/26/19 25 08/25/2024 RUBEL LA IGG ANTIB JAMEEL, QUANT rubella antibodies, IgG quant 242.9 IU/mL >=10 Non-r eacti ve (Non- Immun e) <10 IU/mL React veronica (Immu ne) > or = 10 IU/mL Not Available [facility] (Lab) [address] [place], [address], 08/26/2024 12:03:50 08/26/19 25 08/25/2024 HEMOG LOBIN A1C hemoglobin A1C 4.8 % 4.0-5. 6 The Ameri can [employer] tracey [employer] i[employer] n recom mends that a prima ry goal of thera monalisa [place] d be a HBA1C of < 7% and that physi cians shoul d reeva luate the treat ment regim en in patie nts with HBA1C value s consi stent ly > 8%. <5.7% Laure l 5.7 - 6.4% Incre ased risk for diabe tracey >=6.5 % Diagn ostic of diabe tracey <7.0% Goal of thera py >8.0% Actio n sugge sted Not Available [facility] (Lab) [address] [facility], [place], [address], 08/26/2024 12:03:50 08/26/19 25 08/25/2024 RPR SCREE N, REFLE X TITER /CONF IRMAT ION RPR qualitative Nonrea ctive nonrea ctive Not Available [facility] (Lab) [address] [facility], [place], [address], 08/26/2024 12:03:51 08/26/19 25 08/25/2024 IMAGE GUIDE [...] stive of bacte rial vagin osis. Elect carmengilberto diaz d by Brandon Robles ed, CT [...] as clini lala summers nted. Not Available [facility] (Lab) [address], [place], [address], 08/27/2024 04:01:28 08/26/1908/25/2024 CULTU RE: URINE result report SEE RESULT S BELOW abnormal Test: Cultu re: Urine Speci men Sourc e: Urine Voide d Speci men Type: Urine Speci men Date: 1441 Resul t Date: 257 Resul t Statu s: Final resul t Abnor mal: Yes Resul ting Lab: [facility] [address] [facility] [address] Tel: CULTU RE ----- ----- ----- --- [...] lab withi n 5 days. Not Available [facility] (Lab) [address], [place], [address], 08/27/2024 04:01:29 09/23/1909/22/2024 HIV 1/2 ANTIG EN/AN [...] nce of HIV infec tion. Not Available [facility] (Lab) [address] [facility], [place], [address], 09/23/2024 04:49:59 12/16/1912/15/2024 HEMOG LOBIN (HGB) HGB 11.8 g/dL (based on docume nted legal sex) 11.6-1 5.4 Not Available [facility] (Lab) [address] [facility], [place], [address], 12/16/2024 14:27:51 12/16/19 25 12/15/2024 HEMAT OCRIT (HCT) HCT 37.1 % (based on docume nted legal sex) 34.0-4 5.0 Not Available [facility] (Lab) [address] [facility], [place], [address], 12/16/2024 14:27:51 12/16/19 25 12/15/2024 GTT - GESTA ARSH L JAH N, ACOG OB glucose, 1 hour screen 173 mg/dL 70-135 high Not Available [facility] (Lab) [address] [facility], [place], [address], 12/16/2024 14:27:52 12/16/19 25 12/15/2024 HIV 1/2 ANTIG EN/AN TIBOD Y, REFLE X CONFI RMATI ON HIV antigen/anti body Nonrea ctive nonrea ctive HIV-1 antig en and HIV-1 /HIV- 2 antib odies were not detec lina. No labor atory evide nce of HIV infec tion. Not Available [facility] (Lab) [address] [facility], [place], [address], 12/16/2024 14:27:52 12/16/19 25 12/15/2024 RPR SCREE N, REFLE X TITER /CONF IRMAT ION RPR qualitative Nonrea ctive nonrea ctive Not Available [facility] (Lab) [address], [place], [address], 12/16/2024 14:27:53 12/31/1912/30/2024 CBC W/DIF F WBC 8.5 10'3/ uL 3.5-10 .5 Not Available [facility] (Lab) [address], [place], [address], 12/31/2024 13:41:41 12/31/19 25 12/30/2024 CBC W/DIF F RBC 4.47 10'6/ uL (based on docume nted legal sex) 3.80-5 .20 Not Available [facility] (Lab) [address], [place], [address], 12/31/2024 13:41:41 12/31/19 25 12/30/2024 CBC W/DIF F HGB 12.5 g/dL (based on docume nted legal sex) 11.6-1 5.4 Not Available [facility] (Lab) [address], [place], [address], 12/31/2024 13:41:41 12/31/19 25 12/30/2024 CBC W/DIF F HCT 39.4 % (based on docume nted legal sex) 34.0-4 5.0 Not Available [facility] (Lab) [address], [place], [address], 12/31/2024 13:41:41 12/31/1912/30/2024 CBC W/DIF F MCV 88.1 fL 80.0-9 9.0 Not Available [facility] (Lab) [address], [place], [address], 12/31/2024 13:41:41 12/31/19 25 12/30/2024 CBC W/DIF F MCH 28.0 pg 27.0-3 4.0 Not Available [facility] (Lab) [address], [place], [address], 12/31/2024 13:41:41 12/31/19 25 12/30/2024 CBC W/DIF F MCHC 31.7 g/dL 32.0-3 5.5 low Not Available [facility] (Lab) [address] [facility], [place], [address], 12/31/2024 13:41:41 12/31/19 25 12/30/2024 CBC W/DIF F RDW 13.8 % 11.0-1 5.0 Not Available [facility] (Lab) [address] [facility], [place], [address], 12/31/2024 13:41:41 12/31/19 25 12/30/2024 CBC W/DIF F plt 209 10'3/ uL 150-40 0 Not Available [facility] (Lab) [address] [facility], [place], [address], 12/31/2024 13:41:41 12/31/19 25 12/30/2024 CBC W/DIF F MPV 10.3 fL 8.8-12 .1 Not Available [facility] (Lab) [address] [facility], [place], [address], 12/31/2024 13:41:41 12/31/19 25 12/30/2024 CBC W/DIF F NRBC's 0.0 % 0.0 Not Available [facility] (Lab) [address] [facility], [place], [address], 12/31/2024 13:41:41 12/31/19 25 12/30/2024 CBC W/DIF F absolute NRBCs 0.0 10'3/ uL no refere nce range establ ished Not Available [facility] (Lab) [address] [facility], [place], [address], 12/31/2024 13:41:41 12/31/19 25 12/30/2024 CBC W/DIF F neutrophils 69.4 % 34.0-7 3.0 Not Available [facility] (Lab) [address] [facility], [place], [address], 12/31/2024 13:41:41 12/31/19 25 12/30/2024 CBC W/DIF F lymphocytes 24.5 % 15.0-5 0.0 Not Available [facility] (Lab) [address] [facility], [place], [address], 12/31/2024 13:41:41 12/31/19 25 12/30/2024 CBC W/DIF F monocytes 4.5 % 1.0-15 .0 Not Available [facility] (Lab) [address] [facility], [place], [address], 12/31/2024 13:41:41 12/31/19 25 12/30/2024 CBC W/DIF F eosinophils 0.6 % 0.0-8. 0 Not Available [facility] (Lab) [address] [facility], [place], [address], 12/31/2024 13:41:41 12/31/19 25 12/30/2024 CBC W/DIF F basophils 0.4 % 0.0-2. 0 Not Available [facility] (Lab) [address] [facility], [place], [address], 12/31/2024 13:41:41 12/31/19 25 12/30/2024 CBC W/DIF [...] separ ately if prese nt. Not Available [facility] (Lab) [address] [facility], [place], [address], 12/31/2024 13:41:41 12/31/19 25 12/30/2024 CBC W/DIF F absolute neutrophils 5.9 10'3/ uL 1.5-8. 0 Not Available [facility] (Lab) [address] [facility], [place], [address], 12/31/2024 13:41:41 12/31/19 25 12/30/2024 CBC W/DIF F absolute lymphocytes 2.1 10'3/ uL 1.0-4. 0 Not Available [facility] (Lab) [address] [facility], [place], [address], 12/31/2024 13:41:41 12/31/19 25 12/30/2024 CBC W/DIF F absolute monocytes 0.4 10'3/ uL 0.2-1. 0 Not Available [facility] (Lab) [address] [facility], [place], [address], 12/31/2024 13:41:41 12/31/19 25 12/30/2024 CBC W/DIF F absolute eosinophils 0.1 10'3/ uL 0.0-0. 6 Not Available [facility] (Lab) [address] [facility], [place], [address], 12/31/2024 13:41:41 12/31/19 25 12/30/2024 CBC W/DIF F absolute basophils 0.0 10'3/ uL 0.0-0. 3 Not Available [facility] (Lab) [address] [facility], [place], [address], 12/31/2024 13:41:41 12/31/19 25 12/30/2024 CBC W/DIF [...] arciniega book. nm.or g/gen derx Not Available [facility] (Lab) [address] [facility], [place], [address], 12/31/2024 13:41:41 12/31/19 25 12/30/2024 GTT - GESTA ARSH L, 3 HOUR, ACOG glucose, fasting acog 73 mg/dL 70-94 Not Available [facility] (Lab) [address] [place], [address], 12/31/2024 13:41:42 12/31/19 25 12/30/2024 GTT - GESTA ARSH L, 3 HOUR, ACOG glucose, 1 hour acog 166 mg/dL 70-179 Not Available [facility] (Lab) [address] [place], [address], 12/31/2024 13:41:42 12/31/19 25 12/30/2024 GTT - GESTA ARSH L, 3 HOUR, ACOG glucose, 2 hour acog 167 mg/dL 70-154 high Not Available [facility] (Lab) [address] [facility], [place], [address], 12/31/2024 13:41:42 12/31/19 25 12/30/2024 GTT - GESTA ARSH L, 3 HOUR, ACOG glucose, 3 hour acog 137 mg/dL 70-139 Not Available [facility] (Lab) [address] [place], [address], 12/31/2024 13:41:42 12/31/19 25 12/30/2024 CMP(C OMPRE HENSI VE METAB OLIC PANEL ) sodium 137 mmol/ L 133-14 6 Not Available [facility] (Lab) [address] [place], [address], 12/31/2024 13:41:42 12/31/19 25 12/30/2024 CMP(C OMPRE HENSI VE METAB OLIC PANEL ) potassium 4.0 mmol/ L 3.5-5. 1 Not Available [facility] (Lab) [address] [place], [address], 12/31/2024 13:41:42 12/31/19 25 12/30/2024 CMP(C OMPRE HENSI VE METAB OLIC PANEL ) chloride 103 mmol/ L 98-107 Not Available [facility] (Lab) [address] [facility], [place], [address], 12/31/2024 13:41:42 12/31/19 25 12/30/2024 CMP(C OMPRE HENSI VE METAB OLIC PANEL ) carbon dioxide 24 mmol/ L 21-31 Not Available [facility] (Lab) [address] [facility], [place], [address], 12/31/2024 13:41:42 12/31/19 25 12/30/2024 CMP(C OMPRE HENSI VE METAB OLIC PANEL ) anion gap 10 mmol/ L 4-13 Not Available [facility] (Lab) [address] [facility], [place], [address], 12/31/2024 13:41:42 12/31/19 25 12/30/2024 CMP(C OMPRE HENSI VE METAB OLIC PANEL ) blood urea nitrogen 8 mg/dL 7-25 Not Available [facility] (Lab) [address] [facility], [place], [address], 12/31/2024 13:41:42 12/31/19 25 12/30/2024 CMP(C OMPRE HENSI VE METAB OLIC PANEL ) creatinine 0.39 mg/dL 0.60-1 .30 low Not Available [facility] (Lab) [address] [facility], [place], [address], 12/31/2024 13:41:42 12/31/19 25 12/30/2024 CMP(C OMPRE HENSI VE METAB OLIC PANEL ) egfrcr (CKD-epi 2020) >90 mL/mi n/1.7 3_m2 >=60 Not Available [facility] (Lab) [address] [facility], [place], [address], 12/31/2024 13:41:42 12/31/19 25 12/30/2024 CMP(C OMPRE HENSI VE METAB OLIC PANEL ) calcium 8.7 mg/dL 8.3-10 .5 Not Available [facility] (Lab) [address] [facility], [place], [address], 12/31/2024 13:41:42 12/31/19 25 12/30/2024 CMP(C OMPRE HENSI VE METAB OLIC PANEL ) glucose 173 mg/dL 70-100 high Not Available [facility] (Lab) [address] [facility], [place], [address], 12/31/2024 13:41:42 12/31/19 25 12/30/2024 CMP(C OMPRE HENSI VE METAB OLIC PANEL ) protein, total 6.4 g/dL 6.4-8. 3 Not Available [facility] (Lab) [address] [facility], [place], [address], 12/31/2024 13:41:42 12/31/19 25 12/30/2024 CMP(C OMPRE HENSI VE METAB OLIC PANEL ) albumin 3.5 g/dL 3.5-5. 0 Not Available [facility] (Lab) [address] [facility], [place], [address], 12/31/2024 13:41:42 12/31/19 25 12/30/2024 CMP(C OMPRE HENSI VE METAB OLIC PANEL ) ALT 18 units /L 9-43 Not Available [facility] (Lab) [address] [facility], [place], [address], 12/31/2024 13:41:42 12/31/19 25 12/30/2024 CMP(C OMPRE HENSI VE METAB OLIC PANEL ) alkaline phosphatase 96 units /L 34-104 Not Available [facility] (Lab) [address] [facility], [place], [address], 12/31/2024 13:41:42 12/31/19 25 12/30/2024 CMP(C OMPRE HENSI VE METAB OLIC PANEL ) AST 18 units /L 13-39 Not Available [facility] (Lab) [address] [facility], [place], [address], 12/31/2024 13:41:42 12/31/1912/30/2024 CMP(C OMPRE HENSI VE METAB OLIC PANEL ) bilirubin, total 0.5 mg/dL 0.2-1. 2 Not Available [facility] (Lab) [address], [place], [address], 12/31/2024 13:41:42 12/31/19 25 12/30/2024 MIRLANDE TIN / IRON / TRANS MIRLANDE N / TIBC iron 123 ug/dL 40-170 Not Available [facility] (Lab) [address], [place], [address], 12/31/2024 13:41:43 12/31/19 25 12/30/2024 MIRLANDE TIN / IRON / TRANS MIRLANDE N / TIBC transferrin 367 mg/dL 200-36 0 high Not Available [facility] (Lab) [address] [facility], [place], [address], 12/31/2024 13:41:43 12/31/19 25 12/30/2024 MIRLANDE TIN / IRON / TRANS MIRLANDE N / TIBC ferritin 23.6 NG/mL 8.0-25 2.0 Not Available [facility] (Lab) [address], [place], [address], 12/31/2024 13:41:43 12/31/19 25 12/30/2024 MIRLANDE TIN / IRON / TRANS MIRLANDE N / TIBC TIBC 514 ug/dL 250-45 0 high Not Available [facility] (Lab) [address] [facility], [place], [address], 12/31/2024 13:41:43 12/31/19 25 12/30/2024 MIRLANDE TIN / IRON / TRANS MIRLANDE N / TIBC iron saturation 24 % 20-55 Not Available [facility] (Lab) [address], [place], [address], 12/31/2024 13:41:43 12/31/19 25 12/30/2024 BILE ACIDS , TOTAL bile acids, total 3 umol/ L 0-10 Test Perfo rmed by: [facility] [address] [place] [address] Not Available [facility] (Lab) [address], [place], [address], 12/31/2024 13:41:43 08/26/19 25 08/25/2024 US, obste tric, nucha l trans lucen cy No observ ation record ed. [email or web address] [place] 2015 [address], [place], [address], 08/25/2024 15:03:01 08/26/19 25 08/25/2024 US, obste tric, nucha l trans lucen cy No observ ation record ed. [email or web address] Tia [address], [place], [address], 08/26/2024 13:31:04 10/21/19 25 10/20/2024 US, obste tric, 2nd or 3rd trime ster No observ ation record ed. [email or web address] [place] [address], [place], [address], 10/20/2024 15:07:51 10/21/19 25 10/20/2024 US, obste tric, 2nd or 3rd trime ster No observ ation record ed. [email or web address] Tia [address], [place], [address], 12/29/2024 17:15:22 11/18/19 25 11/17/2024 US, obste tric, limit ed No observ ation record ed. [email or web address] [place] [address], [place], [address], 11/17/2024 15:58:58 11/18/1911/17/2024 US, obste tric, limit ed No observ ation record ed. [email or web address] [address], [place], [address], 12/29/2024 17:09:12 01/13/20 25 01/12/2025 US, obste tric, follo w-up No observ ation record ed. [email or web address] [place] [address], [place], [address], 01/12/2025 12:15:18 01/13/2001/12/2025 , obste tric, follo w-up No observ ation record ed. NIRAV [address], [place], [address], 02/15/2025 10:24:47 Result Notes None recorded. Problems Name Problem SNOMED Code Status Onset Date Resolution Date Notes Provider Name and Address Organization Details Recorded Time 27215094 Active 2024 Hilaria schmidt, [facility] 12:41:52 Deliverie s by [id number] Active 2024 TO REPEAT C/S, would like 03/03 SHAWN BACON MD [address], [place], [address], [facility] 12:31:36 Past history of placenta previa 354164867 Active 2024 Jacob Sanders MD [address], [place], [address], [facility] 12:49:56 Bacteriur ia 05306558 Active 2024 Hilaria schmidt, [facility] 13:18:44 Bacteriur ia 80161887 Active 2024 Hilaria schmidt [facility] 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 12:43:49 Problem Notes None recorded. Procedures Surgical History Date Name Laterality Status Provider Name and Address Organization Details Recorded Time Date of Last Pap Smear completed Dia Rocha [facility] 12/29/2024 17:18:43 section completed Hilaria Kessler [facility] 01/21/2023 12:22:47 Imaging Results None [...] Address Organization Details Last Updated DateTime 01/12/2025 35041.849 49 g 38.3 kg/m2 144.78 cm 105/64 mm[Hg] Dia Rocha [facility] 01/12/2025 12:15:11 Social History Question Answer Notes LastModified by Organizat ion Details LastModified Time Tobacco Smoking Status Never Smoker Hilaria Kessler [facility] 01/21/2023 12:22:38 If You Are , [...] ICD10 Code Diagnosis IMO Codes Diagnosis Note [id number] MD Timur BALL [address] [address] 12/15/2024 14:54:05 12/15/2024 15:57:01 Deliveries by [id number] O82 599411 - desires [facility] Gestation period, 28 weeks 64846579 Z3A.28 7446730 [id number] SHAWN BACON MD [place] [address] [address] 12/29/2024 17:08:45 01/01/2025 08:55:23 Itching of skin 518131280 L29.89 [id number] [facility] [id number] [facility] 600[facility] 30 weeks 75870817 Z3A.30 2078003 [id number] SHAWN BACON MD [place] [address] [address] 01/12/2025 11:06:56 01/12/2025 12:11:01 Placenta circumvallata 1688183 O43.113 Z3A.32 6623240 [id number] SHAWN BACON MD [place] [address] [address] 01/12/2025 11:07:09 01/12/2025 12:46:52 [facility]iver[facility] by [id number] O82 721739 [facility] 32 weeks 9495649 Z3A.32 [id number] Health Concerns Section Related Observation LastModified by Organization Detai ls LastModified Time None Recorded Concern Status LastModified by Organization Details LastModified Time None Recorded Payers Encounter Date Sequence Insurance Name Policy Number Policy Guillen Covered Member ID Guillen Member ID Guarantor Name 01/12/2025 1 [facility] [id number] Nepmary C Evans [id number] Nepmary Evans 01/12/2025 2 [place] [facility] Nepmary Evans [id number] Nepmary Evans Notes Date Note Type Note Provider Name and Address Organization Details Recorded Time 01/12/2025 text/html Generic HPI TemplateReported by Patient Diaamita Araizablas [facility] 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; needs partner testing prior to next Past history of placenta previa 08/25/2024 [id number] Deliveries by 08/25/2024 [id number] 004 TO REPEAT C/S, would like 03/03 [...] Weight in lbs Pre/Post Dialysis Refused Weight 163.357199809461 BP Diastolic BP Location Tested BP Systolic [...] Weight in lbs Pre/Post Dialysis Refused Weight 166.107133736701 BP Diastolic BP Location Tested BP Systolic [...] Weight in lbs Pre/Post Dialysis Refused Weight 168.234998715435 BP Diastolic BP Location Tested BP Systolic [...] Weight in lbs Pre/Post Dialysis Refused Weight 172.400568004400 BP Diastolic BP Location Tested BP Systolic [...] Type Weight in lbs Pre/Post Dialysis Refused 178.747566640074 BP Diastolic BP Location Tested BP Systolic [...] Weight in lbs Pre/Post Dialysis Refused Weight 178.658491498974 BP Diastolic BP Location Tested BP Systolic [...] Type Weight in lbs Pre/Post Dialysis Refused 177.881114975789 BP Diastolic BP Location Tested BP Systolic [...] Weight in lbs Pre/Post Dialysis Refused Weight 178.176242270978 BP Diastolic BP Location Tested BP Systolic [...] Weight in lbs Pre/Post Dialysis Refused Weight 183.431778425680 BP Diastolic BP Location Tested BP Systolic [...] Weight in lbs Pre/Post Dialysis Refused Weight 182.787092474422 BP Diastolic BP Location Tested BP Systolic [...] Type Weight in lbs Pre/Post Dialysis Refused 183.945227493952 BP Diastolic BP Location Tested BP Systolic [...]
--- OUTSIDE RECORDS SUMMARY | 2025-03-03 00:35 | XMS_ITS | Continuity of Care Document ---
Author Organization [facility] [place] [place] Address [address] [place] [address] Assessment No assessment recorded. Plan of Treatment [...] [facility] [address], [place], [address], 09/28/2024 23:42:26 09/29/19 25 09/28/2024 [UNIT Y] ANEUP LOIDY NIPT 22Q11.2 microdeletio n LOW RISK <1 in 10,000 normal Not Available [facility] [address], [place], [address], 09/28/2024 23:42:26 09/29/19 25 09/28/2024 [UNIT Y] ANEUP LOIDY NIPT sex chromosome aneuploidy NOT DETECT ED normal Not Available [facility] [address], [place], [address], 09/28/2024 23:42:26 09/29/19 25 09/28/2024 [UNIT Y] ANEUP LOIDY NIPT monosomy X LOW RISK <1 in 10,000 normal Not Available [facility] [address], [place], [address], 09/28/2024 23:42:26 09/29/19 25 09/28/2024 [UNIT Y] ANEUP LOIDY NIPT trisomy 13 LOW RISK <1 in 10,000 normal Not Available [facility] [address], [place], [address], 09/28/2024 23:42:26 09/29/19 25 09/28/2024 [UNIT Y] ANEUP LOIDY NIPT trisomy 18 LOW RISK <1 in 10,000 normal Not Available [facility] [address], [place], [address], 09/28/2024 23:42:26 09/29/19 25 09/28/2024 [UNIT Y] ANEUP LOIDY NIPT trisomy 21 LOW RISK <1 in 10,000 normal Not Available [facility] [address], [place], [address], 09/28/2024 23:42:26 09/29/19 25 09/28/2024 [UNIT Y] ANEUP LOIDY NIPT sex MALE normal Not Available [facility] [address], [place], [address], 09/28/2024 23:42:26 09/29/19 25 09/28/2024 [UNIT Y] ANEUP LOIDY NIPT gestation SINGLE TON normal Not Available [facility] [address], [place], [address], 09/28/2024 23:42:26 09/29/19 25 09/28/2024 [UNIT Y] ANEUP LOIDY NIPT for detailed report, see pdf See PDF normal Not Available [facility] [address], [place], [address], 09/28/2024 23:42:26 10/08/19 25 10/07/2024 [UNIT Y] CHARLEEN Mcrae fraction 5.7% normal Not Available [facility] [address], [place], [address], 10/07/2024 00:49:52 10/08/19 25 10/07/2024 [UNIT Y] CHARLEEN CATHIE TYSON N alpha-thalas semia nipt result LOW RISK 1 in 2,300 ( patern al ethnic ity); 1 in 14,000 (Gener al popula tion) normal Not Available [facility] [address], [place], [address], 10/07/2024 00:49:52 10/08/19 25 10/07/2024 [UNIT Y] CHARLEEN TYSON N spinal muscular atrophy nipt result LOW RISK 1 in 4000 normal Not Available [facility] [address], [place], [address], 10/07/2024 00:49:52 10/08/19 25 10/07/2024 [UNIT Y] CHARLEEN Mcrae sickle cell disease/beta -thalassemia /hemoglobino pathies carrier screen NEGATI VE normal Not Available [facility] [address], [place], [address], 10/07/2024 00:49:52 10/08/19 25 10/07/2024 [UNIT Y] CHARLEEN TYSON N alpha-thalas semia carrier screen POSITI VE Silent tanvi r; aa/a- abnormal Not Available [facility] [address], [place], [address], 10/07/2024 00:49:52 10/08/19 25 10/07/2024 [UNIT Y] CHARLEEN TYSON N cystic fibrosis carrier screen NEGATI VE normal Not Available [facility] [address], [place], [address], 10/07/2024 00:49:52 10/08/19 25 10/07/2024 [UNIT Y] CHARLEEN Mcrae spinal muscular atrophy carrier screen POSITI VE 1 SMN1 copy abnormal Not Available [facility] [address], [place], [address], 10/07/2024 00:49:52 10/08/19 25 10/07/2024 [UNIT Y] CHARLEEN Mcrae for detailed report, see pdf See PDF normal Not Available [facility] [address], [place], [address], 10/07/2024 00:49:52 08/26/19 25 08/25/2024 CBC W/DIF F WBC 8.4 10'3/ uL 3.5-10 .5 Not Available [facility] (Lab) [address], [place], [address], 08/26/2024 12:03:47 08/26/19 25 08/25/2024 CBC W/DIF F RBC 4.46 10'6/ uL (based on docume nted legal sex) 3.80-5 .20 Not Available [facility] (Lab) [address] [place], [address], 08/26/2024 12:03:47 08/26/19 25 08/25/2024 CBC W/DIF F HGB 12.3 g/dL (based on docume nted legal sex) 11.6-1 5.4 Not Available [facility] (Lab) [address] [place], [address], 08/26/2024 12:03:47 08/26/19 25 08/25/2024 CBC W/DIF F HCT 37.8 % (based on docume nted legal sex) 34.0-4 5.0 Not Available [facility] (Lab) [address], [place], [address], 08/26/2024 12:03:47 08/26/19 25 08/25/2024 CBC W/DIF F MCV 84.8 fL 80.0-9 9.0 Not Available [facility] (Lab) [address], [place], [address], 08/26/2024 12:03:47 08/26/19 25 08/25/2024 CBC W/DIF F MCH 27.6 pg 27.0-3 4.0 Not Available [facility] (Lab) [address], [place], [address], 08/26/2024 12:03:47 08/26/19 25 08/25/2024 CBC W/DIF F MCHC 32.5 g/dL 32.0-3 5.5 Not Available [facility] (Lab) [address], [place], [address], 08/26/2024 12:03:47 08/26/19 25 08/25/2024 CBC W/DIF F RDW 13.2 % 11.0-1 5.0 Not Available [facility] (Lab) [address], [place], [address], 08/26/2024 12:03:47 08/26/19 25 08/25/2024 CBC W/DIF F plt 254 10'3/ uL 150-40 0 Not Available [facility] (Lab) [address], [place], [address], 08/26/2024 12:03:47 08/26/19 25 08/25/2024 CBC W/DIF F MPV 10.2 fL 8.8-12 .1 Not Available [facility] (Lab) [address], [place], [address], 08/26/2024 12:03:47 08/26/19 25 08/25/2024 CBC W/DIF F NRBC's 0.0 % 0.0 Not Available [facility] (Lab) [address], [place], [address], 08/26/2024 12:03:47 08/26/19 25 08/25/2024 CBC W/DIF F absolute NRBCs 0.0 10'3/ uL no refere nce range establ ished Not Available [facility] (Lab) [address], [place], [address], 08/26/2024 12:03:47 08/26/19 25 08/25/2024 CBC W/DIF F neutrophils 67.0 % 34.0-7 3.0 Not Available [facility] (Lab) [address], [place], [address], 08/26/2024 12:03:47 08/26/19 25 08/25/2024 CBC W/DIF F lymphocytes 24.5 % 15.0-5 0.0 Not Available [facility] (Lab) [address], [place], [address], 08/26/2024 12:03:47 08/26/19 25 08/25/2024 CBC W/DIF F monocytes 6.3 % 1.0-15 .0 Not Available [facility] (Lab) [address], [place], [address], 08/26/2024 12:03:47 08/26/19 25 08/25/2024 CBC W/DIF F eosinophils 1.2 % 0.0-8. 0 Not Available [facility] (Lab) [address] [place], [address], 08/26/2024 12:03:47 08/26/19 25 08/25/2024 CBC W/DIF F basophils 0.2 % 0.0-2. 0 Not Available [facility] (Lab) [address], [place], [address], 08/26/2024 12:03:47 08/26/19 25 08/25/2024 CBC W/DIF [...] separ ately if prese nt. Not Available [facility] (Lab) [address], [place], [address], 08/26/2024 12:03:47 08/26/19 25 08/25/2024 CBC W/DIF F absolute neutrophils 5.6 10'3/ uL 1.5-8. 0 Not Available [facility] (Lab) [address], [place], [address], 08/26/2024 12:03:47 08/26/19 25 08/25/2024 CBC W/DIF F absolute lymphocytes 2.1 10'3/ uL 1.0-4. 0 Not Available [facility] (Lab) [address], [place], [address], 08/26/2024 12:03:47 08/26/19 25 08/25/2024 CBC W/DIF F absolute monocytes 0.5 10'3/ uL 0.2-1. 0 Not Available [facility] (Lab) [address], [place], [address], 08/26/2024 12:03:47 08/26/19 25 08/25/2024 CBC W/DIF F absolute eosinophils 0.1 10'3/ uL 0.0-0. 6 Not Available [facility] (Lab) [address], [place], [address], 08/26/2024 12:03:47 08/26/19 25 08/25/2024 CBC W/DIF F absolute basophils 0.0 10'3/ uL 0.0-0. 3 Not Available [facility] (Lab) [address] [place], [address], 08/26/2024 12:03:47 08/26/19 25 08/25/2024 CBC W/DIF F absolute immature granulocytes 0.1 10'3/ uL 0.00-0 .10 Refer ence range s for nonbi nary/ inter sex or unspe cifie d gende r patie nts have not been estab lishe d. [facility]as [facility] for range s estab lishe d for cisge nder patie nts and evalu ate in the clini figueroa sarahi xt of the indiv idual patie nt: https ://danny arciniega book. nm.or g/gen derx Not Available [facility] (Lab) [address], [place], [address], 08/26/2024 12:03:47 08/26/1908/25/2024 TYPE/ RH/SC REEN ABO/Rh type O POS Not Available [facility] (Lab) [address] [place], [address], 08/26/2024 12:03:48 08/26/19 25 08/25/2024 TYPE/ RH/SC REEN antibody screen NEG Not Available [facility] (Lab) [address], [place], [address], 08/26/2024 12:03:48 08/26/19 25 08/25/2024 TYPE/ RH/SC REEN exp date 2024 23:59 Not Available [facility] (Lab) [address] [place], [address], 08/26/2024 12:03:48 08/26/19 25 08/25/2024 HEPAT ITIS B SURFA CE ANTIG EN hepatitis B surface antigen Non-re active non-re active This assay was perfo rmed using [employer] ratio n reage nts and test kits. Value s obtai ellie with other assay metho ds or kits canno t be used inter smith eably . Not Available [facility] (Lab) [address], [place], [address], 08/26/2024 12:03:48 08/26/19 25 08/25/2024 HEPAT ITIS C ANTIB JAMEEL SCREE N, REFLE X TO CONFI RMATI ON hepatitis C antibody Non-re active non-re active Antib odies to HCV Not Detec lina, does not exclu de the possi bilit y of expos ure to HCV. Not Available [facility] (Lab) [address] [place], [address], 08/26/2024 12:03:49 08/26/19 25 08/25/2024 TSH, REFLE X FREE T4 TSH 1.44 uIU/m L 0.30-5 .33 Not Available [facility] (Lab) [address] [place], [address], 08/26/2024 12:03:49 08/26/19 25 08/25/2024 RUBEL LA IGG ANTIB JAMEEL, QUANT rubella antibodies, IgG Reacti ve reacti ve Not Available [facility] (Lab) [address] [place], [address], 08/26/2024 12:03:50 08/26/19 25 08/25/2024 RUBEL LA IGG ANTIB JAMEEL, QUANT rubella antibodies, IgG quant 242.9 IU/mL >=10 Non-r eacti ve (Non- Immun e) <10 IU/mL React veronica (Immu ne) > or = 10 IU/mL Not Available [facility] (Lab) [address] [place], [address], 08/26/2024 12:03:50 08/26/19 25 08/25/2024 HEMOG LOBIN [...] s consi stent ly > 8%. <5.7% Larue l 5.7 - 6.4% Incre ased risk for diabe tracey >=6.5 % Diagn ostic of diabe tracey <7.0% Goal of thera py >8.0% Actio n sugge sted Not Available [facility] (Lab) [address], [place], [address], 08/26/2024 12:03:50 08/26/19 25 08/25/2024 RPR SCREE N, REFLE X TITER /CONF IRMAT ION RPR qualitative Nonrea ctive nonrea ctive Not Available [facility] (Lab) [address], [place], [address], 08/26/2024 12:03:51 08/26/19 25 08/25/2024 IMAGE GUIDE [...] as clini lala summers nted. Not Available [facility] (Lab) [address], [place], [address], 08/27/2024 04:01:28 08/26/19 25 08/25/2024 CULTU RE: URINE result report SEE RESULT S BELOW abnormal Test: Cultu re: Urine Speci men Sourc e: Urine Voide d Speci men Type: Urine Speci men Date: 1442 Resul t Date: 257 Resul t Statu s: Final resul t Abnor mal: Yes Resul ting Lab: [facility] [address] [facility] [address] Tel: CULTU RE ----- ----- ----- --- [...] lab withi n 5 days. Not Available [facility] (Lab) [address] , [place], [address], 08/27/2024 04:01:29 09/23/1909/22/2024 HIV 1/2 ANTIG EN/AN TIBOD Y, REFLE X CONFI RMATI ON HIV antigen/anti body Nonrea ctive nonrea ctive Phleb [facility] on 08/25 . Do not charg e for venip unctu re. HIV-1 antig en and HIV-1 /HIV- 2 antib odies were not detec lina. No labor atory evide nce of HIV infec tion. Not Available [facility] (Lab) [address] , [place], [address], 09/23/2024 04:49:59 12/16/1912/15/2024 HEMOG LOBIN (HGB) HGB 11.8 g/dL (based on docume nted legal sex) 11.6-1 5.4 Not Available [facility] (Lab) [address], [place], [address], 12/16/2024 14:27:51 12/16/19 25 12/15/2024 HEMAT OCRIT (HCT) HCT 37.1 % (based on docume nted legal sex) 34.0-4 5.0 Not Available [facility] (Lab) [address], [place], [address], 12/16/2024 14:27:51 12/16/19 25 12/15/2024 GTT - GESTA ARSH L JAH N, ACOG OB glucose, 1 hour screen 173 mg/dL 70-135 high Not Available [facility] (Lab) [address], [place], [address], 12/16/2024 14:27:52 12/16/19 25 12/15/2024 HIV 1/2 ANTIG EN/AN TIBOD Y, REFLE X CONFI RMATI ON HIV antigen/anti body Nonrea ctive nonrea ctive HIV-1 antig en and HIV-1 /HIV- 2 antib odies were not detec lina. No labor atory evide nce of HIV infec tion. Not Available [facility] (Lab) [address], [place], [address], 12/16/2024 14:27:52 12/16/1912/15/2024 RPR SCREE N, REFLE X TITER /CONF IRMAT ION RPR qualitative Nonrea ctive nonrea ctive Not Available [facility] (Lab) [address], [place], [address], 12/16/2024 14:27:53 12/31/19 25 12/30/2024 CBC W/DIF F WBC 8.5 10'3/ uL 3.5-10 .5 Not Available [facility] (Lab) [address] , [place], [address], 12/31/2024 13:41:41 12/31/19 25 12/30/2024 CBC W/DIF F RBC 4.47 10'6/ uL (based on docume nted legal sex) 3.80-5 .20 Not Available [facility] (Lab) [address], [place], [address], 12/31/2024 13:41:41 12/31/19 25 12/30/2024 CBC W/DIF F HGB 12.5 g/dL (based on docume nted legal sex) 11.6-1 5.4 Not Available [facility] (Lab) [address], [place], [address], 12/31/2024 13:41:41 12/31/19 25 12/30/2024 CBC W/DIF F HCT 39.4 % (based on docume nted legal sex) 34.0-4 5.0 Not Available [facility] (Lab) [address], [place], [address], 12/31/2024 13:41:41 12/31/19 25 12/30/2024 CBC W/DIF F MCV 88.1 fL 80.0-9 9.0 Not Available [facility] (Lab) [address], [place], [address], 12/31/2024 13:41:41 12/31/19 25 12/30/2024 CBC W/DIF F MCH 28.0 pg 27.0-3 4.0 Not Available [facility] (Lab) [address], [place], [address], 12/31/2024 13:41:41 12/31/19 25 12/30/2024 CBC W/DIF F MCHC 31.7 g/dL 32.0-3 5.5 low Not Available [facility] (Lab) [address], [place], [address], 12/31/2024 13:41:41 12/31/19 25 12/30/2024 CBC W/DIF F RDW 13.8 % 11.0-1 5.0 Not Available [facility] (Lab) [address], [place], [address], 12/31/2024 13:41:41 12/31/19 25 12/30/2024 CBC W/DIF F plt 209 10'3/ uL 150-40 0 Not Available [facility] (Lab) [address], [place], [address], 12/31/2024 13:41:41 12/31/19 25 12/30/2024 CBC W/DIF F MPV 10.3 fL 8.8-12 .1 Not Available [facility] (Lab) [address], [place], [address], 12/31/2024 13:41:41 12/31/19 25 12/30/2024 CBC W/DIF F NRBC's 0.0 % 0.0 Not Available [facility] (Lab) [address], [place], [address], 12/31/2024 13:41:41 12/31/19 25 12/30/2024 CBC W/DIF F absolute NRBCs 0.0 10'3/ uL no refere nce range establ ished Not Available [facility] (Lab) [address], [place], [address], 12/31/2024 13:41:41 12/31/19 25 12/30/2024 CBC W/DIF F neutrophils 69.4 % 34.0-7 3.0 Not Available [facility] (Lab) [address], [place], [address], 12/31/2024 13:41:41 12/31/19 25 12/30/2024 CBC W/DIF F lymphocytes 24.5 % 15.0-5 0.0 Not Available [facility] (Lab) [address], [place], [address], 12/31/2024 13:41:41 12/31/19 25 12/30/2024 CBC W/DIF F monocytes 4.5 % 1.0-15 .0 Not Available [facility] (Lab) [address], [place], [address], 12/31/2024 13:41:41 12/31/19 25 12/30/2024 CBC W/DIF F eosinophils 0.6 % 0.0-8. 0 Not Available [facility] (Lab) [address], [place], [address], 12/31/2024 13:41:41 12/31/19 25 12/30/2024 CBC W/DIF F basophils 0.4 % 0.0-2. 0 Not Available [facility] (Lab) [address], [place], [address], 12/31/2024 13:41:41 12/31/19 25 12/30/2024 CBC W/DIF [...] separ ately if prese nt. Not Available [facility] (Lab) [address], [place], [address], 12/31/2024 13:41:41 12/31/19 25 12/30/2024 CBC W/DIF F absolute neutrophils 5.9 10'3/ uL 1.5-8. 0 Not Available [facility] (Lab) [address], [place], [address], 12/31/2024 13:41:41 12/31/19 25 12/30/2024 CBC W/DIF F absolute lymphocytes 2.1 10'3/ uL 1.0-4. 0 Not Available [facility] (Lab) [address], [place], [address], 12/31/2024 13:41:41 12/31/19 25 12/30/2024 CBC W/DIF F absolute monocytes 0.4 10'3/ uL 0.2-1. 0 Not Available [facility] (Lab) [address], [place], [address], 12/31/2024 13:41:41 12/31/19 25 12/30/2024 CBC W/DIF F absolute eosinophils 0.1 10'3/ uL 0.0-0. 6 Not Available [facility] (Lab) [address], [place], [address], 12/31/2024 13:41:41 12/31/19 25 12/30/2024 CBC W/DIF F absolute basophils 0.0 10'3/ uL 0.0-0. 3 Not Available [facility] (Lab) [address], [place], [address], 12/31/2024 13:41:41 12/31/19 25 12/30/2024 CBC W/DIF [...] arciniega book. nm.or g/gen derx Not Available [facility] (Lab) [address], [place], [address], 12/31/2024 13:41:41 12/31/19 25 12/30/2024 GTT - GESTA ARSH L, 3 HOUR, ACOG glucose, fasting acog 73 mg/dL 70-94 Not Available [facility] (Lab) [address], [place], [address], 12/31/2024 13:41:42 12/31/19 25 12/30/2024 GTT - GESTA ARSH L, 3 HOUR, ACOG glucose, 1 hour acog 166 mg/dL 70-179 Not Available [facility] (Lab) [address], [place], [address], 12/31/2024 13:41:42 12/31/19 25 12/30/2024 GTT - GESTA ARSH L, 3 HOUR, ACOG glucose, 2 hour acog 167 mg/dL 70-154 high Not Available [facility] (Lab) [address], [place], [address], 12/31/2024 13:41:42 12/31/19 25 12/30/2024 GTT - GESTA ARSH L, 3 HOUR, ACOG glucose, 3 hour acog 137 mg/dL 70-139 Not Available [facility] (Lab) [address], [place], [address], 12/31/2024 13:41:42 12/31/19 25 12/30/2024 CMP(C OMPRE HENSI VE METAB OLIC PANEL ) sodium 137 mmol/ L 133-14 6 Not Available [facility] (Lab) [address] [place], [address], 12/31/2024 13:41:42 12/31/19 25 12/30/2024 CMP(C OMPRE HENSI VE METAB OLIC PANEL ) potassium 4.0 mmol/ L 3.5-5. 1 Not Available [facility] (Lab) [address] [place], [address], 12/31/2024 13:41:42 12/31/19 25 12/30/2024 CMP(C OMPRE HENSI VE METAB OLIC PANEL ) chloride 103 mmol/ L 98-107 Not Available [facility] (Lab) [address], [place], [address], 12/31/2024 13:41:42 12/31/19 25 12/30/2024 CMP(C OMPRE HENSI VE METAB OLIC PANEL ) carbon dioxide 24 mmol/ L 21-31 Not Available [facility] (Lab) [address], [place], [address], 12/31/2024 13:41:42 12/31/19 25 12/30/2024 CMP(C OMPRE HENSI VE METAB OLIC PANEL ) anion gap 10 mmol/ L 4-13 Not Available [facility] (Lab) [address], [place], [address], 12/31/2024 13:41:42 12/31/19 25 12/30/2024 CMP(C OMPRE HENSI VE METAB OLIC PANEL ) blood urea nitrogen 8 mg/dL 7-25 Not Available [facility] (Lab) [address], [place], [address], 12/31/2024 13:41:42 12/31/19 25 12/30/2024 CMP(C OMPRE HENSI VE METAB OLIC PANEL ) creatinine 0.39 mg/dL 0.60-1 .30 low Not Available [facility] (Lab) [address], [place], [address], 12/31/2024 13:41:42 12/31/19 25 12/30/2024 CMP(C OMPRE HENSI VE METAB OLIC PANEL ) egfrcr (CKD-epi 2020) >90 mL/mi n/1.7 3_m2 >=60 Not Available [facility] (Lab) [address], [place], [address], 12/31/2024 13:41:42 12/31/19 25 12/30/2024 CMP(C OMPRE HENSI VE METAB OLIC PANEL ) calcium 8.7 mg/dL 8.3-10 .5 Not Available [facility] (Lab) [address], [place], [address], 12/31/2024 13:41:42 12/31/19 25 12/30/2024 CMP(C OMPRE HENSI VE METAB OLIC PANEL ) glucose 173 mg/dL 70-100 high Not Available [facility] (Lab) [address], [place], [address], 12/31/2024 13:41:42 12/31/19 25 12/30/2024 CMP(C OMPRE HENSI VE METAB OLIC PANEL ) protein, total 6.4 g/dL 6.4-8. 3 Not Available [facility] (Lab) [address], [place], [address], 12/31/2024 13:41:42 12/31/19 25 12/30/2024 CMP(C OMPRE HENSI VE METAB OLIC PANEL ) albumin 3.5 g/dL 3.5-5. 0 Not Available [facility] (Lab) [address], [place], [address], 12/31/2024 13:41:42 12/31/19 25 12/30/2024 CMP(C OMPRE HENSI VE METAB OLIC PANEL ) ALT 18 units /L 9-43 Not Available [facility] (Lab) [address], [place], [address], 12/31/2024 13:41:42 12/31/19 25 12/30/2024 CMP(C OMPRE HENSI VE METAB OLIC PANEL ) alkaline phosphatase 96 units /L 34-104 Not Available [facility] (Lab) [address], [place], [address], 12/31/2024 13:41:42 12/31/19 25 12/30/2024 CMP(C OMPRE HENSI VE METAB OLIC PANEL ) AST 18 units /L 13-39 Not Available [facility] (Lab) [address], [place], [address], 12/31/2024 13:41:42 12/31/19 25 12/30/2024 CMP(C OMPRE HENSI VE METAB OLIC PANEL ) bilirubin, total 0.5 mg/dL 0.2-1. 2 Not Available [facility] (Lab) [address], [place], [address], 12/31/2024 13:41:42 12/31/19 25 12/30/2024 MIRLANDE TIN / IRON / TRANS MIRLANDE N / TIBC iron 123 ug/dL 40-170 Not Available [facility] (Lab) [address], [place], [address], 12/31/2024 13:41:43 12/31/19 25 12/30/2024 MIRLANDE TIN / IRON / TRANS MIRLANDE N / TIBC transferrin 367 mg/dL 200-36 0 high Not Available [facility] (Lab) [address], [place], [address], 12/31/2024 13:41:43 12/31/19 25 12/30/2024 MIRLANDE TIN / IRON / TRANS MIRLANDE N / TIBC ferritin 23.6 NG/mL 8.0-25 2.0 Not Available [facility] (Lab) [address], [place], [address], 12/31/2024 13:41:43 12/31/19 25 12/30/2024 MIRLANDE TIN / IRON / TRANS MIRLANDE N / TIBC TIBC 514 ug/dL 250-45 0 high Not Available [facility] (Lab) [address], [place], [address], 12/31/2024 13:41:43 12/31/19 25 12/30/2024 MIRLANDE TIN / IRON / TRANS MIRLANDE N / TIBC iron saturation 24 % 20-55 Not Available [facility] (Lab) [address], [place], [address], 12/31/2024 13:41:43 12/31/19 25 12/30/2024 BILE ACIDS , TOTAL bile acids, total 3 umol/ L 0-10 Test Perfo rmed by: [facility]ask[facility]z [facility] [address] [place] [address] Not Available [facility] (Lab) [address], [place], [address], 12/31/2024 13:41:43 02/10/20 25 02/09/2025 CULTU RE: [...] Resul ting Lab: [facility] [address] [facility] [address] Tel: CULTU RE ----- ----- ----- --- [...] indu for these drugs . Not Available [facility] (Lab) [address], [place], [address], 02/13/2025 16:13:50 08/26/19 25 08/25/2024 US, obste tric, nucha l trans lucen cy No observ ation record ed. [email or web address] [place] [address], [place], [address], 08/25/2024 15:03:01 08/26/19 25 08/25/2024 US, obste tric, nucha l trans lucen cy No observ ation record ed. [email or web address] [address], [place], [address], 08/26/2024 13:31:04 10/21/19 25 10/20/2024 [place], obste tric, 2nd or 3rd trime ster No observ ation record ed. [email or web address] [place] [address], [place], [address], 10/20/2024 15:07:51 10/21/19 25 10/20/2024 US, obste tric, 2nd or 3rd trime ster No observ ation record ed. [email or web address] [address], [place], [address], 12/29/2024 17:15:22 11/18/19 25 11/17/2024 US, obste tric, limit ed No observ ation record ed. [email or web address] [place] [address], [place], [address], 11/17/2024 15:58:58 11/18/19 25 11/17/2024 US, obste tric, limit ed No observ ation record ed. Tia [address], [place], [address], 12/29/2024 17:09:12 01/13/20 25 01/12/2025 US, obste tric, follo w-up No observ ation record ed. [email or web address] [place] [address], [place], [address], 01/12/2025 12:15:18 01/13/20 25 01/12/2025 US, obste tric, follo w-up No observ ation record ed. NIRAV [facility] [address], [address], 02/15/2025 10:24:47 Result Notes None recorded. Problems Name Problem SNOMED Code Status Onset Date Resolution Date Notes Provider Name and Address Organization Details Recorded Time 00818458 Active 2024 Hilaria Kessler [facility] 12:41:52 Deliverie s by 680489371 Active 2024 TO REPEAT C/S, would like 03/03 SHWAN BACON MD [address], [place], [address], [facility] 12:31:36 Past history of placenta previa 114058790 Active 2024 Jacob Sanders MD [address], [place], [address], [facility] 5 12:49:56 Bacteriur ia 88700651 Active 2024 Hilaria [facility] 5 13:18:44 Bacteriur ia 17367860 Active 2024 [facility] 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 12:43:49 Problem Notes None recorded. Procedures Surgical History Date Name Laterality Status Provider Name and Address Organization Details Recorded Time Date of Last Pap Smear completed Dia Rocha [facility] 12/29/2024 17:18:43 section completed Hilaria Kessler [facility] 01/21/2023 12:22:47 Imaging Results None [...] and Address Organization Details Last Updated DateTime 02/16/2025 144.78 cm 39.4 kg/m2 68838.81 g 122/79 mm[Hg] Dia Rocha [facility] 02/16/2025 15:04:00 Social History Question Answer Notes LastModified by Organizat ion Details LastModified Time Tobacco Smoking Status Never Smoker [facility] 01/21/2023 12:22:38 If You Are , [...] ICD10 Code Diagnosis IMO Codes Diagnosis Note [id number] SHAWN BACON MD [place] [address],[place] [address] 01/27/2025 16:23:34 01/27/2025 17:02:24 Bacteriuria 98871621 O99.820 [id number] Deliveries by [id number] O82 [id number] - desires [facility] [id number] SHAWN BACON MD [place] [address],[place] [address] 02/09/2025 15:07:38 02/09/2025 15:56:09 Gestation period, 36 weeks 76528768 Z3A.36 [id number] Deliveries by [id number] O82 [id number] - desires [facility] [id number] SHAWN BACON MD [place] [address],[place] [address] 02/16/2025 14:49:42 02/16/2025 15:24:08 Deliveries by [id number] O82 [id number] - desires [facility] Bacteriuria 92430695 O99 .820 [id number] Gestation period, 37 weeks 95413906 Z3A.37 [id number] - continue [facility] Concerns Section Related Observation LastModified by Organization Detai ls LastModified Time None Recorded Concern Status LastModified by Organization Details LastModified Time None Recorded Payers Encounter Date Sequence Insurance Name Policy Number Policy Guillen Covered Member ID Guillen Member ID Guarantor Name 02/16/2025 1 [facility] [id number] Lesley Evans [id number] Lesley Evans 02/16/2025 2 [place]: [facility] Lesley Evans [id number] Lesley Evans Notes Date Note Type Note Provider Name and Address Organization Details Recorded Time 02/16/2025 text/html Generic HPI TemplateReported by Patient SHAWN BACON MD [address], [place], [address], [place] [facility] 02/16/2025 15:22:02 OBGyn Episode Ob Episode Information Episode Created Date Number of Fetuses Patient Bloodtype Patient rh Status Prepregnancy Weight lbs Domestic Partner Domestic Partner Phone Father Name Wire Winding Machine Tender Status 08/26/19 1 O Positive 162 Eddartemio Boone s OPEN Fetus Data First Name Last Name Admitted to NICU Weight (g) Sex Living Outcome Pediatric Complications Fetus ID Race Codes Race Delivery Type [id number] Problems Problem Notes Problem Name Start Date End Date Resolution Snomed Code Not e Bacteriuria 09/04/2024 63633061 Genetic disorder carrier 10/20/2024 75741538 + 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 RTC 4 weeks. Flowsheet Date 10/20/2024 Cuveas Score Blood Edema Fundus Height Fundus Units [...] Weight in lbs Pre/Post Dialysis Refused Weight 168.293198251174 BP Diastolic BP Location Tested BP Systolic [...] Weight in lbs Pre/Post Dialysis Refused Weight 172.085145859183 BP Diastolic BP Location Tested BP Systolic [...] Type Weight in lbs Pre/Post Dialysis Refused 178.760439594448 BP Diastolic BP Location Tested BP Systolic [...] Weight in lbs Pre/Post Dialysis Refused Weight 178.471693266393 BP Diastolic BP Location Tested BP Systolic [...] Type Weight in lbs Pre/Post Dialysis Refused 177.690608515568 BP Diastolic BP Location Tested BP Systolic [...] Weight in lbs Pre/Post Dialysis Refused Weight 178.470390126821 BP Diastolic BP Location Tested BP Systolic BP Type 69 L arm 118 sitting Fetus Heart Rate Present Fetus Movement A Yes Comments Good movement. No cram ping or bleeding. Discussed day of c section. Patient would like to start leave at 36 weeks due to very physical job. Will send [facility] paperwork to the office. Received tdap, RSV and flu vaccines. Preadmission scheduled. RTC 2 weeks. Flowsheet Date 02/09/2025 Cuevas Score Blood Edema Fundus Height Fundus Units Glucose Ketones Leukocytes Nitrite Labor Signs Protein Cervic Dilation Cervic Effacement Cervic Station Type Weight in lbs Pre/Post Dialysis Refused Weight 183.271193242805 BP Diastolic BP Location Tested BP Systolic [...] Weight in lbs Pre/Post Dialysis Refused Weight 182.299529259793 BP Diastolic BP Location Tested BP Systolic [...] Type Weight in lbs Pre/Post Dialysis Refused 183.650338348025 BP Diastolic BP Location Tested BP Systolic [...]
--- OUTSIDE RECORDS SUMMARY | 2025-03-03 00:35 | XMS_ITS | Continuity of Care Document ---
Author Organization [facility] [place] [place] Address [address] [place] [address] Assessment No assessment recorded. Plan of Treatment [...] Billio ntoone [address], [place], [address], 09/28/2024 23:42:26 09/29/19 25 09/28/2024 [UNIT Y] ANEUP LOIDY NIPT 22Q11.2 microdeletio n LOW RISK <1 in 10,000 normal Not Available Gi[facility]any [facility] [address], [place], [address], 09/28/2024 23:42:26 09/29/19 25 09/28/2024 [UNIT Y] ANEUP LOIDY NIPT sex chromosome aneuploidy NOT DETECT ED normal Not Available [facility] [address], [place], [address], 09/28/2024 23:42:26 09/29/19 25 09/28/2024 [UNIT Y] ANEUP LOIDY NIPT monosomy X LOW RISK <1 in 10,000 normal Not Available [facility] [address], [place], [address], 09/28/2024 23:42:26 09/29/19 25 09/28/2024 [UNIT Y] ANEUP LOIDY NIPT trisomy 13 LOW RISK <1 in 10,000 normal Not Available [facility] [address], [place], [address], 09/28/2024 23:42:26 09/29/19 25 09/28/2024 [UNIT Y] ANEUP LOIDY NIPT trisomy 18 LOW RISK <1 in 10,000 normal Not Available [facility] [address], [place], [address], 09/28/2024 23:42:26 09/29/19 25 09/28/2024 [UNIT Y] ANEUP LOIDY NIPT trisomy 21 LOW RISK <1 in 10,000 normal Not Available [facility] [address], [place], [address], 09/28/2024 23:42:26 09/29/19 25 09/28/2024 [UNIT Y] ANEUP LOIDY NIPT sex MALE normal Not Available [facility] [address], [place], [address], 09/28/2024 23:42:26 09/29/19 25 09/28/2024 [UNIT Y] ANEUP LOIDY NIPT gestation SINGLE TON normal Not Available [facility] [address], [place], [address], 09/28/2024 23:42:26 09/29/19 25 09/28/2024 [UNIT Y] ANEUP LOIDY NIPT for detailed report, see pdf See PDF normal Not Available [facility] [address], [place], [address], 09/28/2024 23:42:26 10/08/19 25 10/07/2024 [UNIT Y] CHARLEEN Mcrae fraction 5.7% normal Not Available [facility] n[facility] [address], [place], [address], 10/07/2024 00:49:52 10/08/19 25 10/07/2024 [UNIT Y] CHARLEEN CATHIE TYSON N alpha-thalas semia nipt result LOW RISK 1 in 2,300 ( patern al ethnic ity); 1 in 14,000 (Gener al popula tion) normal Not Available [facility] [address], [place], [address], 10/07/2024 00:49:52 10/08/19 25 10/07/2024 [UNIT Y] CHARLEEN TYSON N spinal muscular atrophy nipt result LOW RISK 1 in 4000 normal Not Available [facility] [address], [place], [address], 10/07/2024 00:49:52 10/08/19 25 10/07/2024 [UNIT Y] CHARLEEN Mcrae sickle cell disease/beta -thalassemia /hemoglobino pathies carrier screen NEGATI VE normal Not Available [facility] [address], [place], [address], 10/07/2024 00:49:52 10/08/19 25 10/07/2024 [UNIT Y] CHARLEEN TYSON N alpha-thalas semia carrier screen POSITI VE Silent tanvi r; aa/a- abnormal Not Available [facility] [address], [place], [address], 10/07/2024 00:49:52 10/08/19 25 10/07/2024 [UNIT Y] CHARLEEN TYSON N cystic fibrosis carrier screen NEGATI VE normal Not Available [facility] [address], [place], [address], 10/07/2024 00:49:52 10/08/19 25 10/07/2024 [UNIT Y] CHARLEEN Mcrae spinal muscular atrophy carrier screen POSITI VE 1 SMN1 copy abnormal Not Available [facility] [address], [place], [address], 10/07/2024 00:49:52 10/08/19 25 10/07/2024 [UNIT Y] CHARLEEN Mcrae for detailed report, see pdf See PDF normal Not Available [facility] [address], [place], [address], 10/07/2024 00:49:52 08/26/19 25 08/25/2024 CBC W/DIF F WBC 8.4 10'3/ uL 3.5-[address] [facility] (Lab) [address], [place], [address], 08/26/2024 12:03:47 08/26/19 25 08/25/2024 CBC W/DIF F RBC 4.46 10'6/ uL (based on docume nted legal sex) 3.80-[address] [facility] (Lab) [address] [place], [address], 08/26/2024 12:03:47 08/26/19 25 08/25/2024 CBC W/DIF F HGB 12.3 g/dL (based on docume nted legal sex) 11.6-[address] [facility] (Lab) [address] [place], [address], 08/26/2024 12:03:47 08/26/19 25 08/25/2024 CBC W/DIF F HCT 37.8 % (based on docume nted legal sex) 34.0-[address] [facility] (Lab) [address], [place], [address], 08/26/2024 12:03:47 08/26/19 25 08/25/2024 CBC W/DIF F MCV 84.8 fL 80.0-[address] [facility] (Lab) [address], [place], [address], 08/26/2024 12:03:47 08/26/19 25 08/25/2024 CBC W/DIF F MCH 27.6 pg 27.0-[address] [facility] (Lab) [address], [place], [address], 08/26/2024 12:03:47 08/26/19 25 08/25/2024 CBC W/DIF F MCHC 32.5 g/dL 32.0-[address] [facility] (Lab) [address], [place], [address], 08/26/2024 12:03:47 08/26/19 25 08/25/2024 CBC W/DIF F RDW 13.2 % 11.0-[address] [facility] (Lab) [address], [place], [address], 08/26/2024 12:03:47 08/26/19 25 08/25/2024 CBC W/DIF F plt 254 10'3/ uL 150-[address] [facility] (Lab) [address], [place], [address], 08/26/2024 12:03:47 08/26/19 25 08/25/2024 CBC W/DIF F MPV 10.2 fL 8.8-[address] [facility] (Lab) [address], [place], [address], 08/26/2024 12:03:47 08/26/19 25 08/25/2024 CBC W/DIF F NRBC's 0.0 % 0.[address] [facility] (Lab) [address], [place], [address], 08/26/2024 12:03:47 08/26/19 25 08/25/2024 CBC W/DIF F absolute NRBCs 0.0 10'3/ uL no refere nce range establ ished Not Available [facility] (Lab) [address], [place], [address], 08/26/2024 12:03:47 08/26/19 25 08/25/2024 CBC W/DIF F neutrophils 67.0 % 34.0-[address] [facility] (Lab) [address], [place], [address], 08/26/2024 12:03:47 08/26/19 25 08/25/2024 CBC W/DIF F lymphocytes 24.5 % 15.0-[address] [facility] (Lab) [address], [place], [address], 08/26/2024 12:03:47 08/26/19 25 08/25/2024 CBC W/DIF F monocytes 6.3 % 1.0-[address] [facility] (Lab) [address], [place], [address], 08/26/2024 12:03:47 08/26/19 25 08/25/2024 CBC W/DIF F eosinophils 1.2 % 0.0-8. [address] [facility] (Lab) [address] [place], [address], 08/26/2024 12:03:47 08/26/19 25 08/25/2024 CBC W/DIF F basophils 0.2 % 0.0-2. [address] [facility] (Lab) [address], [place], [address], 08/26/2024 12:03:47 08/26/19 25 08/25/2024 CBC W/DIF [...] separ ately if prese nt. Not Available [facility] (Lab) [address], [place], [address], 08/26/2024 12:03:47 08/26/19 25 08/25/2024 CBC W/DIF F absolute neutrophils 5.6 10'3/ uL 1.5-8. [address] [facility] (Lab) [address], [place], [address], 08/26/2024 12:03:47 08/26/19 25 08/25/2024 CBC W/DIF F absolute lymphocytes 2.1 10'3/ uL 1.0-4. [address] [facility] (Lab) [address], [place], [address], 08/26/2024 12:03:47 08/26/19 25 08/25/2024 CBC W/DIF F absolute monocytes 0.5 10'3/ uL 0.2-1. [address] [facility] (Lab) [address], [place], [address], 08/26/2024 12:03:47 08/26/19 25 08/25/2024 CBC W/DIF F absolute eosinophils 0.1 10'3/ uL 0.0-0. [address] [facility] (Lab) [address], [place], [address], 08/26/2024 12:03:47 08/26/19 25 08/25/2024 CBC W/DIF F absolute basophils 0.0 10'3/ uL 0.0-0. [address] [facility] (Lab) [address] [place], [address], 08/26/2024 12:03:47 08/26/19 25 08/25/2024 CBC W/DIF F absolute immature granulocytes 0.1 10'3/ uL 0.00-0 .10 Refer ence range s for nonbi nary/ inter sex or unspe cifie d gende r patie nts have not been estab lishe d. Pleas e [facility] for range s estab lishe d for cisge nder patie nts and evalu ate in the clini figueroa sarahi xt of the indiv idual patie nt: https ://danny arciniega book. nm.or g/gen derx Not Available [facility] (Lab) [address], [place], [address], 08/26/2024 12:03:47 08/26/1908/25/2024 TYPE/ RH/SC REEN ABO/Rh type O POS Not Available [facility] (Lab) [address] [place], [address], 08/26/2024 12:03:48 08/26/19 25 08/25/2024 TYPE/ RH/SC REEN antibody screen NEG Not Available [facility] (Lab) [address], [place], [address], 08/26/2024 12:03:48 08/26/19 25 08/25/2024 TYPE/ RH/SC REEN exp date 2024 23:[address] [facility] (Lab) [address] [place], [address], 08/26/2024 12:03:48 08/26/19 25 08/25/2024 HEPAT ITIS B SURFA CE ANTIG EN hepatitis B surface antigen Non-re active non-re active This assay was perfo rmed using [employer] ratio n reage nts and test kits. Value s obtai ellie with other assay metho ds or kits canno t be used inter smith eably . Not Available [facility] (Lab) [address], [place], [address], 08/26/2024 12:03:48 08/26/19 25 08/25/2024 HEPAT ITIS C ANTIB JAMEEL SCREE N, REFLE X TO CONFI RMATI ON hepatitis C antibody Non-re active non-re active Antib odies to HCV Not Detec lina, does not exclu de the possi bilit y of expos ure to HCV. Not Available [facility] (Lab) [address] [place], [address], 08/26/2024 12:03:49 08/26/19 25 08/25/2024 TSH, REFLE X FREE T4 TSH 1.44 uIU/m L 0.30-[address] [facility] (Lab) [address] [place], [address], 08/26/2024 12:03:49 08/26/19 25 08/25/2024 RUBEL LA IGG ANTIB JAMEEL, QUANT rubella antibodies, IgG Reacti ve reacti ve Not Available [facility] (Lab) [address] [place], [address], 08/26/2024 12:03:50 08/26/19 25 08/25/2024 RUBEL LA IGG ANTIB JAMEEL, QUANT rubella antibodies, IgG quant 242.9 IU/mL >=10 Non-r eacti ve (Non- Immun e) <10 IU/mL React veronica (Immu ne) > or = 10 IU/mL Not Available [facility] (Lab) [address] [place], [address], 08/26/2024 12:03:50 08/26/19 25 08/25/2024 HEMOG LOBIN [...] >8.0% Actio n sugge sted Not Available [facility] (Lab) [address], [place], [address], 08/26/2024 12:03:50 08/26/19 25 08/25/2024 RPR SCREE N, REFLE X TITER /CONF IRMAT ION RPR qualitative Nonrea ctive nonrea ctive Not Available [facility] (Lab) [address], [place], [address], 08/26/2024 12:03:51 08/26/19 25 08/25/2024 IMAGE GUIDE [...] as clini lala summers nted. Not Available [facility] (Lab) [address], [place], [address], 08/27/2024 04:01:28 08/26/19 25 08/25/2024 CULTU RE: URINE result report SEE RESULT S BELOW abnormal Test: Cultu re: Urine Speci men Sourc e: Urine Voide d Speci men Type: Urine Speci men Date: 1442 Resul t Date: 257 Resul t Statu s: Final resul t Abnor mal: Yes Resul ting Lab: [facility] [address] [facility] [address] Tel: CULTU RE ----- ----- ----- --- [...] lab withi n [address] [facility] (Lab) [address] , [place], [address], 08/27/2024 04:01:29 09/23/1909/22/2024 HIV 1/2 ANTIG EN/AN TIBOD Y, REFLE X CONFI RMATI ON HIV antigen/anti body Nonrea ctive nonrea ctive Phleb otomi [facility] this test on 08/25 . Do not charg e for venip unctu re. HIV-1 antig en and HIV-1 /HIV- 2 antib odies were not detec lina. No labor atory evide nce of HIV infec tion. Not Available [facility] (Lab) [address] , [place], [address], 09/23/2024 04:49:59 12/16/1912/15/2024 HEMOG LOBIN (HGB) HGB 11.8 g/dL (based on docume nted legal sex) 11.6-[address] [facility] (Lab) [address], [place], [address], 12/16/2024 14:27:51 12/16/19 25 12/15/2024 HEMAT OCRIT (HCT) HCT 37.1 % (based on docume nted legal sex) 34.0-[address] [facility] (Lab) [address], [place], [address], 12/16/2024 14:27:51 12/16/1912/15/2024 GTT - GESTA ARSH L SCREE N, ACOG OB glucose, 1 hour screen 173 mg/dL 70-[address] [facility] (Lab) [address], [place], [address], 12/16/2024 14:27:52 12/16/1912/15/2024 HIV 1/2 ANTIG EN/AN TIBOD Y, REFLE X CONFI RMATI ON HIV antigen/anti body Nonrea ctive nonrea ctive HIV-1 antig en and HIV-1 /HIV- 2 antib odies were not detec lina. No labor atory evide nce of HIV infec tion. Not Available [facility] (Lab) [address], [place], [address], 12/16/2024 14:27:52 12/16/1912/15/2024 RPR SCREE N, REFLE X TITER /CONF IRMAT ION RPR qualitative Nonrea ctive nonrea ctive Not Available [facility] (Lab) [address], [place], [address], 12/16/2024 14:27:53 08/26/19 25 08/25/2024 US, obste tric, nucha l trans lucen cy No observ ation record ed. [email or web address] [place] [address], [place], [address], 08/25/2024 15:03:01 08/26/19 25 08/25/2024 US, obste tric, nucha l trans lucen cy No observ ation record ed. [email or web address] Tia [address], [place], [address], 08/26/2024 13:31:04 10/21/19 25 10/20/2024 US, obste tric, 2nd or 3rd trime ster No observ ation record ed. [email or web address] [place] [address], [place], [address], 10/20/2024 15:07:51 10/21/19 25 10/20/2024 US, obste tric, 2nd or 3rd trime ster No observ ation record ed. [email or web address] [address], [place], [address], 12/29/2024 17:15:22 11/18/19 25 11/17/2024 US, obste tric, limit ed No observ ation record ed. [email or web address] [place] [address], [place], [address], 11/17/2024 15:58:58 11/18/19 25 11/17/2024 US, obste tric, limit ed No observ ation record ed. [email or web address] [address], [place], [address], 12/29/2024 17:09:12 01/13/2001/12/2025 US, obste tric, follo w-up No observ ation record ed. [email or web address] [place] [address], [place], [address], 01/12/2025 12:15:18 01/13/2016 0101/12/2025 US, obste tric, follo w-up No observ ation record ed. NIRVA Weber [address], [place], [address], 02/15/2025 10:24:47 Result Notes None recorded. Problems Name Problem SNOMED Code Status Onset Date Resolution Date Notes Provider Name and Address Organization Details Recorded Time 73389504 Active 2024 Hilaria Kessler [facility], [facility] 12:41:52 Deliverie s by [id number] Active 2024 TO REPEAT C/S, would like 03/03 SHAWN BACON MD [address], [place], [address], [facility] 12:31:36 Past history of placenta previa 582144640 Active 2024 Jacob Sanders MD [address], [place], [address], [facility] 12:49:56 Bacteriur ia 09106422 Active 2024 Hilarianeha Kessler [facility] 13:18:44 Bacteriur ia 08099395 Active 2024 Hilaria [facility] 13:18:44 Genetic disorder carrier 04207432 Active 2024 + carrier for SMA and alpha thalassem ia; needs partner testing prior to next SHAWN BACON MD [address], [place], [address], [facility] 12:43:49 Problem Notes None recorded. Procedures Surgical History Date Name Laterality Status Provider Name and Address Organization Details Recorded Time Date of Last Pap Smear completed Dia Rocha [facility] 12/29/2024 17:18:43 section completed Hilaria Kessler [facility] 01/21/2023 12:22:47 Imaging Results [...] Address Organization Details Last Updated DateTime 12/15/2024 84816.98340 g 103/68 mm[Hg] Diaamita Araizablas [facility] 12/15/2024 15:08:01 Social History Question Answer Notes LastModified by Organizat ion Details LastModified Time Tobacco Smoking Status Never Smoker Hilaria schmidt, [facility] 01/21/2023 12:22:38 If You [...] ICD10 Code Diagnosis IMO Codes Diagnosis Note [id number] MD Timur BALL [address],[place] [address] 11/17/2024 12:10:34 11/17/2024 14:20:54 Deliveries by [id number] 672771 - desires RCS Bacteriuria 36783339 O99 .820 [id number] Gestation period, 24 weeks 103034762 Z3A.24 7636402 [id number] MD Timur BLAL [address],[place] [address] 11/17/2024 12:55:45 11/17/2024 13:20:14 Finding related to 850797861 Z03.72 Z3A.24 [id number] [id number] MD Timur BALL [address],[place] [address] 12/15/2024 14:54:05 12/15/2024 15:57:01 Deliveries by [id number] 469784 - desires RCS Gestation period, 28 weeks 95057652 Z3A.28 [id number] Health Concerns Section Related Observation LastModified by Organization Detai ls LastModified Time None Recorded Concern Status LastModified by Organization Details LastModified Time None Recorded Payers Encounter Date Sequence Insurance Name Policy Number Policy Guillen Covered Member ID Guillen Member ID Guarantor Name 12/15/2024 1 [facility] [id number] Lesley Evans [id number] Lesley Evans 12/15/2024 2 [place] [facility] [place] OF PUBLIC AID Lesley Evans [id number] Lesley Evans Notes Date Note Type Note Provider Name and Address Organization Details Recorded Time 12/15/2024 text/html Generic HPI TemplateReported by Patient SHAWN BACON MD [address], [place], [address], [place] [facility] 12/15/2024 15:56:24 OBGyn Episode Ob Episode Information Episode Created Date Number of Fetuses Patient Bloodtype Patient rh Status Prepregnancy Weight lbs Domestic Partner Domestic Partner Phone Father Name Plastic Mould Maker Status 08/26/19 25 1 O Positive [address] Paolo s OPEN Fetus Data First Name Last Name Admitted to NICU Weight (g) Sex Living Outcome Pediatric Complications Fetus ID Race Codes Race Delivery Type [id number] Problems Problem Notes Problem Name Start Date End Date Resolution Snomed Code Not e Bacteriuria 09/04/2024 27275407 Genetic disorder carrier 10/20/2024 79056520 + 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; needs partner testing prior to next Past history of placenta previa 08/25/2024 [id number] Deliveries by 08/25/2024 [id number] TO REPEAT C/S, would like 03/03 [...] Weight in lbs Pre/Post Dialysis Refused Weight 163.476319606768 BP Diastolic BP Location Tested BP Systolic [...] Weight in lbs Pre/Post Dialysis Refused Weight 166.718327319950 BP Diastolic BP Location Tested BP Systolic [...] Weight in lbs Pre/Post Dialysis Refused Weight 168.319384814176 BP Diastolic BP Location Tested BP Systolic [...] Weight in lbs Pre/Post Dialysis Refused Weight 172.368517331761 BP Diastolic BP Location Tested BP Systolic [...] Type Weight in lbs Pre/Post Dialysis Refused 178.406468611044 BP Diastolic BP Location Tested BP Systolic [...] Weight in lbs Pre/Post Dialysis Refused Weight 178.669943359115 BP Diastolic BP Location Tested BP Systolic [...] Type Weight in lbs Pre/Post Dialysis Refused 177.343382899933 BP Diastolic BP Location Tested BP Systolic [...] Weight in lbs Pre/Post Dialysis Refused Weight 178.804158384271 BP Diastolic BP Location Tested BP Systolic BP Type 69 L arm 118 sitting Fetus Heart Rate Present Fetus Movement A Yes Comments Good movement. No cram ping or bleeding. Discussed day of c section. Patient would like to start leave at 36 weeks due to very physical job. Will send [facility] paperwork to the office. Received tdap, RSV and flu vaccines. Preadmission scheduled. RTC 2 weeks. Flowsheet Date 02/09/2025 Cuevas Score Blood Edema Fundus Height Fundus Units Glucose Ketones Leukocytes Nitrite Labor Signs Protein Cervic Dilation Cervic Effacement Cervic Station Type Weight in lbs Pre/Post Dialysis Refused Weight 183.391662045415 BP Diastolic BP Location Tested BP Systolic [...] Weight in lbs Pre/Post Dialysis Refused Weight 182.263221438147 BP Diastolic BP Location Tested BP Systolic [...] Type Weight in lbs Pre/Post Dialysis Refused 183.511023114498 BP Diastolic BP Location Tested BP Systolic [...]
--- OUTSIDE RECORDS SUMMARY | 2025-03-03 00:36 | XMS_ITS | Data Portability ---
Author Organization [facility] [place] Address [address] [place] [address] [place] [address] Assessment No assessment recorded. Plan of Treatment Reminders Order Date Submit Date Provider Last Modified By Organization Details Last Modified Time Details Appointments SURG CSection 2024 07:30A Conchis BACON MD Not available Not available Not available SURG POST OP 2024 11:00A Conchis BACON MD Not available Not available Not available Lab streptoco ccus group B, culture, unspecifi ed specimen 2024 025 [facility] (Lab), [address], [place], [address], 02/13/2025 16:13:51 Referral None recorded. Procedures None recorded. Surgeries None recorded. Imaging US, obstetric , follow-up 2024 025 [email or web address] [place] [facility] [address], [place], [address], 01/12/2025 13:28:36 Medication Orders None recorded. Patient TargetsNo targets recorded. Patient InstructionsNo instructions recorded. Reason for Referral None Reported. Results Created Date Observation Date Name Description Value Unit Range Abnormal Flag Note LastModifiedBy Organization Detail LastModifiedTime 12/16/1912/15/2024 HEMOG LOBIN (HGB) HGB 11.8 g/dL (based on docume nted legal sex) 11.6-1 5.4 Not Available [facility] (Lab) [address], [place], [address], 12/16/2024 14:27:51 12/16/19 25 12/15/2024 HEMAT OCRIT (HCT) HCT 37.1 % (based on docume nted legal sex) 34.0-4 5.0 Not Available [facility] (Lab) [address] [place] [address], [place], [address], 12/16/2024 14:27:51 12/16/19 25 12/15/2024 GTT - GESTA ARSH L SCREE N, ACOG OB glucose, 1 hour screen 173 mg/dL 70-135 high Not Available [facility] (Lab) [address] [place] [address], [place], [address], 12/16/2024 14:27:52 12/16/19 25 12/15/2024 HIV 1/2 ANTIG EN/AN TIBOD Y, REFLE X CONFI RMATI ON HIV antigen/anti body Nonrea ctive nonrea ctive HIV-1 antig en and HIV-1 /HIV- 2 antib odies were not detec lina. No labor atory evide nce of HIV infec tion. Not Available [facility] (Lab) [address] [place] [address], [place], [address], 12/16/2024 14:27:52 12/16/19 25 12/15/2024 RPR SCREE N, REFLE X TITER /CONF IRMAT ION RPR qualitative Nonrea ctive nonrea ctive Not Available [facility] (Lab) [address] [place] [address], [place], [address], 12/16/2024 14:27:53 12/31/19 25 12/30/2024 CBC W/DIF F WBC 8.5 10'3/ uL 3.5-10 .5 Not Available [facility] (Lab) [address] [place] [address], [place], [address], 12/31/2024 13:41:41 12/31/19 25 12/30/2024 CBC W/DIF F RBC 4.47 10'6/ uL (based on docume nted legal sex) 3.80-5 .20 Not Available [facility] (Lab) [address] [place] [address], [place], [address], 12/31/2024 13:41:41 12/31/19 25 12/30/2024 CBC W/DIF F HGB 12.5 g/dL (based on docume nted legal sex) 11.6-1 5.4 Not Available [facility] (Lab) [address] [place] [address], [place], [address], 12/31/2024 13:41:41 12/31/19 25 12/30/2024 CBC W/DIF F HCT 39.4 % (based on docume nted legal sex) 34.0-4 5.0 Not Available [facility] (Lab) [address] [place] [address], [place], [address], 12/31/2024 13:41:41 12/31/19 25 12/30/2024 CBC W/DIF F MCV 88.1 fL 80.0-9 9.0 Not Available [facility] (Lab) [address] [place] [address], [place], [address], 12/31/2024 13:41:41 12/31/19 25 12/30/2024 CBC W/DIF F MCH 28.0 pg 27.0-3 4.0 Not Available [facility] (Lab) [address] [place] [address], [place], [address], 12/31/2024 13:41:41 12/31/19 25 12/30/2024 CBC W/DIF F MCHC 31.7 g/dL 32.0-3 5.5 low Not Available [facility] (Lab) [address] [place] [address], [place], [address], 12/31/2024 13:41:41 12/31/19 25 12/30/2024 CBC W/DIF F RDW 13.8 % 11.0-1 5.0 Not Available [facility] (Lab) [address] [place] [address], [place], [address], 12/31/2024 13:41:41 12/31/19 25 12/30/2024 CBC W/DIF F plt 209 10'3/ uL 150-40 0 Not Available [facility] (Lab) [address] [place] [address], [place], [address], 12/31/2024 13:41:41 12/31/19 25 12/30/2024 CBC W/DIF F MPV 10.3 fL 8.8-12 .1 Not Available [facility] (Lab) [address] [place] [address], [place], [address], 12/31/2024 13:41:41 12/31/19 25 12/30/2024 CBC W/DIF F NRBC's 0.0 % 0.0 Not Available [facility] (Lab) [address] [place] [address], [place], [address], 12/31/2024 13:41:41 12/31/19 25 12/30/2024 CBC W/DIF F absolute NRBCs 0.0 10'3/ uL no refere nce range establ ished Not Available [facility] (Lab) [address] [place] [address], [place], [address], 12/31/2024 13:41:41 12/31/19 25 12/30/2024 CBC W/DIF F neutrophils 69.4 % 34.0-7 3.0 Not Available [facility] (Lab) [address] [place] [address], [place], [address], 12/31/2024 13:41:41 12/31/19 25 12/30/2024 CBC W/DIF F lymphocytes 24.5 % 15.0-5 0.0 Not Available [facility] (Lab) [address] [place] [address], [place], [address], 12/31/2024 13:41:41 12/31/19 25 12/30/2024 CBC W/DIF F monocytes 4.5 % 1.0-15 .0 Not Available [facility] (Lab) [address] [place] [address], [place], [address], 12/31/2024 13:41:41 12/31/19 25 12/30/2024 CBC W/DIF F eosinophils 0.6 % 0.0-8. 0 Not Available [facility] (Lab) [address] [place] [address], [place], [address], 12/31/2024 13:41:41 12/31/19 25 12/30/2024 CBC W/DIF F basophils 0.4 % 0.0-2. 0 Not Available [facility] (Lab) [address] [place] [address], [place], [address], 12/31/2024 13:41:41 12/31/19 25 12/30/2024 CBC W/DIF [...] separ ately if prese nt. Not Available [facility] (Lab) [address] [place] [address], [place], [address], 12/31/2024 13:41:41 12/31/19 25 12/30/2024 CBC W/DIF F absolute neutrophils 5.9 10'3/ uL 1.5-8. 0 Not Available [facility] (Lab) [address] [place] [address], [place], [address], 12/31/2024 13:41:41 12/31/19 25 12/30/2024 CBC W/DIF F absolute lymphocytes 2.1 10'3/ uL 1.0-4. 0 Not Available [facility] (Lab) [address] [place] [address], [place], [address], 12/31/2024 13:41:41 12/31/19 25 12/30/2024 CBC W/DIF F absolute monocytes 0.4 10'3/ uL 0.2-1. 0 Not Available [facility] (Lab) [address], [place], [address], 12/31/2024 13:41:41 12/31/19 25 12/30/2024 CBC W/DIF F absolute eosinophils 0.1 10'3/ uL 0.0-0. 6 Not Available [facility] (Lab) [address], [place], [address], 12/31/2024 13:41:41 12/31/19 25 12/30/2024 CBC W/DIF F absolute basophils 0.0 10'3/ uL 0.0-0. 3 Not Available [facility] (Lab) [address], [place], [address], 12/31/2024 13:41:41 12/31/19 25 12/30/2024 CBC W/DIF [...] arciniega book. nm.or g/gen derx Not Available [facility] (Lab) [address], [place], [address], 12/31/2024 13:41:41 12/31/19 25 12/30/2024 GTT - GESTA ARSH L, 3 HOUR, ACOG glucose, fasting acog 73 mg/dL 70-94 Not Available [facility] (Lab) [address], [place], [address], 12/31/2024 13:41:42 12/31/19 25 12/30/2024 GTT - GESTA ARSH L, 3 HOUR, ACOG glucose, 1 hour acog 166 mg/dL 70-179 Not Available [facility] (Lab) [address] [place] [address], [place], [address], 12/31/2024 13:41:42 12/31/19 25 12/30/2024 GTT - GESTA ARSH L, 3 HOUR, ACOG glucose, 2 hour acog 167 mg/dL 70-154 high Not Available [facility] (Lab) [address] [place] [address], [place], [address], 12/31/2024 13:41:42 12/31/19 25 12/30/2024 GTT - GESTA ARSH L, 3 HOUR, ACOG glucose, 3 hour acog 137 mg/dL 70-139 Not Available [facility] (Lab) [address] [place] [address], [place], [address], 12/31/2024 13:41:42 12/31/19 25 12/30/2024 CMP(C OMPRE HENSI VE METAB OLIC PANEL ) sodium 137 mmol/ L 133-14 6 Not Available [facility] (Lab) [address] [place] [address], [place], [address], 12/31/2024 13:41:42 12/31/19 25 12/30/2024 CMP(C OMPRE HENSI VE METAB OLIC PANEL ) potassium 4.0 mmol/ L 3.5-5. 1 Not Available [facility] (Lab) [address] [place], [address], 12/31/2024 13:41:42 12/31/19 25 12/30/2024 CMP(C OMPRE HENSI VE METAB OLIC PANEL ) chloride 103 mmol/ L 98-107 Not Available [facility] (Lab) [address] [place], [address], 12/31/2024 13:41:42 12/31/19 25 12/30/2024 CMP(C OMPRE HENSI VE METAB OLIC PANEL ) carbon dioxide 24 mmol/ L 21-31 Not Available [facility] (Lab) [address] [place], [address], 12/31/2024 13:41:42 12/31/19 25 12/30/2024 CMP(C OMPRE HENSI VE METAB OLIC PANEL ) anion gap 10 mmol/ L 4-13 Not Available [facility] (Lab) [address] [place] [address], [place], [address], 12/31/2024 13:41:42 12/31/19 25 12/30/2024 CMP(C OMPRE HENSI VE METAB OLIC PANEL ) blood urea nitrogen 8 mg/dL 7-25 Not Available [facility] (Lab) [address] [place] [address], [place], [address], 12/31/2024 13:41:42 12/31/19 25 12/30/2024 CMP(C OMPRE HENSI VE METAB OLIC PANEL ) creatinine 0.39 mg/dL 0.60-1 .30 low Not Available [facility] (Lab) [address] [place] [address], [place], [address], 12/31/2024 13:41:42 12/31/19 25 12/30/2024 CMP(C OMPRE HENSI VE METAB OLIC PANEL ) egfrcr (CKD-epi 2020) >90 mL/mi n/1.7 3_m2 >=60 Not Available [facility] (Lab) [address] [place] [address], [place], [address], 12/31/2024 13:41:42 12/31/19 25 12/30/2024 CMP(C OMPRE HENSI VE METAB OLIC PANEL ) calcium 8.7 mg/dL 8.3-10 .5 Not Available [facility] (Lab) [address] [place] [address], [place], [address], 12/31/2024 13:41:42 12/31/19 25 12/30/2024 CMP(C OMPRE HENSI VE METAB OLIC PANEL ) glucose 173 mg/dL 70-100 high Not Available [facility] (Lab) [address] [place] [address], [place], [address], 12/31/2024 13:41:42 12/31/19 25 12/30/2024 CMP(C OMPRE HENSI VE METAB OLIC PANEL ) protein, total 6.4 g/dL 6.4-8. 3 Not Available [facility] (Lab) [address] [place] [address], [place], [address], 12/31/2024 13:41:42 12/31/19 25 12/30/2024 CMP(C OMPRE HENSI VE METAB OLIC PANEL ) albumin 3.5 g/dL 3.5-5. 0 Not Available [facility] (Lab) [address] [place] [address], [place], [address], 12/31/2024 13:41:42 12/31/19 25 12/30/2024 CMP(C OMPRE HENSI VE METAB OLIC PANEL ) ALT 18 units /L 9-43 Not Available [facility] (Lab) [address] [place] [address], [place], [address], 12/31/2024 13:41:42 12/31/19 25 12/30/2024 CMP(C OMPRE HENSI VE METAB OLIC PANEL ) alkaline phosphatase 96 units /L 34-104 Not Available [facility] (Lab) [address] [place] [address], [place], [address], 12/31/2024 13:41:42 12/31/19 25 12/30/2024 CMP(C OMPRE HENSI VE METAB OLIC PANEL ) AST 18 units /L 13-39 Not Available [facility] (Lab) [address] [place] [address], [place], [address], 12/31/2024 13:41:42 12/31/19 25 12/30/2024 CMP(C OMPRE HENSI VE METAB OLIC PANEL ) bilirubin, total 0.5 mg/dL 0.2-1. 2 Not Available [facility] (Lab) [address] [place] [address], [place], [address], 12/31/2024 13:41:42 12/31/19 25 12/30/2024 MIRLANDE TIN / IRON / TRANS MIRLANDE N / TIBC iron 123 ug/dL 40-170 Not Available [facility] (Lab) [address] [place] [address], [place], [address], 12/31/2024 13:41:43 12/31/19 25 12/30/2024 MIRLANDE TIN / IRON / TRANS MIRLANDE N / TIBC transferrin 367 mg/dL 200-36 0 high Not Available [facility] (Lab) [address] [place] [address], [place], [address], 12/31/2024 13:41:43 12/31/19 25 12/30/2024 MIRLANDE TIN / IRON / TRANS MIRLANDE N / TIBC ferritin 23.6 NG/mL 8.0-25 2.0 Not Available [facility] (Lab) [address] [place] [address], [place], [address], 12/31/2024 13:41:43 12/31/19 25 12/30/2024 MIRLANDE TIN / IRON / TRANS MIRLANDE N / TIBC TIBC 514 ug/dL 250-45 0 high Not Available [facility] (Lab) [address] [place] [address], [place], [address], 12/31/2024 13:41:43 12/31/19 25 12/30/2024 MIRLANDE TIN / IRON / TRANS MIRLANDE N / TIBC iron saturation 24 % 20-55 Not Available [facility] (Lab) [address] [place] [address], [place], [address], 12/31/2024 13:41:43 12/31/19 25 12/30/2024 BILE ACIDS , TOTAL bile acids, total 3 umol/ L 0-10 Test Perfo rmed by: Jaskaran Neville [facility] [address] [address] Not Available [facility] (Lab) [address] [place] [address], [place], [address], 12/31/2024 13:41:43 02/10/20 25 02/09/2025 CULTU RE: [...] t Abnor mal: Yes Resul ting Lab: [facility] [address] [facility] [address] [facility] [address] Tel: CULTU RE ----- ----- ----- --- [...] indu for these drugs . Not Available [facility] (Lab) [address] [place] [address], [place], [address], 02/13/2025 16:13:50 01/13/20 25 01/12/2025 US, obste tric, follo w-up No observ ation record ed. [email or web address] [place] [address], [place], [address], 01/12/2025 12:15:18 01/13/20 25 01/12/2025 US, obste tric, follo w-up No observ ation record ed. NIRAV Weber [address], [place], [address], 02/15/2025 10:24:47 Result Notes None recorded. Problems Name Problem SNOMED Code Status Onset Date Resolution Date Notes Provider Name and Address Organization Details Recorded Time 73344995 Active 2024 Hilaria Kessler [facility] 12:41:52 Deliverie s by 969868748 Active 2024 TO REPEAT C/S, would like 03/03 SHAWN BACON MD [address], [place], [address], [facility] 12:31:36 Past history of placenta previa 084091703 Active 2024 Jacob Sanders MD [address], [place], [address], [facility] 12:49:56 Bacteriur ia 10924396 Active 2024 [facility] 13:18:44 Bacteriur ia 73599886 Active [address] [facility] 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 12:43:49 Problem Notes None recorded. Procedures Surgical History Date Name Laterality Status Provider Name and Address Organization Details Recorded Time Date of Last Pap Smear completed Dia Rocha [facility] 12/29/2024 17:18:43 section completed Hilaria Kessler [facility] 01/21/2023 12:22:47 Imaging Results None [...] Address Organization Details Last Updated DateTime 01/12/2025 70787.849 49 g 38.3 kg/m2 144.78 cm 105/64 mm[Hg] [facility] 01/12/2025 12:15:11 Date Recorded Body height Body mass index (BMI) Body weight Systolic And Diastolic Provider Name and Address Organization Details Last Updated DateTime 01/27/2025 144.78 cm 38.5 kg/m2 46802.44 g 118/69 mm[Hg] [facility] 01/27/2025 16:35:03 Date Recorded Body height Body mass index (BMI) Body weight Systolic And Diastolic Provider Name and Address Organization Details Last Updated DateTime 02/09/2025 144.78 cm 39.6 kg/m2 27182.4 g 111/68 mm[Hg] [facility] 02/09/2025 15:13:46 Date Recorded Body height Body mass index (BMI) Body weight Systolic And Diastolic Provider Name and Address Organization Details Last Updated DateTime 02/16/2025 144.78 cm 39.4 kg/m2 53578.81 g 122/79 mm[Hg] [facility] 02/16/2025 15:04:00 Date Recorded Body weight Body mass index (BMI) Body height Systolic And Diastolic Provider Name and Address Organization Details Last Updated DateTime 02/24/2025 10369.403 71 g 39.6 kg/m2 144.78 cm 114/74 mm[Hg] Dia Rocha [facility] 02/24/2025 09:46:01 Social History Question Answer Notes LastModified by Organizat ion Details LastModified Time Tobacco Smoking Status Never Smoker Hilaria Kessler roxana [facility] 01/21/2023 12:22:38 If You Are [...] ICD10 Code Diagnosis IMO Codes Diagnosis Note [id number] Jacob Sanders MD [place] [address] [address] 01/21/2023 10:57:41 01/21/2023 12:55:37 Contraception care management 132357638 Z30.9 Gynecologi c examination 54781870 Z01.419 Annual gynecologi figueroa exam performed. Patient [...] Pap smear- today laboratory evaluation - declined [id number] Jacob Sanders MD [place] [address],[place] [address] 06/29/2024 12:53:38 06/29/2024 13:42:01 Uncertain viability of 545988412 O36.80X0 Z3A.01 [id number] Jacob Sanders MD [place] [address],[place] [address] 07/16/2024 11:04:37 07/16/2024 11:34:30 screening 089221169 Z36.87 Z3A.01 1780683298 [id number] Jacob Sanders MD [place] [address],[place] [address] 07/28/2024 11:10:44 07/28/2024 11:55:33 Fundal height high for dates 303017187 O26.849 Z3A.08 368367 [id number] Jacob Sanders MD [place] [address],[place] [address] 07/28/2024 11:10:58 07/28/2024 12:47:52 Amenorrhea 57374388 N91.2 17069 this patient is a 34-year-ol d female [...] begin routine care at her next visit. 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 586686769 Z75.8 [id number] Gestation period, 16 weeks 50343986 Z3A.16 7824666 053415 SHAWN BACON MD [place] [address],[place] [address] 10/20/2024 10:30:28 10/20/2024 11:49:04 Ultrasound scan - obstetric 831066671 Z36.3 Z3A.20 49755 [id number] SHAWN BACON MD [place] [address],[place] [address] 10/20/2024 10:30:39 10/20/2024 12:52:06 Genetic disorder carrier 69462208 Z14.8 008089 + carrier for SMA and alpha thalassemi a; needs partner testing prior to next Deliveries by [id number] O82 639368 - desires [facility] Gestation period, 20 weeks 13568170 Z3A.20 2145428 722681 SHAWN BACON MD [place] [address],[place] [address] 11/17/2024 12:10:34 11/17/2024 14:20:54 Deliveries by O82 [id number] - desires [facility] Bacteriuria 73705996 O99 .820 17541371 Gestation period, 24 weeks 161145126 Z3A.24 4264927 038517 SHAWN BACON MD [place] [address],[place] [address] 11/17/2024 12:55:45 11/17/2024 13:20:14 Finding related to 533519268 Z03.72 Z3A.24 7321351 [id number] MD Timur BALL [address],[place] [address] 12/15/2024 14:54:05 12/15/2024 15:57:01 Deliveries by [id number] O82 159642 - [facility] Gestation period, 28 weeks 12583088 Z3A.28 3319844 179364 SHAWN BACON MD [place] [address],[place] [address] 12/29/2024 17:08:45 01/01/2025 08:55:23 Itching of skin 474336264 L29.89 [id number] Deliveries by [id number] O82 186765 - [facility] Gestation period, 30 weeks 97085691 Z3A.30 9254906 813718 SHAWN BACON MD [place] [address],[place] [address] 01/12/2025 11:06:56 01/12/2025 12:11:01 Placenta circumvallata 0336543 O43.113 Z3A.32 9910091 [id number] MD Timur BALL [address],[place] [address] 01/12/2025 11:07:09 01/12/2025 12:46:52 Deliveries by [id number] O82 783521 - [facility] Gestation period, 32 weeks 9420505 Z3A.32 3139713 [id number] MD Timur BALL [address],[place] [address] 01/27/2025 16:23:34 01/27/2025 17:02:24 Bacteriuria 63482614 O99.820 [id number] Deliveries by [id number] O82 357150 - [facility] [id number] SHAWN BACON MD [place] [address] [address] 02/09/2025 15:07:38 02/09/2025 15:56:09 Gestation period, 36 weeks 78386679 Z3A.36 4081196 Deliveries by [id number] O82 694668 - desires [facility] 772809 SHAWN BACON MD [place] [address] [address] 02/16/2025 14:49:42 02/16/2025 15:24:08 Deliveries by [id number] O82 105464 - desires [facility] Bacteriuria 27914802 O99 .820 14195960 Gestation period, 37 weeks 27433511 Z3A.37 1645080 - continue PNV 481058 SHAWN BACON MD [place] [address] [address] 02/24/2025 09:38:49 02/24/2025 10:11:12 Deliveries by [id number] O82 011717 - desires [facility] [place] Gestation period, 38 weeks 35655797 Z3A.38 7353423 Health Concerns Section Related Observation LastModified by Organization Detai ls LastModified Time None Recorded Concern Status LastModified by Organization Details LastModified Time None Recorded Advance Directives Directive None Recorded Payers Insurance Date Sequence Insurance Name Policy Number Policy Guillen Covered Member ID Guillen Member ID Guarantor Name 06/29/2024 1 *SELF PAY* Ne pmary Evans 02/28/2025 1 [facility] [id number] Nepmary C Evans [id number] Nepmary Evasn 2025 2 [place] [employer] [employer] [place] [employer] Nepmary Evans [id number] Nepmary Evans Notes Date Note Type Note Provider Name and Address Organization Details Recorded Time 01/12/2025 text/html Generic HPI TemplateReported by Patient Dia schmidt, [facility] 01/12/2025 14:45:18 01/27/2025 text/html Generic HPI TemplateReported by Patient SHAWN BACON MD [address], [place], [address], [facility] 01/27/2025 17:01:00 02/09/2025 text/html Generic HPI TemplateReported by Patient SHAWN BACON MD [address], [place], [address], [facility] 02/09/2025 15:53:09 02/16/2025 text/html Generic HPI TemplateReported by Patient SHAWN BACON MD [address], [place], [address], [facility] 02/16/2025 15:22:02 02/24/2025 text/html Generic HPI TemplateReported by Patient SHAWN BACON MD [address], [place], [address], [facility] 02/24/2025 10:09:43 OBGyn Episode Ob Episode Information Episode Created Date Number of Fetuses Patient Bloodtype Patient rh Status Prepregnancy Weight lbs Domestic Partner Domestic Partner Phone Father Name Fast Food Sales Assistant Status 01/22/20 23 1 CLOSED Fetus Data First Name Last Name Admitted to NICU Weight (g) Sex Living Outcome Pediatric Complications Fetus ID Race Codes Race Delivery Type 5.88 8704 F Full Term [id number] Primary Lawrence Calculation Initial Lawrence Date Initial [...] Domestic Partner Domestic Partner Phone Father Name Fast Food Sales Assistant Status 08/26/19 25 1 O Positive [address] Paolo s OPEN Fetus Data First Name Last Name Admitted to NICU Weight (g) Sex Living Outcome Pediatric Complications Fetus ID Race Codes Race Delivery Type [id number] Problems Problem Notes Problem Name Start Date End Date Resolution Snomed Code Not e Bacteriuria 09/04/2024 93273935 Genetic disorder carrier 10/20/2024 32654645 + 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; needs partner testing prior to next Past history of placenta previa 08/25/2024 766563753 Deliveries by 08/25/2024 [id number] 004 TO REPEAT C/S, would like 03/03 [...] Weight in lbs Pre/Post Dialysis Refused Weight 163.065719698617 BP Diastolic BP Location Tested BP Systolic [...] Weight in lbs Pre/Post Dialysis Refused Weight 166.596160640770 BP Diastolic BP Location Tested BP Systolic [...] Weight in lbs Pre/Post Dialysis Refused Weight 168.850578494125 BP Diastolic BP Location Tested BP Systolic [...] Weight in lbs Pre/Post Dialysis Refused Weight 172.469719875973 BP Diastolic BP Location Tested BP Systolic [...] Type Weight in lbs Pre/Post Dialysis Refused 178.900847803149 BP Diastolic BP Location Tested BP Systolic [...] Weight in lbs Pre/Post Dialysis Refused Weight 178.337307611360 BP Diastolic BP Location Tested BP Systolic [...] Type Weight in lbs Pre/Post Dialysis Refused 177.475459022375 BP Diastolic BP Location Tested BP Systolic [...] Weight in lbs Pre/Post Dialysis Refused Weight 178.065959707944 BP Diastolic BP Location Tested BP Systolic BP Type 69 L arm 118 sitting Fetus Heart Rate Present Fetus Movement A Yes Comments Good movement. No cram ping or bleeding. Discussed day of c section. Patient would like to start leave at 36 weeks due to very physical job. Will send FMLA paperwork to the office. Received tdap, RSV and flu vaccines. Preadmission scheduled. RTC 2 weeks. Flowsheet Date 02/09/2025 Cuevas Score Blood Edema Fundus Height Fundus Units Glucose Ketones Leukocytes Nitrite Labor Signs Protein Cervic Dilation Cervic Effacement Cervic Station Type Weight in lbs Pre/Post Dialysis Refused Weight 183.159484279118 BP Diastolic BP Location Tested BP Systolic [...] Weight in lbs Pre/Post Dialysis Refused Weight 182.163997689997 BP Diastolic BP Location Tested BP Systolic [...] Type Weight in lbs Pre/Post Dialysis Refused 183.645618106495 BP Diastolic BP Location Tested BP Systolic [...]
[2025-03-03 05:57] LABS: Hematocrit 39.4 % (37.0-47.0); Hemoglobin 13.1 g/dL (12.0-15.0); Mean Corpuscular HGB Conc 33.2 g/dl (32-36); Mean Corpuscular Hemoglobin 29.3 pg (26-34); Mean Corpuscular Volume 88.1 fl (80-100); Platelet Count Result 163 k/mm3 (150-375); Red Blood Count 4.47 M/mm3 (4.2-5.4); White Blood Count 8.2 K/mm3 (4.5-10.0)
[2025-03-03] MEDS: LACTATED RINGERS 1,000 ML 125 ML IV CONT ×2 (05:59→09:43)
[2025-03-03] MEDS: ACETAMINOPHEN 500 MG TABLET 1000 MG PO ×3 (06:36→19:17)
[2025-03-03 06:40] LABS: Syphilis IgG/IgM Antibody Non-Reactive (Nonreactive)
--- NOTE | 2025-03-03 06:42 | LDADM ---
This patient, Lesley Evans, was admitted to Labor/Delivery/Recovery 119 on 03/03/25 at 05:12. Plans for repeat section were discussed with patient. Patient/family oriented to hospital policies and general routines including ID bracelet, bed and alarms, visiting hours, pain management, procedures, bathroom and other care routines, personal items, smoking policy, room service/diet and guest tray routines, infant security routines, and visiting hours. Patient/Family are encouraged to report perceived risks to care and to ask questions if they do not understand what they are told or what they should do. See OBIX for further documentation.
--- NOTE | 2025-03-03 06:51 | P.PNAN_ITS ---
Anes - Initial Pre Proc Eval Procedure: Operation Date: 03/03/25 07:30 Proposed Procedures p Repeat Section - Keanu Slater MD Date/Time: 03/03/25 06:51 Surgeon: Keanu Slater MD Pre Op Diagnosis: Patient Data Age: 35 Gender: F Height: 1.45 m Weight: 81.81 kg Last Vital Signs Pulse 80 03/03/25 06:45 BP 125/82 03/03/25 06:45 Pulse Ox 100 03/03/25 06:49 Allergies Allergy/AdvReac Type Severity Reaction Status Date / Time No Known Allergies Allergy Verified 02/03/25 13:56 Home Medications ?Medication ?Instructions ?Recorded ?Confirmed ?Type vit no.95-ferrous 1 tablet PO DAILY 02/03/25 02/03/25 History fumarate 28 mg-folic acid 800 mcg tablet () Laboratory Tests 03/03/25 05:25 WBC 8.2 K/mm3 (4.5-10.0) RBC 4.47 M/mm3 (4.2-5.4) Hgb 13.1 g/dL (12.0-15.0) Hct 39.4 % (37.0-47.0) MCV 88.1 fl (80-100) MCH 29.3 pg (26-34) MCHC 33.2 g/dl (32-36) RDW 13.6 % (11.5-14.5) Plt Count 163 k/mm3 (150-375) MPV 11.0 H fl (7.4-10.4) Syphilis IgG/IgM Ab Non-reactive (Nonreactive) HIV 1&2 Ab/P24 Ag 4thGn Pending Rubella IgG Antibody > 110.0 IU/ML (10 - ) Blood Type O Positive Antibody Screen Pending Patient hx anesthesia problems: none Family hx anesthesia problems: none Results Review: All pre-operative results and documents have been reviewed as part of the pre- operative evaluation. PMFSH Social History Social History Lack of Transportation: No Lack of Food: Never True Current Housing: I Have Housing Concerned About Future Housing: No Difficulty Paying Gas/Electric Bills: No Difficulty Paying for Meds: No Currently Unemployed: No Education: Bachelor's Degree Difficulty w/ Childcare or Family Care: No Anes - Eval Final PreProcedure Day of Procedure 03/03/25 06:51 Patient weight: obese Heart: regular rate and rhythm Lungs: clear to auscultation and normal air movement Airway: Mallampati scale class II Neurological: alert and oriented Last oral intake: >/= 8 hours ASA classification: II Emergent: no Anesthetic plan: proceed Anesthesia type and monitoring: regional spinal and standard monitoring Results Review: All pre-operative results and documents have been reviewed as part of the pre- operative evaluation. Informed Consent: The patient's anesthetic plan and its attendant risks and benefits were discussed with the patient/family/POA. Questions were solicited and answers pr ovided to the satisfaction of the patient/family/POA.
[2025-03-03 06:53] LABS: HIV 1/2 Ab P24 Ag Result Negative (Negative)
[2025-03-03] MEDS: FAMOTIDINE 20 MG/2 ML VIAL IV PUSH (07:13)
[2025-03-03] MEDS: ONDANSETRON INJ 4 MG/2 ML VIAL IV PUSH (07:13)
--- NOTE | 2025-03-03 07:52 | PM.IMHP2 ---
H&P: HPI History of Present Illness Date/Time: 03/03/25 07:52 Chief Complaint: repeat c section Narrative: Patient is a 35 year old who presents for repeat c section. Her is complicated by hx of c section x1, otherwise no complications. She denies strong contractions, leakage of fluid or vaginal bleeding. She reports good movement. Review of Systems Review of Systems: All systems reviewed & are unremarkable except as noted in HPI and below PMFSH Social History Social History Smoking status: Never smoker Second hand tobacco smoke exposure: No Lack of Transportation: No Lack of Food: Never True Current Housing: I Have Housing Concerned About Future Housing: No Difficulty Paying Gas/Electric Bills: No Difficulty Paying for Meds: No Currently Unemployed: No Education: Associate Degree Difficulty w/ Childcare or Family Care: No Meds Home Medications and Allergies Home Medications ?Medication ?Instructions ?Recorded ?Confirmed ?Type vit no.95-ferrous 1 tablet PO DAILY 02/03/25 03/03/25 History fumarate 28 mg-folic acid 800 mcg tablet () Allergies Allergy/AdvReac Type Severity Reaction Status Date / Time No Known Allergies Allergy Verified 03/03/25 06:53 Vital Signs Vital Signs - 24 hr 03/03/25 05:51 03/03/25 05:54 03/03/25 05:59 Pulse Rate Blood Pressure Pulse Oximetry 97 99 100 Oxygen Delivery 03/03/25 06:00 03/03/25 06:04 03/03/25 06:09 Pulse Rate 75 Blood Pressure 122/79 Pulse Oximetry 100 100 Oxygen Delivery 03/03/25 06:14 03/03/25 06:15 03/03/25 06:19 Pulse Rate 81 Blood Pressure 130/88 Pulse Oximetry 98 100 Oxygen Delivery 03/03/25 06:24 03/03/25 06:29 03/03/25 06:30 Pulse Rate 71 Blood Pressure 136/92 H Pulse Oximetry 100 99 Oxygen Delivery 03/03/25 06:34 03/03/25 06:39 03/03/25 06:39 Pulse Rate Blood Pressure Pulse Oximetry 100 100 Oxygen Delivery Room Air 03/03/25 06:44 03/03/25 06:45 03/03/25 06:49 Pulse Rate 80 Blood Pressure 125/82 Pulse Oximetry 100 100 Oxygen Delivery 03/03/25 06:54 03/03/25 07:05 03/03/25 07:11 Pulse Rate Blood Pressure Pulse Oximetry 98 100 100 Oxygen Delivery 03/03/25 07:16 03/03/25 07:21 03/03/25 07:26 Pulse Rate Blood Pressure Pulse Oximetry 99 100 100 Oxygen Delivery 03/03/25 07:31 03/03/25 07:36 03/03/25 07:41 Pulse Rate Blood Pressure Pulse Oximetry 100 100 100 Oxygen Delivery 03/03/25 07:46 03/03/25 07:51 Pulse Rate Blood Pressure Pulse Oximetry 97 98 Oxygen Delivery Exam Const: General: comfortable and no acute distress Orientation/consciousness: patient oriented x3 Eyes: General: appearance normal, both eyes and all related structures Resp: Effort & Inspection: normal respiratory effort Cardio: Rate: regular rate Skin: General skin exam: normal color Extrem: General: normal to inspection Psych: Mental Status: mental status grossly normal Results Labs Labs: Short CBC 03/03/25 Range/Units 05:25 WBC 8.2 (4.5-10.0) K/mm3 Hgb 13.1 (12.0-15.0) g/dL Hct 39.4 (37.0-47.0) % Plt Count 163 (150-375) k/mm3 Assessment and Plan Assessment and plan (1) Hx of section complicating : Code(s): O34.219 - Maternal care for unspecified type scar from previous delivery Status: Acute Assessment and Plan: - otherwise uncomplicated - hx of c section x1 - risks and benefits of TOLAC vs RCS discussed with patient and patient desires to proceed with repeat c section
--- NOTE | 2025-03-03 07:55 | WPDHPUPDATE1 ---
History and Physical Update Update Date/Time: 03/03/25 07:55 History and Physical has been reviewed, including an updated exam of the patient. There are NO changes in the patient's condition. Risks, benefits, and alternatives have been discussed and questions answered. Patient agrees to proceed with procedure.
[2025-03-03] MEDS: ceFAZolin 2 GM in SODIUM CHLORIDE 0.9% IV 50 ML 100 ML IVPB (08:06)
[2025-03-03] MEDS: KETOROLAC 15 MG/ML VIAL (*BKC) IV PUSH ×3 (08:30→19:18)
[2025-03-03] MEDS: OXYTOCIN 30 UNITS/NS 500 ML 30 UNITS/500 ML BAG 125 UNITS IV CONT (11:15)
--- NOTE | 2025-03-03 11:26 | OBPPTRN ---
Patient transferred to post room #292 via stretcher. Support person present. Oriented to unit, room, information board, rooming in, admission packet and security measures. Patient verbalizes understanding.
[2025-03-03] MEDS: LIDOCAINE 5% PATCH 1 PATCH TRANSDERM (12:45)
[2025-03-03] MEDS: SIMETHICONE 80 MG TAB.CHEW PO ×2 (12:46→17:09)
[2025-03-03] MEDS: DEXTROSE 5%/0.45% SOD CHL 1,000 ML 125 ML IV CONT (17:08)
[2025-03-03] MEDS: DOCUSATE SODIUM 100 MG CAPSULE PO (17:09)
--- NOTE | 2025-03-03 17:53 | PC.NURSE ---
[id number] Introductions were made, then consulted with patient to assess needs related to . Discussed with mother her?plans to feed?her infant and the?experience so far. Resources provided for inpatient and outpatient services with the feeding sheet, mom/baby guide and name written on the communication board. In room with Primary RN, Conchis Flower, who speaks [place] and interpreted. Mother had attempted to latch and Primary RN had helped her latch @ 1404 for a few minutes per mother, this CLC RN attempted to latch on both sides but infant could not maintain, mother was able to hand express, but was thrusting his tongue. We attempted to latch with a nipple shield to the right breast in cross cradle and infant could not maintain the latch, he kept pushing it out with his tongue. Primary RN got mother a hand breast pump to see if she could pump any colostrum. She then syringe fed 0.5mls of colostrum. After Primary RN syringe fed, mother then asked for a formula bottle. Mother voiced understanding of information and will call if there is a request for assistance.
--- NOTE | 2025-03-03 21:33 | W.PM.OBCSD ---
OB - Delivery Note Procedure Delivery date: 03/03/25 Pre-op diagnosis: Previous Delivery Post-op Diagnosis: Same Delivery monitor: External FHT Prior to decision for section, ACOG/SMFM labor guidelines were considered and discussed with the patient and staff. Decision made to proceed with the section.: Yes Procedure Performed: Repeat Secondary branch: low cervical, transverse Surgeon: Keanu Slater MD Anesthesia type: Spinal Description of Procedure/Findings: The patient was taken to the operating room where she was placed in the dorsal supine position with a leftward tilt. The electronic monitor was placed and heart rate was found to be reassuring. She was prepped and draped in the normal sterile fashion, and anesthesia was checked to be adequate. A Pfannenstiel skin incision was made with the scalpel and carried through to the underlying layer of fascia with the scalpel. The fascia was incised in the midline and the incision extended laterally with the Jenkins scissors. The superior aspect of the fascial incision was then grasped with Ehsan clamps, elevated, and the underlying rectus muscles dissected off bluntly and with Jenkins scissors. Attention was then turned to the inferior aspect of the fascial incision, which in similar fashion was grasped, elevated, and the rectus muscles dissected off.? The rectus muscles were then in the midline, and the peritoneum entered bluntly. The peritoneal incision was extended superiorly and inferiorly with good visualization of the bladder. With the bladder blade providing retraction and visualization, the lower uterine segment was incised in a transverse fashion with the scalpel. The uterine incision was then extended laterally. The bladder blade was removed and the 's head was elevated and delivered atraumatically. The remainder of the was then delivered without difficulty, and the infant's nose and mouth were suctioned with the bulb suction. The umbilical cord was doubly clamped and cut. The infant was then handed off to the waiting nursing staff. Specimens then obtained as listed below. The placenta was then removed manually and the uterus was exteriorized and cleared of all clots and debris. The uterine incision was repaired with 0-Monocryl in a running, interlocked fashion. The posterior cul-de-sac was manually cleared of all clots and debris. The uterus was returned to the abdomen. The gutters were then manually cleared of all clots and debris.? The uterine incision was visualized to be hemostatic. The fascia was reapproximated with 0-Vicryl in a running fashion. The subcutaneous tissues were irrigated with warmed normal saline, and hemostasis was assured. The skin was closed with 4-0 monocryl in a running subcuticular stitch. Fundal pressure was applied to express remaining intrauterine clots and debris. The patient tolerated the procedure well. Sponge, lap, and needle counts were correct times three per nursing. The patient was taken to the recovery room in stable condition. Specimen: No Estimated Blood Loss: 120 Pathology: None sent Complications: No immediate complications Condition: Stable Disposition: Floor [place] Baby Date of : 03/03/25 Gestational Age by Date: 39 Infant gender: Male Weight (pounds): 7 Weight (ounces): 1 presentation: vertex Placenta delivery description: Expressed Cord Vessel Description: 3 Vessels and Delayed Cord Clamping
[2025-03-04] MEDS: ACETAMINOPHEN 500 MG TABLET 1000 MG PO ×4 (01:44→19:30)
[2025-03-04] MEDS: KETOROLAC 15 MG/ML VIAL (*BKC) IV PUSH (01:44)
[2025-03-04 04:15] VITALS: BP 99/62; PULSE 76; RESP 20; TEMP 36.8; O2SAT 98
[2025-03-04 05:41] LABS: Hematocrit 35.3 % (37.0-47.0); Hemoglobin 11.0 g/dL (12.0-15.0); Immature Granulocyte Percent A 0.8 % (0-0.5); Immature Platelet Fraction Pct 5.1 % (0.9-11.2); Lymphocytes Absolute Auto 2.20 K/mm3 (0.9-3.2); Mean Corpuscular HGB Conc 31.2 g/dl (32-36); Mean Corpuscular Hemoglobin 28.4 pg (26-34); Mean Corpuscular Volume 91.2 fl (80-100); Nucleated Red Blood Cells Absolute Auto 0.000 K/mm3 (0.0-0.012); Nucleated Red Blood Cells Perc 0.0 % (0.0-0.2); Platelet Count Result 128 k/mm3 (150-375); Red Blood Count 3.87 M/mm3 (4.2-5.4); White Blood Count 8.9 K/mm3 (4.5-10.0)
[2025-03-04 06:25] LABS: Anisocytosis Occasional; Burr Cells 1+; Hypochromasia 1+; Schistocytes None Seen
[2025-03-04] MEDS: IBUPROFEN 600 MG TABLET PO ×3 (07:45→19:30)
[2025-03-04] MEDS: MULTIVIT/MIN/PREN/FOL AC/IRON TABLET 1 TAB PO (07:45)
[2025-03-04] MEDS: SIMETHICONE 80 MG TAB.CHEW PO ×3 (07:46→17:05)
[2025-03-04] MEDS: DOCUSATE SODIUM 100 MG CAPSULE PO ×2 (07:46→17:05)
[2025-03-04 08:50] VITALS: BP 118/86; PULSE 75; RESP 18; TEMP 36.7; O2SAT 99
--- NOTE | 2025-03-04 09:10 | P.PNOB_ITS ---
OB - PN: Subj Subjective Date/time seen: 03/04/25 09:10 Interval history: PPD#1 s/p RLTCS Pain around incision, somewhat improved with pain medicine Voiding without issue Passing flatus Tolerating general diet OB - PN: Obj Data Labs 03/04/25 04:07 Labs: Laboratory Results - last 24 hr 03/04/25 04:07 WBC 8.9 RBC 3.87 L Hgb 11.0 L Hct 35.3 L MCV 91.2 MCH 28.4 MCHC 31.2 L RDW 13.6 Plt Count 128 L MPV 11.1 H Immature Gran % (Auto) 0.8 H Neut % (Auto) 66.1 Lymph % (Auto) 24.7 [place] % (Auto) 6.9 Eos % (Auto) 1.2 Baso % (Auto) 0.3 Lymph # (Auto) 2.20 [place] # (Auto) 0.6 Eos # (Auto) 0.1 Baso # (Auto) 0.0 Abs Immat Gran (auto) 0.07 H Absolute Neuts (auto) 5.9 Absolute Nucleated RBC 0.000 Band Neutrophils % Not Reportable Nucleated RBC % 0.0 Platelet Estimate Decreased % Immature Plt Fraction 5.1 Hypochromasia 1+ Anisocytosis Occasional [place] Cells 1+ Schistocytes None seen OB - PN A/P Assessment and Plan (1) S/P : Code(s): Z98.891 - History of uterine scar from previous surgery Status: Acute Plan day: 1 Plan: routine care Time Spent With Patient Time: Total time spent is greater than 50% in coordination of care (as documented) at patient's floor/unit and/or counseling patient: Review of Systems 2 Review of Systems: All systems reviewed & are unremarkable except as noted in HPI and below Exam 2 Const: General: comfortable and no acute distress O rientation/consciousness: patient oriented x3 Resp: Effort & Inspection: normal respiratory effort GI: Other: soft, nontender, nondistended; incision c/d/i
--- NOTE | 2025-03-04 14:50 | WPDANLDPN2 ---
Anes-Prog Note L&D Date/Time: 03/04/25 14:50 Comfortable throughout: section Neuraxial method: spinal Epidural/Spinal procedure site: clean & non-tender Neuro status: Neuro function grossly intact. Cardiovascular status: normal Respiratory status: normal Airway patency: baseline Mental status: baseline Post-Op hydration status: normal Vital Signs: Last Vital Signs Temp 98.1 F 03/04/25 08:50 Pulse 75 03/04/25 08:50 Resp 18 03/04/25 08:50 BP 118/86 03/04/25 08:50 Pulse Ox 99 03/04/25 08:50 O2 Del Method Room Air 03/04/25 07:45 Pain score (VAS): 0/10 I/O: Intake & Output 03/03/25 03/04/25 03/04/25 23:59 07:59 15:59 Intake Total 500 0 Output Total 1173 063 800 Balance -224 -047 -268 Post-procedural complaints: none Patient feedback: Patient satisfied with anesthetic care.
--- NOTE | 2025-03-04 14:51 | WPDANLDNPN2 ---
Anes-Prog Note L&D-Neuraxial Date/Time: 03/04/25 14:51 Neuraxial medications: intrathecal PF morphine Opiod-related complaints: none Patient feedback: Patient satisfied with post-operative pain management.
--- NOTE | 2025-03-04 15:00 | PC.NURSE ---
Per her Primary RN, Trista Flower, also a CLC, mother is doing well at , she is still putting infant to breast and attempting to latch with each feeding, she is using her breast pump and supplementing with formula. Per Primary RN, no services needed at this time.
[2025-03-04 19:30] VITALS: BP 110/67; PULSE 87; RESP 16; TEMP 36.8; O2SAT 100
[2025-03-05] MEDS: IBUPROFEN 600 MG TABLET PO ×3 (01:25→15:22)
[2025-03-05] MEDS: ACETAMINOPHEN 500 MG TABLET 1000 MG PO ×3 (01:25→15:22)
[2025-03-05 07:50] VITALS: BP 129/77; PULSE 90; RESP 16; TEMP 36.8; O2SAT 98
[2025-03-05] MEDS: SIMETHICONE 80 MG TAB.CHEW PO ×2 (08:36→15:24)
[2025-03-05] MEDS: MULTIVIT/MIN/PREN/FOL AC/IRON TABLET 1 TAB PO (08:36)
[2025-03-05] MEDS: DOCUSATE SODIUM 100 MG CAPSULE PO (08:36)
--- NOTE | 2025-03-05 09:38 | P.PNOB_ITS ---
OB - PN: Subj Subjective Date/time seen: 03/05/25 09:38 Interval history: PPD#1 s/p RLTCS Pain around incision, somewhat improved with pain medicine Voiding without issue Passing flatus Tolerating general diet Patient comments: no complaints, pain well controlled, incisional pain, tolerating diet and flatus present OB - PN: Obj Data Labs 03/04/25 04:07 OB - PN A/P Plan day: 2 Plan: routine care Comments: POD#2 LTCS - no problems, Time Spent With Patient Time: Total time spent is greater than 50% in coordination of care (as documented) at patient's floor/unit and/or counseling patient: Exam 2 Const: General: comfortable, no acute distress and alert Resp: Effort & Inspection: normal respiratory effort Auscultation: no crackles, no rales and no rhonchi Cardio: Rate: regular rate Heart sounds: no click, no murmurs and no rubs GI: Inspection: non-distended Auscultation: normal bowel sounds Other: Incision - CDI Extrem: General: normal to inspection, no pedal edema and no calf tenderness
--- NOTE | 2025-03-05 09:39 | P.DS_ITS ---
DS: Admitting Diagnosis Discharge Date 03/05/2025 Admitting Diagnosis term DS: Discharge Diagnosis Discharge Diagnosis (1) S/P : Code(s): Z98.891 - History of uterine scar from previous surgery Status: Acute OB - DS: Summary OB Procedures : None OB Procedures Intrapartum: OB Procedures: : None Peripartum Data Procedures: Procedures Operation Date: 03/03/25 07:30 Actual Procedure Side Surgeon p Repeat Section Bilateral Keanu Slater MD Time Spent with Patient Time attestation: Total time spent providing and/or coordinating discharge services: Discharge Plan Discharge Discharging Clinician: Jacob Sanders Patient Disposition: Home Activity: pelvic rest Diet: regular Patient Instructions: Antibiotic Form Patient Language: Tamazight Stand Alone Forms: General Discharge Information Follow-up/Referrals: Jacob Sanders MD [Physician, [employer]] Discharge Medications: Continued PNV no.95-ferrous fumarate-FA [] 28 mg iron- 800 mcg tablet 1 tablet PO DAILY Date of admission: 03/03/25 05:12 Primary Care Provider: UNKNOWN,DOCTOR Admitting Provider: Keanu Slater Attending physician on admission: Keanu Slater Condition: Stable
--- NOTE | 2025-03-05 10:05 | PC.NURSE ---
Addendum entered by Mitzy Wise RN 03/05/25 15:44: [id number] Mother signed [facility] Referral and it was faxed to the [place], [place] office and original copy placed on mother's chart. Original Note: CLC RN to room, mother used her phone and her [employer], she was given a book in the Kisw[place]ili language. Consulted with mother concerning needs and she shared her ability to independently latch infant optimally without pain, she is using a breast pump and is supplementing as well. Mother is feeding appropriately for growth of infant and understands stimulating to eat if needed. Infant has had appropriate feedings in the last 24 hours meets the outcomes for weight, output, blood sugar and jaundice at this time. Reinforced understanding of milk production, transition of milk, signs of adequate intake, transition of stool, prevention/relief of engorgement, plugged ducts, mastitis, responsive watching for feeding cues, the different methods of stimulating infant to breastfeed 1-3 hours after the start of the last feeding, community resources, and when to call a provider using the resource of the feeding sheet along with the mom and baby guide. Mother voiced understanding of the information shared, is confident to continue effectively her at home, when to call for assistance, denies any additional assistance or education at this time. Reported to the Primary RN.
[2025-03-06 14:36] VITALS: BP 123/69; PULSE 90; RESP 20; TEMP 36.7; O2SAT 100
== END 2025-03-05 17:32 | disposition home or self-care (01) | DRG 788 ==
LOC: ANHOB2 03-05 09:41 → ANHLDR 03-08 09:10 → ANHOB2 03-08 09:10
PROVIDERS: Admitting Provider Obstetrics & Gynecology; Visit Provider Obstetrics & Gynecology
PROC: 10D00Z1 Extraction of Products of Conception, Low, Open Approach (ICD-10-PCS; CPT 59514; principal; 2025-03-03 07:30)
DX: O34.211 Maternal care for low transverse scar from previous cesarean delivery (principal); Z3A.39 39 weeks gestation of pregnancy; Z37.0 Single live birth; O77.0 Labor and delivery complicated by meconium in amniotic fluid
CPT/HCPCS: 36415; 85025; 85027; 85055; 86593; 86703; 86762; 86850; 86900; 86901; J0690; A9270; G0432; J1200; J1885; J2274; J2405; J2590; J7120